=== PATIENT | male | born 1950 | race Caucasian/White ===

== ENCOUNTER 2017-10-20 17:57 | Emergency (ER) | payer MEDICARE ==
[2017-10-20 18:36] LABS: Absolute Lymphocytes (CBC) 1.8 K/uL (0.7-4.9); Absolute Monocytes 0.6 K/uL (0.1-1.3); Absolute Neutrophil 3.1 K/uL (1.8-8.0); Basophils % 0.1 % (0-1.3); Eosinophils % 1.1 % (0-4.4); Hematocrit 38.2 % (39.6-49.0); Lymphocytes % 32.1 % (15.3-44.8); MCV 91.6 fL (80-100); MPV 7.2 fL (7.6-11.3); RBC Red Blood Cell Count 4.17 M/uL (4.33-5.43)
[2017-10-20 18:37] LABS: Barbiturates NEGATIVE (NEGATIVE); Benzodiazepines NEGATIVE (NEGATIVE); Cocaine NEGATIVE (NEGATIVE); METHAMPHETAM NEGATIVE (NEGATIVE); Methadone NEGATIVE (NEGATIVE); Opiates NEGATIVE (NEGATIVE); Phencyclidine NEGATIVE (NEGATIVE); THC Cannibis NEGATIVE (NEGATIVE)
[2017-10-20 18:41] LABS: Protime INR 0.99
[2017-10-20 18:43] LABS: ALT/SGPT 28 U/L (12-78); AST/SGOT 15 U/L (15-37); Albumin 3.8 g/dL (3.4-5.0); Alkaline Phosphatase 56 U/L (45-117); BUN Blood Urea Nitrogen 14 mg/dL (7-18); Bicarbonate 26 mmol/L (21-32); Bilirubin Direct < 0.1 mg/dL (0-0.2); Bilirubin Total 0.4 mg/dL (0.2-1.0); Glucose Level 95 mg/dL (74-106); Potassium 3.6 mmol/L (3.5-5.1); Protein, Total 7.1 g/dL (6.4-8.2); Sodium Level 137 mmol/L (136-145)
[2017-10-20 18:50] LABS: Alcohol Serum/Plasma 238 mg/dL (0-3)
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
[2017-10-20 19:32] LABS: Urine Blood TRACE (NEG); Urine Glucose NEGATIVE (NEG); Urine Protein NEGATIVE (NEG); Urine Specific Gravity <1.005 (1.005-1.030)
[2017-10-20] MEDS ORDERED: HALOPERIDOL LACT 5 MG/ML INJ ONE (19:35)
[2017-10-20] MEDS ORDERED: NA CHLORIDE 0.9% 1,000 ML ONE (19:35)
[2017-10-20] MEDS ORDERED: DIPHENHYDRAMINE 50 MG/ML VIAL ONE (19:38)
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
--- NOTE | 2017-10-20 23:41 | EDPHYS ---
Physician Documentation [facility] Name: Anette Reis Age: 67 yrs Sex: Male : 1950 Arrival Date: 10/20/2017 Time: 17:57 Bed 4 Private MD: ED Physician Russ Beverly HPI: 10/20 18:34 This 67 yrs old Male presents to ER via EMS with complaints of Fall Injury. snw 18:34 Trauma demographics: County: The injury occurred in [place] Location of Injury: The snw injury occurred at home, Date: October 20, 2017. Mechanism of injury: Fall: the patient fell from a standing position approximately into bathtub. Associated injuries: The patient sustained unknown. Onset: The symptoms/episode began/occurred suddenly, just prior to arrival. Historical: - Allergies: 17:59 NKDA; aj1 - Home Meds: 17:59 lorazepam 1 mg Oral tab 1 tab 2 times per day [Active]; tramadol 50 mg Oral tab 1 tab aj1 twice a day as needed [Active]; - PMHx: 17:59 Anxiety; Seizures; tinnitus; aj1 - Immunization history: Last tetanus immunization: unknown. - Social history:: Smoking status: . - Ebola Screening: : Patient negative for fever greater than or equal to 101.5 degrees Fahrenheit, and additional compatible Ebola Virus Disease symptoms Patient denies exposure to infectious person Patient denies travel to an Ebola-affected area in the 21 days before illness onset No symptoms or risks identified at this time. ROS: 18:32 Constitutional: Negative for fever, chills, and weight loss, states he fell backward snw into bathtub. Denies LOC. EMS states pt was being cared for by Sister who was unable to care for herself. Eyes: Negative for injury, pain, redness, and discharge, ENT: Negative for injury, pain, and discharge, Neck: Negative for injury, pain, and swelling, Cardiovascular: Negative for chest pain, palpitations, and edema, Respiratory: Negative for shortness of breath, cough, wheezing, and pleuritic chest pain, Abdomen/GI: Negative for abdominal pain, nausea, vomiting, diarrhea, and constipation, Back: Negative for injury and pain, : Negative for injury, bleeding, discharge, and swelling, MS/Extremity: Negative for injury and deformity, Skin: Negative for injury, rash, and discoloration, Neuro: Negative for headache, weakness, numbness, tingling, and seizure. Exam: 18:04 Head/Face: Normocephalic, atraumatic. snw 18:04 ENT: Nares patent. No nasal discharge, no septal abnormalities noted. Tympanic membranes are normal and external auditory canals are clear. Oropharynx with no redness, swelling, or masses, exudates, or evidence of obstruction, uvula midline. Mucous membranes moist. Neck: Trachea midline, no thyromegaly or masses palpated, and no cervical lymphadenopathy. Supple, full range of motion without nuchal rigidity, or vertebral point tenderness. No Meningismus. Chest/axilla: Normal chest wall appearance and motion. Nontender with no deformity. No lesions are appreciated. Cardiovascular: Regular rate and rhythm with a normal S1 and S2. No gallops, murmurs, or rubs. Normal PMI, no JVD. No pulse deficits. Respiratory: Lungs have equal breath sounds bilaterally, clear to auscultation and percussion. No rales, rhonchi or wheezes noted. No increased work of breathing, no retractions or nasal flaring. Abdomen/GI: Soft, non-tender, with normal bowel sounds. No distension or tympany. No guarding or rebound. No evidence of tenderness throughout. Back: No spinal tenderness. No costovertebral tenderness. Full range of motion. 18:04 MS/ Extremity: Pulses equal, no cyanosis. Neurovascular intact. Full, normal range of motion. 18:04 Constitutional: The patient appears awake, smells of alcohol, restless, unkempt, singing Oscar songs. 18:04 Eyes: Periorbital structures: appear normal, Pupils: right pupil is approximately 4 mm(s), left pupil is approximately 3 mm(s), Extraocular movements: nystagmus on extreme lateral gaze, Conjunctiva: normal, Corneas: are normal, Sclera: no appreciated abnormality. 18:04 : Bladder: incontinent. 18:04 Skin: lesion(s), ecchymosis to left lower quad/flank. 18:04 Neuro: Orientation: is normal, Mentation: responsive to voice lucid, obviously intoxicated with hx of etoh abuse, seizure activity, is not displayed by the patient. Vital Signs: 17:59 BP 124 / 90; Pulse 83; Resp 18; Pulse Ox 95% on R/A; aj1 19:53 BP 121 / 72; Pulse 67; Resp 18; Pulse Ox 97% on 2 lpm NC; tl2 20:00 BP 101 / 63; Pulse 61; Resp 18; Pulse Ox 97% on R/A; aj1 21:08 BP 112 / 75; Pulse 62; Resp 18; Pulse Ox 96% on R/A; aj1 21:28 BP 144 / 80; Pulse 71; Resp 16; Pulse Ox 95% on R/A; aj1 22:55 BP 129 / 77; Pulse 67; Resp 18; Pulse Ox 96% on R/A; Pain 0/10; aa1 10/21 02:00 BP 126 / 80; Pulse 65; Resp 16; Pulse Ox 96% on R/A; Pain 0/10; aa1 04:00 BP 134 / 81; Pulse 71; Resp 16; Temp 98.2; Pulse Ox 97% on R/A; Pain 0/10; aa1 MDM: 10/20 17:57 Patient medically screened. snw 19:36 Data reviewed: vital signs, nurses notes. Data interpreted: Pulse oximetry: on room air snw is 95 %. ED course: Dr. Kenney requests pt be given haldol 5mg and benadryl 25mg IV now. Pt pulled tech on him and was uncovering himself, attempts made to redirect. Pt voices understanding and continues with inappropriate behavior. 21:08 ED course: random yelling outbursts. Reoriented and awaiting clinical sober appearance. snw 22:14 Physician consultation: Yuan Kenney MD. snw 23:41 ED course: Pt sober at baseline. Will arrange transportation to home. Stable. . ps1 10/20 17:58 Order name: Basic Metabolic Panel; Complete Time: 19:02 snw 10/20 17:58 Order name: CBC with Diff; Complete Time: 18:41 snw 10/20 17:58 Order name: Creatinine for Radiology; Complete Time: 18:40 snw 10/20 17:58 Order name: Type And Screen; Complete Time: 19:35 snw 10/20 17:58 Order name: ETOH Level; Complete Time: 19:02 snw 10/20 17:59 Order name: PT-INR; Complete Time: 19:02 snw 10/20 17:58 Order name: CT Traumagram (Head C Spine CAP W Con); Complete Time: 19:19 snw 10/20 17:59 Order name: Ptt, Activated; Complete Time: 19:02 snw 10/20 17:59 Order name: LFT's; Complete Time: 19:02 snw 10/20 18:06 Order name: Urine Drug Screen; Complete Time: 18:40 jb1 10/20 18:56 Order name: Urine Dipstick--Ancillary (enter results); Complete Time: 19:35 rg2 10/20 19:29 Order name: ABO/RH no charge; Complete Time: 19:35 EDMS 10/20 17:58 Order name: C-Collar; Complete Time: 18:00 snw 10/20 17:58 Order name: Labs collected and sent; Complete Time: 19:31 snw 10/20 17:58 Order name: Urine Dipstick-Ancillary (obtain specimen); Complete Time: 18:06 snw 10/20 19:22 Order name: Misc. Order; Complete Time: 19:58 snw 10/21 07:34 Order name: Diet Regular; Complete Time: 07:34 10/21 10:13 Order name: Misc. Order: Please ambulate with pt in hallway; Complete Time: 17:20 snw Administered Medications: 19:35 CANCELLED (other intervention used): HALdol (as decanoate) 10 mg IM once snw 19:40 Drug: NS 0.9% 1000 ml Route: IV; Rate: 1000 ml; Site: right antecubital; fc 22:05 Follow up: IV Status: Completed infusion aa1 19:40 Drug: HALdol 5 mg Route: IVP; Site: right antecubital; fc 19:40 Drug: Benadryl 25 mg Route: IVP; Site: right antecubital; fc Disposition: 23:41 Co-signature as Attending Physician, Yuan Kenney MD I agree with the assessment and ps1 plan of care. Disposition: 10/20/17 23:40 Discharged to Home. Impression: Fall on same level, unspecified, Alcohol abuse with intoxication, unspecified. - Condition is Stable. - Discharge Instructions: Alcohol Intoxication, Alcohol Use Disorder, Fall Prevention and Home Safety. - Medication Reconciliation Form, Thank You Letter, Antibiotic Education, Prescription Opioid Use form. - Follow up: Private Physician; When: 2 - 3 days; Reason: Recheck today's complaints, Continuance of care, Re-evaluation by your physician. Follow up: Emergency Department; When: As needed; Reason: Worsening of condition. - Problem is an ongoing problem. - Symptoms have improved. Signatures: Dispatcher [employer] EDCT Shelbi Moreno RN RN aj1 Yasmin Vann, REGGIE-C FARM MANAGEMENT ADVISER-Csnw Catarina Zheng, RN RN fc Cristal Marin RN RN iw Tommy Falk RN ÁLVARO hj Yuan Kenney MD MD ps1 Sarah Mejias RN aa1 Corrections: (The following items were deleted from the chart) 19:35 19:21 HALdol (as decanoate) 10 mg IM once ordered. snw snw 10/21 10:35 10/20 23:40 10/20/2017 23:40 Discharged to Home. Impression: Fall on same level, hj unspecified; Alcohol abuse with intoxication, unspecified. Condition is Stable. Discharge Instructions: Alcohol Intoxication, Alcohol Use Disorder, Fall Prevention and Home Safety. Forms are Medication Reconciliation Form, Thank You Letter, Antibiotic Education, Prescription Opioid Use. Follow up: Private Physician; When: 2 - 3 days; Reason: Recheck today's complaints, Continuance of care, Re-evaluation by your physician. Follow up: Emergency Department; When: As needed; Reason: Worsening of condition. Problem is an ongoing problem. Symptoms have improved. ps1
[2017-10-21 10:59] VITALS: BP 134/81; TEMP 98.2; O2SAT 97
== END 2017-10-21 10:35 | disposition home or self-care (01) ==
LOC: ER 17:57
DX: F10.129 Alcohol abuse with intoxication, unspecified (principal); W18.2XXA Fall in (into) shower or empty bathtub, initial encounter; Y93.89 Activity, other specified; Y92.002 Bathroom of unspecified non-institutional (private) residence as the place of occurrence of the external cause; F41.9 Anxiety disorder, unspecified; G40.909 Epilepsy, unspecified, not intractable, without status epilepticus
CPT/HCPCS: 36415; 70450; 71260; 72125; 74177; 80048; 80076; 80307 ×8; 80320; 81003; 85025; 85610; 85730; 86850; 86900; 86901; J1630; J7030; Q9967; 96361; 96374; 96375; 99285

== ENCOUNTER 2018-11-06 20:33 | Inpatient (IN) | payer MEDICARE ==
--- OUTSIDE RECORDS SUMMARY | 2018-11-06 20:35 | XMS REPORT | Summary of Care ---
:1950 Author Organization [facility] [place] Address [address] [place] [address]- Encounter HQ Zainr_laureen(FIN) [id number] Date(s): 09/05/18 - 09/06/18 [facility] [address] [place] [address]- [phone] Vital Signs No data available for this section Problem List Condition Effective Dates Status Health Status Informant Complex partial seizure(Confirmed) Active Meningocele(Confirmed) Active Tinnitus(Confirmed) Active Allergies, Adverse Reactions, Alerts Substance Reaction Severity Status TEGretol Active Medications No data available for this section Results No data available for this section Immunizations No data available for this section Procedures Procedure Date Related Diagnosis Body Site Status Craniotomy Completed Social History Social History Type Response Employment/School 1 Alcohol Current2 Smoking Status Former smoker; Type: Cigars; Exposure to Tobacco Smoke None; Cigarette Smoking Last 365 Days No; Reg Smoking Cessation Counseling No entered on: 07/24/18 1Pt. does not have a power of Vascular Neurologist. Can release medical information to Chayito Clements-Sister, Kath Espino-Sister, Rosina Richardson-Niece, Ladonna Dewitt- [id number] every day Assessment and Plan No data available for this section
--- OUTSIDE RECORDS SUMMARY | 2018-11-06 20:35 | XMS REPORT | Continuity of Care Document ---
:1950 Author Organization [facility] Care Team Providers Name Role Phone [facility] Unavailable Unavailable Problems Problem Status Onset Classification Date Comments Source Date Reported Complex partial Active Problem 09/14/2018 [facility] seizure Neuro Meningocele Active Problem 09/14/2018 [facility] Tinnitus Active Problem 09/14/2018 [facility] Neuro Medications No Data Provided for This Section Allergies, Adverse Reactions, Alerts Substance Category Reaction Severity Reaction Status Date Comments Source type Reported TEGretol Assertion Drug Active [facility] allergy Neuro Immunizations No Data Provided for This Section Results No Data Provided for This Section Pathology Reports No Data Provided for This Section Diagnostic Reports No Data Provided for This Section Consultation Notes No Data Provided for This Section Discharge Summaries No Data Provided for This Section History and Physicals No Data Provided for This Section Vital Signs Vital Sign Value Date Comments Source Height 177.8 cm 09/12/2018 [facility] Neuro BMI Calculated 29.91 09/12/2018 [facility] Weight 94.545 09/12/2018 [facility] Neuro Systolic (mm Hg) 126 09/12/2018 [facility] Neuro Diastolic (mm Hg) 71 09/12/2018 [facility] Neuro Respitory Rate 16 09/12/2018 [facility] Neuro Heart Rate 82 09/12/2018 [facility] Neuro Encounters Location Location Encounter Encounter Reason Attending ADM DC Status Source Details Type Number For Provider Date Date Visit Outpatient [id number] Sunday 07/24 [facility] Outpatient [id number] Sunday 08/07 [facility] Outpatient [id number] Sunday 08/28 [facility] [facility] Ambulatory [id number] Sunday 08/28 08/28 [facility] Neurology Pre-Reg [facility] /2018 [facility] [place] [facility] Outside [id number] 09/05 09/07 [facility] Neurology Medical /2018 Neuro [place] Records Outpatient [id number] Sunday 09/12 Active [facility] MNA Outpatient [id number] Sunday 09/12 09/13 [facility] Neurology [facility] /2018 [facility] [place] Outpatient [id number] Sunday 01/16 [facility] Procedures Procedure Code Date Perfomer Comments Source Craniotomy [id number] [facility] Neuro Assessment and Plan No Data Provided for This Section Plan of Care No Data Provided for This Section Social History Social History Date Source Social History TypeResponse 07/24/2018 [facility] Neuro Employment/School 1 Alcohol Current2 Smoking Status Former smoker; Exposure to Tobacco Smoke Unable to obtain; Cigarette Smoking Last 365 Days Unable to obtain; Reg Smoking Cessation Counseling No entered on: 09/12/18 1Pt. does not have a power of Doughnut Glazier. Can release medical information to Chayito Tyree-Sister, Kath Espino-Sister, Rosina Richardson-Niece, Ladonna Dewitt- [id number] every day Family History No Data Provided for This Section Advance Directives No Data Provided for This Section Functional Status No Data Provided for This Section
--- OUTSIDE RECORDS SUMMARY | 2018-11-06 20:35 | XMS REPORT | Summary of Care ---
:1950 Author Organization [facility] Neurology [place] Address [address] [place] [address]- Encounter HQ Yesika(FIN) [id number] Date(s): 09/12/18 - 09/12/18 [facility] [address], [place] [id number]- [phone] Discharge Disposition: Home or Self Care Attending Physician: Sunday Rivera MD Referring Physician: Christoph Neely MD Vital Signs Most recent to oldest [Reference Range]: 1 Height 177.8 cm (09/12/18 11:36 AM) Blood Pressure [90-140/60-90 mmHg] 126/71 mmHg (09/12/18 11:36 AM) Respiratory Rate [14-20 BRMIN] 16 BRMIN (09/12/18 11:36 AM) Peripheral Pulse Rate [60-100 bpm] 82 bpm (09/12/18 11:36 AM) Weight 94.545 kg (09/12/18 11:36 AM) Body Mass Index 29.91 m2 (09/12/18 11:36 AM) Problem List Condition Effective Dates Status Health Status Informant Complex partial seizure(Confirmed) Active Meningocele(Confirmed) Active Tinnitus(Confirmed) Active Allergies, Adverse Reactions, Alerts Substance Reaction Severity Status TEGretol Active Medications No Known Medications Results No data available for this section [...] 1Pt. does not have a power of Field Checker. Can release medical information to Chayito Clements-Sister, Kath Espino-Sister, Rosina King, Ladonna Singh2Almost every day Assessment and Plan No data available for this section
[2018-11-06] MEDS ORDERED: NA CHLORIDE 0.9% 1,000 ML ONE (21:06)
[2018-11-06] MEDS ORDERED: MULTIVITAMINS 10 ML VIAL (INJ) IV ONE (21:06)
[2018-11-06] MEDS ORDERED: THIAMINE 200 MG/2 ML INJ ONE (21:06)
[2018-11-06] MEDS ORDERED: FOLIC ACID 5 MG/ML VIAL ONE (21:07)
[2018-11-06 21:37] LABS: Absolute Lymphocytes (CBC) 0.7 K/uL (0.7-4.9); Basophils % 0.2 % (0-1.3); Eosinophils % 0.3 % (0-4.4); Lymphocytes % 5.2 % (15.3-44.8); MPV 7.7 fL (7.6-11.3); Monocytes % 7.6 % (3.3-12.3); RBC Red Blood Cell Count 4.78 M/uL (4.33-5.43)
[2018-11-06 21:42] LABS: Protime INR 1.03
[2018-11-06 21:57] LABS: Blood Morphology Comment NOT SEEN (NOT SEEN); Platelet Estimate ADEQ; Urine White Blood Cell Casts OK
[2018-11-06 22:03] LABS: ALT/SGPT 30 U/L (12-78); AST/SGOT 18 U/L (15-37); Albumin 3.9 g/dL (3.4-5.0); Alkaline Phosphatase 44 U/L (45-117); BUN Blood Urea Nitrogen 19 mg/dL (7-18); Bicarbonate 26 mmol/L (21-32); Bilirubin Direct 0.2 mg/dL (0-0.2); Bilirubin Total 0.7 mg/dL (0.2-1.0); Glucose Level 109 mg/dL (74-106); Potassium 3.5 mmol/L (3.5-5.1); Protein, Total 7.3 g/dL (6.4-8.2); Sodium Level 135 mmol/L (136-145); Troponin (Emerg Dept Use Only) < 0.02 ng/mL (0.0-0.045)
--- NOTE | 2018-11-06 22:34 | ER ---
Nurse's Notes [facility] Name: Anette Reis Age: 68 yrs Sex: Male : 1950 Arrival Date: 11/06/2018 Time: 20:34 Bed 8 Private MD: Diagnosis: Syncope and collapse Presentation: 11/06 20:44 Presenting complaint: EMS states: they were toned out for a lift assist for a pt who bb had fallen from the toilet and was unable to get up pt was between the toilet and the wall and was down approx 10 minutes prior to their arrival. Care prior to arrival: None. Mechanism of Injury: Fall toilet. Trauma event details: Injury occurred in the [facility], Injury occurred: at home. Injury occurred: November 06, 2018. 20:44 Acuity: RICO 2 bb 20:44 Method Of Arrival: EMS: [facility] bb 20:58 Transition of care: patient was not received from another setting of care. Onset of bb symptoms was November 06, 2018. Risk Assessment: Do you want to hurt yourself or someone else? Patient reports no desire to harm self or others. Initial Sepsis Screen: Does the patient meet any 2 criteria? No. Patient's initial sepsis screen is negative. Does the patient have a suspected source of infection? No. Patient's initial sepsis screen is negative. Historical: - Allergies: 23:36 NKDA; bb - Home Meds: 23:36 lorazepam 1 mg Oral tab 1 tab [Active]; tramadol 50 mg Oral tab 1 tab twice a day as bb needed [Active]; - PMHx: 23:36 Anxiety; Seizures; tinnitus; bb - Immunization history: Last tetanus immunization: unknown. - Social history:: Patient/guardian denies using alcohol, street drugs, The patient lives with family, Smoking status: unknown. - Family history:: not pertinent. - Ebola Screening: : No symptoms or risks identified at this time. Screenin/09 21:00 Nutritional screening: EMS states pt is given Ritz crackers for food.. bb 11/06 20:44 Abuse screen: Denies threats or abuse. Tuberculosis screening: No symptoms or risk bb factors identified. 21:00 Fall Risk Fall in past 12 months (25 points). Secondary diagnosis (15 points) impaired bb mobility, IV access (20 points). Ambulatory Aid- None/Bed Rest/Nurse Assist (0 pts). Mental Status- Overestimates/Forgets Limitations (15 pts.). Total Anand Fall Scale indicates High Risk Score (45 or more points). Fall prevention measures have been instituted. Side Rails Up X 2. Primary Survey: 20:44 NO uncontrolled hemorrhage observed. Breathing/Chest: Respiratory pattern: regular, bb Respiratory effort: spontaneous, unlabored, Breath sounds: clear, bilaterally. Chest inspection: symmetrical rise and fall of the chest. Circulation: Heart tones present. Pulses: palpable right radial artery, right dorsalis pedis artery, left radial artery and left dorsalis pedis artery. Skin color: pink, Skin temperature: warm. Disability Alert. Exposure/Environment: All clothing and personal items were removed. Forensic evidence collection is not deemed to be indicated at this time. Items placed in patient belonging bag. Secondary Survey: 20:44 HEENT: No deficits noted. Gastrointestinal: Bowel sounds hyperactive in right upper bb quadrant, left upper quadrant, right lower quadrant and left lower quadrant. : No deficits noted. Musculoskeletal: Circulation, motion, and sensation intact. Assessment: 20:44 General: Appears in no apparent distress. slender, unkempt, Behavior is calm, bb cooperative, listless. Pain: Complains of pain in abdomen. Neuro: Level of Consciousness is awake, alert, obeys commands, Oriented to person, place. Cardiovascular: Heart tones S1 S2 present Capillary refill < 3 seconds Patient's skin is warm and dry. Pulses are all present. Edema is absent. Rhythm is sinus tachycardia. Respiratory: Airway is patent Respiratory effort is even, unlabored, Respiratory pattern is regular, Breath sounds are clear bilaterally. GI: Abdomen is flat, Bowel sounds hyperactive in right upper quadrant, left upper quadrant, right lower quadrant and left lower quadrant Abd is soft X 4 quads. Derm: Skin is pink, warm \T\ dry. Derm: Decubitus located on left big toe. Musculoskeletal: Circulation, motion, and sensation intact. 21:00 Reassessment: turbine technician and this RN at bedside for bed bath, pt has decubitis on right bb gluteus with blanching erythema to buttocks and right hip. 21:40 Reassessment: Patient and/or family updated on plan of care and expected duration. Pain bb level reassessed. pt to CT scan via stretcher with automation control technician. 23:00 Reassessment: pt resting quietly, IV site intact, patent with fluids infusing awaiting bb room assignment. 23:58 Reassessment: Patient and/or family updated on plan of care and expected duration. Pain bb level reassessed. pt is resting quietly, given juice, IV site intact, patent with fluids infusing. 11/07 00:39 Reassessment: report called to Brian REA for room 402, pt is A\T\O x 2, resp unlabored, IV bb site intact, patent with fluids infusing, pt transported via stretcher accompanied by turbine technician. Vital Signs: 11/06 20:44 BP 117 / 88; Pulse 106; Resp 24 S; Temp 99.5(O); Pulse Ox 92% on R/A; bb 21:45 BP 125 / 89; Pulse 94; Resp 16 S; Pulse Ox 93% on R/A; bb 22:59 BP 127 / 91; Pulse 84; Resp 22; Pulse Ox 95% on R/A; bb 23:58 BP 140 / 86; Pulse 77; Resp 22; Pulse Ox 92% on R/A; bb [place] Coma Score: 20:44 Eye Response: spontaneous(4). Verbal Response: oriented(5). Motor Response: obeys bb commands(6). Total: 15. Trauma Score (Adult): 20:44 Eye Response: spontaneous(1); Verbal Response: oriented(1); Motor Response: obeys bb commands(2); Systolic BP: > 89 mm Hg(4); Respiratory Rate: 10 to 29 per min(4); Ja Score: 15; Trauma Score: 12 ED Course: 20:34 Patient arrived in ED. am2 20:35 Kenneth Maradiaga MD is Attending Physician. ma2 20:43 Kylee Herman, ÁLVARO is Primary Nurse. bb 20:44 Patient has correct armband on for positive identification. Placed in gown. Bed in low bb position. Call light in reach. Side rails up X2. Patient maintains SpO2 saturation greater than 95% on room air. satellite project site monitor on. Pulse ox on. NIBP on. 20:44 Arm band placed on. bb 20:47 Triage completed. bb 20:52 Radiology exam delayed due to getting sponge bath at this time, TALIA WAGON DRILL OPERATOR to call 2 when pt ready. 21:00 Turned to right side. bb 21:26 Initial lab(s) drawn, by me, sent to lab. EKG done, by ED staff, reviewed by Kenneth Maradiaga MD. Inserted saline lock: 20 gauge in right forearm, using aseptic technique. 21:[address] jc 21:51 CT Head Brain wo Cont In Process Unspecified. EDMS 22:32 Henrry Almaraz MD is Hospitalizing Provider. ma2 23:40 Patient admitted, IV remains in place. bb 23:41 No provider procedures requiring assistance completed. bb 23:52 Turned to left side. bb 23:55 Diet: Patient given juice. bb Administered Medications: 21:35 Drug: Banana Bag - (NS 0.9% 1000 ml, foLIC Acid 1 mg, Thiamine 100 mg, Multivitamin 1 bb amp) Route: IV; Rate: calculated rate; Site: right forearm; 11/07 00:42 Follow up: IV Status: Infusion continued upon admission; IV Intake: 750ml bb Intake: 11/06 20:44 PO: 0ml; Total: 0ml. bb 11/07 00:42 IV: 750ml; Total: 750ml. bb Outcome: 11/06 22:33 Decision to Hospitalize by Provider. ma2 23:01 Instructed on the need for admit. bb 11/07 00:41 Admitted to Tele accompanied by tech, via stretcher, room 402, with chart, Report bb called to Brian REA Condition: stable 00:44 Patient left the ED. bb Signatures: Dispatcher [employer] EDKylee Morrissey RN RN Salvador Li Amanda am2 [place], [facility] Kenneth Maradiaga MD MD riEvens Corrections: (The following items were deleted from the chart) 11/06 22:25 20:44 Neuro: Level of Consciousness is awake, alert, obeys commands, Oriented to bb person, place, situation, bb 22:25 21:40 Reassessment: Patient and/or family updated on plan of care and expected bb duration. Pain level reassessed. Patient is alert, oriented x 3, equal unlabored respirations, skin warm/dry/pink. pt to CT scan via stretcher with automation control technician lela
--- NOTE | 2018-11-06 22:34 | EDPHYS ---
Physician Documentation [facility] Name: Anette Reis Age: 68 yrs Sex: Male : 1950 Arrival Date: 11/06/2018 Time: 20:34 Bed 8 Private MD: ED Physician Kenneth Maradiaga HPI: 11/06 22:31 This 68 yrs old Male presents to ER via EMS with complaints of Fall Injury. ma2 22:31 Details of fall: The patient fell from seated position. Onset: The symptoms/episode ma2 began/occurred suddenly, 1 hour(s) ago. Associated injuries: The patient sustained injury to the head. Severity of symptoms: At their worst the symptoms were moderate, in the emergency department the symptoms are unchanged. It is unknown whether or not the patient has had similar symptoms in the past. Historical: - Allergies: 23:36 NKDA; bb - Home Meds: 23:36 lorazepam 1 mg Oral tab 1 tab [Active]; tramadol 50 mg Oral tab 1 tab twice a day as bb needed [Active]; - PMHx: 23:36 Anxiety; Seizures; tinnitus; bb - Immunization history: Last tetanus immunization: unknown. - Social history:: Patient/guardian denies using alcohol, street drugs, The patient lives with family, Smoking status: unknown. - Family history:: not pertinent. - Ebola Screening: : No symptoms or risks identified at this time. ROS: 22:31 Constitutional: Negative for fever, chills, and weight loss. ma2 22:31 All other systems are negative. Exam: 22:31 Constitutional: This is a well developed, well nourished patient who is awake, alert, ma2 and in no acute distress. Chest/axilla: Normal chest wall appearance and motion. Nontender with no deformity. No lesions are appreciated. Cardiovascular: Regular rate and rhythm with a normal S1 and S2. No gallops, murmurs, or rubs. Normal PMI, no JVD. No pulse deficits. Respiratory: Lungs have equal breath sounds bilaterally, clear to auscultation and percussion. No rales, rhonchi or wheezes noted. No increased work of breathing, no retractions or nasal flaring. Abdomen/GI: Soft, non-tender, with normal bowel sounds. No distension or tympany. No guarding or rebound. No evidence of tenderness throughout. MS/ Extremity: Pulses equal, no cyanosis. Neurovascular intact. Full, normal range of motion. Neuro: Awake and alert, GCS 15, oriented to person, place, time, and situation. Cranial nerves II-XII grossly intact. Motor strength 5/5 in all extremities. Sensory grossly intact. Cerebellar exam normal. Normal gait. Vital Signs: 20:44 BP 117 / 88; Pulse 106; Resp 24 S; Temp 99.5(O); Pulse Ox 92% on R/A; bb 21:45 BP 125 / 89; Pulse 94; Resp 16 S; Pulse Ox 93% on R/A; bb 22:59 BP 127 / 91; Pulse 84; Resp 22; Pulse Ox 95% on R/A; bb 23:58 BP 140 / 86; Pulse 77; Resp 22; Pulse Ox 92% on R/A; bb [place] Coma Score: 20:44 Eye Response: spontaneous(4). Verbal Response: oriented(5). Motor Response: obeys bb commands(6). Total: 15. Trauma Score (Adult): 20:44 Eye Response: spontaneous(1); Verbal Response: oriented(1); Motor Response: obeys bb commands(2); Systolic BP: > 89 mm Hg(4); Respiratory Rate: 10 to 29 per min(4); Ja Score: 15; Trauma Score: 12 MDM: 20:35 Patient medically screened. [facility] 22:31 Differential diagnosis: contusion, fracture, laceration, sprain, strain. Data reviewed: [facility] vital signs, nurses notes. Counseling: I had a detailed discussion with the patient and/or guardian regarding: the historical points, exam findings, and any diagnostic results supporting the discharge/admit diagnosis, the presence of at least one elevated blood pressure reading (>120/80) during this emergency department visit, the need for further work-up and treatment in the hospital. Response to treatment: the patient's symptoms have markedly improved after treatment. 11/07 00:23 ED course: D-Dimer reported to Dr Almaraz. kb 11/06 20:41 Order name: Troponin (emerg Dept Use Only); Complete Time: 22:29 ma2 11/06 20:41 Order name: Acetaminophen; Complete Time: 22:29 vt2 11/06 20:41 Order name: Basic Metabolic Panel; Complete Time: 22:29 [facility] 11/06 20:41 Order name: CBC with Diff; Complete Time: 22:29 [facility] 11/06 20:41 Order name: ETOH Level; Complete Time: 22:29 [facility] 11/06 20:41 Order name: Hepatic Function; Complete Time: 22:29 [facility] 11/06 20:41 Order name: CT Head Brain wo Cont [facility] 11/06 20:41 Order name: PT-INR [facility] 11/06 20:41 Order name: Ptt, Activated [facility] 11/06 20:41 Order name: Salicylate; Complete Time: 22:29 [facility] 11/06 20:41 Order name: Urine Drug Screen [facility] 11/06 21:41 Order name: CBC Smear Scan; Complete Time: 22:29 [facility] 11/06 22:32 Order name: Urine Dipstick--Ancillary (enter results) [facility] 11/07 00:21 Order name: D-Dimer [facility] 11/06 20:41 Order name: Urine Dipstick-Ancillary (obtain specimen); Complete Time: 22:06 [facility] 11/06 20:41 Order name: EKG; Complete Time: 20:42 [facility] 11/06 20:41 Order name: EKG - Nurse/Tech; Complete Time: 21:37 [facility] 11/06 20:41 Order name: IV Saline Lock; Complete Time: 21:37 [facility] 11/06 20:41 Order name: Labs collected and sent; Complete Time: 21:37 [facility] Administered Medications: 11/06 21:35 Drug: Banana Bag - (NS 0.9% 1000 ml, foLIC Acid 1 mg, Thiamine 100 mg, Multivitamin 1 bb amp) Route: IV; Rate: calculated rate; Site: right forearm; 11/07 00:42 Follow up: IV Status: Infusion continued upon admission; IV Intake: 750ml bb Disposition: 02:12 Co-signature as Attending Physician, Kenneth Maradiaga MD. [facility] Disposition: 11/06/18 22:33 Hospitalization ordered by Henrry Almaraz for Observation. Preliminary diagnosis is Syncope and collapse. - Bed requested for Telemetry/MedSurg (observation). - Status is Observation. bb - Condition is Stable. - Problem is new. - Symptoms are unchanged. UTI on Admission? No Signatures: Dispatcher [employer] EDMS Cynthia Figueroa, BALL MILL MIXER-C BALL MILL MIXER-Ckb Kylee Herman RN RN bb Roshni Sandoval RN RN Kenneth Maradiaga MD MD ma2 Corrections: (The following items were deleted from the chart) 11/06 23:52 22:33 Hospitalization Ordered by Henrry Almaraz MD for Observation. Preliminary cg diagnosis is Syncope and collapse. Bed requested for Telemetry/MedSurg (observation). Status is Observation. Condition is Stable. Problem is new. Symptoms are unchanged. UTI on Admission? No. ma2 11/07 00:44 11/06 23:52 11/06/2018 22:33 Hospitalization Ordered by Henrry Almaraz MD for bb Observation. Preliminary diagnosis is Syncope and collapse. Bed requested for Telemetry/MedSurg (observation). Status is Observation. Condition is Stable. Problem is new. Symptoms are unchanged. UTI on Admission? No.
--- NOTE | 2018-11-06 23:49 | P.HP ---
Certification for Inpatient Patient admitted to: Observation With expected LOS: <2 Midnights Practitioner: I am a practitioner with admitting privileges, knowledge of patient current condition, hospital course, and medical plan of care. Services: Services provided to patient in accordance with Admission requirements found in Title 42 Section 412.3 of the Code of Federal Regulations Patient History Date of Service: 11/06/18 Reason for admission: syncope History of Present Illness: Mr Reis is a 68 years old male with history of alcohol abuse, HTN, seizure disorder, who had a fall while he was on the toilet. Family member called 911 because the patient was stuck between the wall and the toilete, unable to stand up. At my encounter the patient was very confused, unable to provide history. alcohol level was 5. No reported chest pain, SOB or palpitation, per EMS records , prior the fall. CT head remarkable for significant atrophy, no obvious intracranial bleeding, awaiting radiology report. Lab work shows WBC 12.1K, he was tachycardic 116 bpm, BP 117/88, afebrile, O2 sat 92% on RA. EKG shows normal SR at 100 bpm, incomplete RBBB, no ST abnormalities, T wave inverion on anterior leads (not new). Allergies No Known Allergy (Uncoded 12/28/16 17:59) Unknown No Known Drug Allergy (Uncoded 09/29/15 19:13) Unknown No Known Drug Allergie Allergy (Uncoded 10/21/17 10:39) Unknown Home Medications: Loperamide [Imodium*] 2 mg PO Q4HP PRN #30 cap 01/20/14 - Past Medical/Surgical History Diabetic: No -: Seizure -: Constipation -: Hemorriods -: Tinnitis -: etoh abuse -: Craniotomy in 2004 - Family History Family History: Reviewed- Non-Contributory - Social History Alcohol use: Yes Caffeine use: Yes Place of Residence: Home Review of Systems 10-point ROS is otherwise unremarkable Physical Examination - Physical Exam General: Alert, In no apparent distress, Confused HEENT: Atraumatic, PERRLA, Mucous membr. moist/pink, EOMI, Sclerae nonicteric Neck: Supple, 2+ carotid pulse no bruit, No LAD, Without JVD or thyroid abnormality Respiratory: Clear to auscultation bilaterally, Normal air movement Cardiovascular: Regular rate/rhythm, Normal S1 S2 Gastrointestinal: Normal bowel sounds, No tenderness Musculoskeletal: Tenderness (tender to palpation left calf) Integumentary: No rashes Neurological: Normal speech, Normal strength at 5/5 x4 extr, Normal tone, Normal affect Lymphatics: No axilla or inguinal lymphadenopathy - Studies Laboratory Data (last 24 hrs) 11/06/18 21:26: PT 12.1, INR 1.03, APTT 26.4 11/06/18 21:26: WBC 12.9 H, Hgb 14.2, Hct 43.0, Plt Count 231 11/06/18 21:26: Sodium 135 L, Potassium 3.5, BUN 19 H, Creatinine 1.09, Glucose 109 H, Total Bilirubin 0.7, AST 18, ALT 30, Alkaline Phosphatase 44 L Assessment and Plan - Problems (Diagnosis) (1) Fall Current Visit: Yes Status: Acute Qualifiers: Encounter type: initial encounter Qualified Code(s): W19.XXXA - Unspecified fall, initial encounter (2) Acute encephalopathy Current Visit: Yes Status: Acute (3) ETOH abuse Current Visit: No Status: Acute - Plan The patient will be admitted to the hospital due to fall, acute encephalopathy. Differential diagnosis include, alcohol intoxication, seizure, CVA, thromboembolic episode. Will order brain MRI, d-dimer. Fall precaution. - Advance Directives Does patient have a Living Will: No Does patient have a Durable POA for Healthcare: No - Code Status/Comfort Care Code Status Assessed: Yes Code Status: Full Code
[2018-11-07 00:01] LABS: Barbiturates NEGATIVE (NEGATIVE); Benzodiazepines NEGATIVE (NEGATIVE); Cocaine NEGATIVE (NEGATIVE); METHAMPHETAM NEGATIVE (NEGATIVE); Methadone NEGATIVE (NEGATIVE); Opiates NEGATIVE (NEGATIVE); Phencyclidine NEGATIVE (NEGATIVE); THC Cannibis NEGATIVE (NEGATIVE)
[2018-11-07 00:17] LABS: Urine Blood NEGATIVE (NEG); Urine Glucose NEGATIVE (NEG); Urine Protein 2+ (NEG); Urine Specific Gravity >1.030 (1.005-1.030); Urine pH 5.5 (5.0-7.0)
[2018-11-07] MEDS: NA CHLORIDE 0.9% 1,000 ML IV SCH ×2 (01:13→04:50)
[2018-11-07] MEDS ORDERED: ONDANSETRON 4 MG/2 ML VIAL IV PRN (01:13)
[2018-11-07 01:16] VITALS: BMI 25.0
[2018-11-07 05:20] LABS: Absolute Lymphocytes (CBC) 1.4 K/uL (0.7-4.9); Basophils % 0.3 % (0-1.3); Eosinophils % 0.5 % (0-4.4); Hematocrit 37.2 % (39.6-49.0); Lymphocytes % 15.5 % (15.3-44.8); MPV 7.8 fL (7.6-11.3); RBC Red Blood Cell Count 4.15 M/uL (4.33-5.43)
[2018-11-07 05:34] LABS: Potassium 3.5 mmol/L (3.5-5.1)
--- NOTE | 2018-11-07 07:36 | EKG ---
Test Date: 2018-11-06 Test Time: 21:35:51 Primary Care Nurse Practitioner: AG3 MEASUREMENT RESULTS: Intervals: Rate: 94 FL: 204 QRSD: 98 QT: 392 QTc: 490 [place]field: P: 53 FL: 204 QRS: -68 T: 24 INTERPRETIVE STATEMENTS: Normal sinus rhythm Left axis deviation Incomplete right bundle branch block Anterior infarct, age undetermined ST & T wave abnormality, consider lateral ischemia Abnormal ECG Compared to ECG 12/28/2016 14:27:13 Incomplete right bundle-branch block now present Myocardial infarct finding now present ST (T wave) deviation now present First degree AV block no longer present T-wave abnormality no longer present Possible ischemia still present Electronically Signed On 11-07-18 07:35:24 CDT by Aristeo Mcguire
--- NOTE | 2018-11-07 08:52 | RAD REPORT ---
EXAM DESCRIPTION: US - Extrem Venous W Compress Loyd - 11/07/2018 8:46 am CLINICAL HISTORY: Bilateral calf pain COMPARISON: None. TECHNIQUE: Real-time sonographic evaluation of the bilateral lower extremity common femoral, superfi cial femoral, popliteal and posterior tibial veins was performed. FINDINGS: Normal compressibility, flow augmentation, phasic flow and spontaneous flow are identified in the left and right lower extremity common femoral, superficial femoral, popliteal and posterior t ibial veins. No intraluminal filling defects seen. IMPRESSION: No DVT in either lower extremity.
[2018-11-07] MEDS ORDERED: POTASSIUM 25 MEQ EFFERV TAB PO ONE (09:00)
[2018-11-07] MEDS: FOLIC ACID 1 MG, MULTIVITAMINS INJ 10 ML, THIAMINE HCL 100 MG in NA CHLORIDE 0.9% 1,000 ML IV SCH (09:25)
[2018-11-07] MEDS: ENOXAPARIN 40 MG/0.4 ML SQ SCH (09:28)
--- NOTE | 2018-11-07 11:10 | RAD REPORT ---
EXAM DESCRIPTION: CT - Head Brain Wo Cont - 11/07/2018 4:36 am CLINICAL HISTORY: 68 years Male CONFUSED COMPARISON: MRI brain without contrast dated 09/03/2018 TECHNIQUE: Contiguous axial images of the brain were obtained without the administration of intraven ous contrast.This exam was performed according to our departmental dose-optimization program which in cludes use of Automated Exposure Control, adjustment of the mA and/or kV according to patient size an d/or use of iterative reconstruction technique. FINDINGS: Brain: Prior right temporal and left frontal temporal marty holes. Unchanged large area of encephalomalacia involving the right frontotemporal lobe. No acute intracranial hemorrhage. No extra- axial collection. No mass effect or herniation. Unchanged prominence of the sulci and cisterns Conf luent periventricular and subcortical white matter hypodensity is noted. Continued evidence of sugges tive meningocele in the right middle cranial fossa. Ventricles: Allowing for underlying cerebral volume loss, ventricular size appears within normal limi ts. Globes and orbits: No acute abnormality. Bones: No acute osseous finding. Paranasal sinuses: Paranasal sinuses are clear.. Mastoid air cells: Well pneumatized. Soft tissues: Within normal limits IMPRESSION: No acute intracranial hemorrhage, hydrocephalus or herniation. Redemonstration of postsurgical changes as well as right frontotemporal encephalomalacia and right mi ddle cranial fossa meningocele. Cerebral volume loss and chronic small vessel ischemic changes.. Electronically signed by: Aristeo Elaine DO 11/06/2018 10:03 PM CDT Due to temporary technical issues with the PACS/Fluency reporting system, reports are being signed b y the in house radiologist as a courtesy to ensure prompt reporting. The interpreting radiologist is fully responsible for the content of the report.
--- NOTE | 2018-11-07 13:30 | PN ---
Date of Progress Note: 11/07/2018 Subjective: The patient seen and examined. Chart reviewed and case discussed with RN. The patient definitely has some confabulation, not a good history provider. No acute signs of alcohol withdrawal. Medications: List reviewed. Code Status: Full. Physical Examination: Vital Signs: Temperature 97.4, heart rate 63, blood pressure 119/72, respirations 20, O2 96% on room air. General: Awake, alert, and oriented x1, not in any acute distress. Appears older than stated age. CV: S1 and S2. Regular rate and rhythm. Peripheral pulses present. Respiratory: Diminished breath sounds at the bases. No wheezing or crackles. Gastrointestinal: Abdomen is soft, nontender, nondistended. Positive bowel sounds. Extremities: No clubbing, cyanosis, or edema. Neurologic: Cranial nerves 2 through 12 intact grossly. No focal neurological deficit. Speech is normal. Laboratory Data: Sodium 138, potassium 3.5, chloride 104, CO2 29, BUN 17, creatinine 0.89, glucose 100, calcium 8.3, ammonia 15. WBC 9.1, H and H 12.5 and 37.2, platelets 215, neutrophils 74%. UDS is negative. Serum alcohol level was 5. Venous Doppler study showed no DVT in either lower extremity. Assessment And Plan: A 68-year-old male with: 1. Status post fall, likely mechanical. We will continue with PT, OT. 2. Acute metabolic encephalopathy, likely related to his alcoholism. The patient is oriented x1. We will discuss with family regarding baseline. 3. Alcohol abuse. No signs of alcohol withdrawal at this time. Level was elevated yesterday. 4. Obesity BMI>30 Plan: Poultry Picker for discharge planning. Continue folic acid and thiamine. MRI of the brain pending. SA/MODL Voice ID: [id number] Report ID: [id number] [facility]
[2018-11-08] MEDS: NA CHLORIDE 0.9% 1,000 ML IV SCH ×2 (03:53→16:34)
[2018-11-08] MEDS: HYDRALAZINE HCL 20 MG/ML VIAL IV PRN (05:31)
[2018-11-08 06:28] LABS: Absolute Lymphocytes (CBC) 1.4 K/uL (0.7-4.9); Basophils % 0.5 % (0-1.3); Eosinophils % 1.7 % (0-4.4); Hematocrit 38.3 % (39.6-49.0); Lymphocytes % 20.7 % (15.3-44.8); MPV 8.3 fL (7.6-11.3); Monocytes % 10.4 % (3.3-12.3); RBC Red Blood Cell Count 4.22 M/uL (4.33-5.43)
[2018-11-08 06:50] LABS: ALT/SGPT 24 U/L (12-78); AST/SGOT 12 U/L (15-37); Albumin 3.3 g/dL (3.4-5.0); Alkaline Phosphatase 42 U/L (45-117); BUN Blood Urea Nitrogen 14 mg/dL (7-18); Bicarbonate 28 mmol/L (21-32); Bilirubin Total 0.4 mg/dL (0.2-1.0); Glucose Level 82 mg/dL (74-106); Magnesium 2.5 mg/dL (1.8-2.4); Potassium 4.3 mmol/L (3.5-5.1); Protein, Total 6.2 g/dL (6.4-8.2); Sodium Level 142 mmol/L (136-145)
--- NOTE | 2018-11-08 08:22 | RAD REPORT ---
EXAM DESCRIPTION: MRI - Brain W/Wo Cont - 11/07/2018 9:55 pm CLINICAL HISTORY: syncope Headache, drowsiness COMPARISON: Head Brain Wo Cont dated 11/06/2018; Brain Wo Cont dated 09/03/2018 TECHNIQUE: Multi-sequence, multiplanar MR imaging of the brain was performed with contrast. FINDINGS: No intracranial hemorrhage is seen. No midline shift or hydrocephalus.Generalized brain at rophy seen. Significant cystic encephalomalacia in the right temporoparietal region again noted with a small right-sided meningocele, unchanged.. DWI is negative for acute CVA. The midline structures are normally formed. Mastoid air cells and paranasal sinuses are clear. Previo us craniotomy seen bilaterally. Post-contrast images show no abnormal enhancement to suggest tumor or infection. IMPRESSION: Negative for acute CVA or other acute intracranial process. Stable examination compared to 09/03/2018.
[2018-11-08] MEDS: FOLIC ACID 1 MG, MULTIVITAMINS INJ 10 ML, THIAMINE HCL 100 MG in NA CHLORIDE 0.9% 1,000 ML IV SCH (09:21)
[2018-11-08] MEDS: ENOXAPARIN 40 MG/0.4 ML SQ SCH (09:22)
[2018-11-08] MEDS ORDERED: THIAMINE HCL 100 MG TABLET PO SCH (11:29)
--- NOTE | 2018-11-08 12:58 | PN ---
Date of Progress Note: 11/08/2018 Subjective: The patient seen and examined. Chart reviewed and case discussed with RN. The patient seems to be more alert today. However, still not completely oriented. No family at the bedside. Medications: List reviewed. Physical Examination: Vital Signs: Temperature 97.1, heart rate 70, blood pressure 105/63, respirations 15, O2 94% on room air. General: Awake, alert, oriented x2, not in any acute distress. CV: S1 and S2. Regular rate and rhythm. Peripheral pulses present. Respiratory: Moving air well bilaterally. No wheezing. Gastrointestinal: Abdomen is soft, nontender, nondistended. Positive bowel sounds. Extremities: No clubbing, cyanosis, or edema. Neurologic: Nonfocal. Laboratory Data: Sodium 142, potassium 4.3, chloride 108, CO2 28, BUN 14, creatinine 0.84, glucose 8 2, calcium 8.5, magnesium 2.5, AST 12, ALT 24. WBC 7, H and H of 13 and 38.3, platelets 206. MRI of the brain shows negative for acute cerebrovascular accident. Stable examination compared to August. Assessment And Plan: A 68-year-old male with: 1.Status post fall, may be due to alcohol abuse. Continue with fall precautions. Continue with PT, OT. 2.Acute metabolic encephalopathy. The patient has symptoms of confabulation, more alert and oriente d today. No family at bedside, improving. 3.Alcohol abuse. We will continue to monitor for signs of withdrawal. Continue with banana bag. 4.Overweight, BMI 25. 5.Deep venous thrombosis prophylaxis addressed. Plan: The patient's sister states that she is unable to take care of him moving forward. The [facility] will need placement to [facility]. Social Work have sonali gunn consulted. /MARYL Voice ID: [id number] Report ID: [id number]
[2018-11-09] MEDS: NA CHLORIDE 0.9% 1,000 ML IV SCH ×4 (02:52→19:53)
[2018-11-09 05:38] LABS: Absolute Lymphocytes (CBC) 0.8 K/uL (0.7-4.9); Basophils % 0.1 % (0-1.3); Eosinophils % 0.9 % (0-4.4); Hematocrit 37.5 % (39.6-49.0); Lymphocytes % 10.1 % (15.3-44.8); MPV 8.2 fL (7.6-11.3); Monocytes % 9.1 % (3.3-12.3); RBC Red Blood Cell Count 4.13 M/uL (4.33-5.43)
[2018-11-09 05:51] LABS: BUN Blood Urea Nitrogen 14 mg/dL (7-18); Bicarbonate 29 mmol/L (21-32); Glucose Level 94 mg/dL (74-106); Potassium 3.4 mmol/L (3.5-5.1); Sodium Level 143 mmol/L (136-145)
[2018-11-09] MEDS ORDERED: POTASSIUM 25 MEQ EFFERV TAB PO ONE (06:09)
[2018-11-09] MEDS: FOLIC ACID 1 MG, MULTIVITAMINS INJ 10 ML, THIAMINE HCL 100 MG in NA CHLORIDE 0.9% 1,000 ML IV SCH (09:18)
[2018-11-09] MEDS: ENOXAPARIN 40 MG/0.4 ML SQ SCH (09:18)
[2018-11-09] MEDS: LORazepam 2 MG/ML VIAL IV PRN (13:30)
[2018-11-09] MEDS ORDERED: POTASSIUM CL SA 10 MEQ TAB PO ONE (13:36)
--- NOTE | 2018-11-09 14:33 | PN ---
Date of Progress Note: 11/09/2018 Subjective: The patient is seen and examined. Chart reviewed and case discussed with RN. The patient oriented to self only. Does not appear to be any acute distress. No complaints. Medications: List reviewed. Objective: Vital Signs: Temperature 97, heart rate 74, blood pressure 128/75, respirations 16, O2 97% on room air. General: Awake, alert, oriented x1. No acute distress. CV: S1, S2. No murmurs. Peripheral pulses present. Respiratory: No wheezing or stridor. Gastrointestinal: Abdomen is soft, nontender, nondistended. Positive bowel sounds. Extremities: No clubbing, cyanosis, or edema. Neurologic: Nonfocal. Laboratory Data: Sodium 143, potassium 3.4, chloride 108, CO2 29, BUN 14, creatinine 0.74, glucose 94, calcium 8.7. WBC 8, H and H 12.8 and 37.5, platelets 215, neutrophils 79%. Assessment And Plan: A 68-year-old male with: 1. Status post fall likely related to his alcohol. Continue with fall precautions. Continue PT and OT. 2. Acute metabolic encephalopathy, improved. Appears to be back to baseline. No family at the bedside. 3. Alcohol abuse. The patient did have some signs of withdrawal. We will continue to monitor using CIWA protocol. Continue multivitamins with thiamine and folate. Ativan p.r.n. 4. Overweight. Body mass index 25. 5. Deep venous thrombosis prophylaxis with Lovenox. 6. Hypokalemia. We will replace and monitor. 7. Hypermagnesemia. Plan: Pending [facility] facility placement. ADDENDUM: Called regarding agitation. Patient ripped out IV lines. Ordered Haldol 5mg IM with benadryl. Monitor for signs of etoh withdrawal SA/MODL Voice ID: [id number] Report ID: [id number] [facility]Ryan
[2018-11-09] MEDS ORDERED: DIPHENHYDRAMINE 50 MG/ML VIAL IM ONE (18:41)
[2018-11-09] MEDS ORDERED: HALOPERIDOL LACT 5 MG/ML INJ IM PRN (18:41)
[2018-11-10] MEDS: ENOXAPARIN 40 MG/0.4 ML SQ SCH (08:28)
[2018-11-10] MEDS: FOLIC ACID 1 MG, MULTIVITAMINS INJ 10 ML, THIAMINE HCL 100 MG in NA CHLORIDE 0.9% 1,000 ML IV SCH (08:29)
[2018-11-10] MEDS: NA CHLORIDE 0.9% 1,000 ML IV SCH ×3 (09:13→22:33)
[2018-11-10 13:34] LABS: BUN Blood Urea Nitrogen 11 mg/dL (7-18); Bicarbonate 27 mmol/L (21-32); Glucose Level 131 mg/dL (74-106); Potassium 3.8 mmol/L (3.5-5.1); Sodium Level 143 mmol/L (136-145)
--- NOTE | 2018-11-10 17:31 | PN ---
Date of Progress Note: 11/10/2018 Subjective: Patient is seen and examined. Chart reviewed and case discussed with RN. The patient h ad significant agitation yesterday requiring Haldol IM, had pulled out IVs. Medications list reviewe d. Objective: Vital Signs: Temperature 97.2, heart rate 59, blood pressure 134/68, respirations 16, O2 93% on room air. General: Awake, alert, oriented to self, not in any acute distress, elderly male. CV: S1, S2. No murmurs. Respiratory: Moving air well bilaterally. No wheezing. Gastrointestinal: Abdomen is soft, nontender, nondistended. Positive bowel sounds. Extremities: No clubbing, cyanosis, or edema. Neurologic: Nonfocal. Laboratory Data: Pending. Assessment: A 68-year-old male with: 1.Acute delirium with agitation, likely related to alcohol withdrawal. The patient received Haldol IM. We will try to minimize Haldol, use can use p.r.n. IV or IM with Benadryl. 2.Status post fall. Continue with PT and OT. 3.Acute metabolic encephalopathy, improved. Back to baseline of orientation x1. 4.Hypokalemia, replaced. 5.Hypomagnesemia. We will continue to monitor. Improved. 6.Deep vein thrombosis prophylaxis with Lovenox. Plan: Continue IV fluids, banana bag, pending placement to a intermediate facility. /MARLENA Voice ID: [id number] Report ID: [id number]
[2018-11-11 06:36] LABS: Absolute Lymphocytes (CBC) 1.3 K/uL (0.7-4.9); Basophils % 0.5 % (0-1.3); Eosinophils % 3.1 % (0-4.4); Hematocrit 37.2 % (39.6-49.0); Lymphocytes % 19.6 % (15.3-44.8); MPV 7.9 fL (7.6-11.3); Monocytes % 10.3 % (3.3-12.3); RBC Red Blood Cell Count 4.09 M/uL (4.33-5.43)
[2018-11-11 06:43] LABS: BUN Blood Urea Nitrogen 13 mg/dL (7-18); Bicarbonate 28 mmol/L (21-32); Glucose Level 117 mg/dL (74-106); Potassium 3.8 mmol/L (3.5-5.1); Sodium Level 143 mmol/L (136-145)
[2018-11-11] MEDS: ENOXAPARIN 40 MG/0.4 ML SQ SCH (08:04)
[2018-11-11] MEDS ORDERED: POTASSIUM CL SA 10 MEQ TAB PO ONE (09:00)
[2018-11-11] MEDS: FOLIC ACID 1 MG, MULTIVITAMINS INJ 10 ML, THIAMINE HCL 100 MG in NA CHLORIDE 0.9% 1,000 ML IV SCH (09:48)
[2018-11-11] MEDS: NA CHLORIDE 0.9% 1,000 ML IV SCH (11:53)
[2018-11-11] MEDS: LORazepam 2 MG/ML VIAL IV PRN ×2 (15:30→21:55)
--- NOTE | 2018-11-11 19:29 | PN ---
Date of Progress Note: 11/11/2018 Subjective: Patient seen and examined. Chart reviewed and case discussed with RN. Patient has not had any further episodes of agitation. Medications: List reviewed. Physical Examination: Vital Signs: Temperature 97.4, heart rate 71, blood pressure 114/65, respirations 18, O2 of 94% on r oom air. General: Awake, alert, oriented x1, not in any acute distress, elderly male. CV: S1, S2. Regular rate and rhythm. Peripheral pulses present respiratory moving air well bilater ally. No wheezing. Gastrointestinal: Abdomen is soft, nontender, nondistended. Positive bowel sounds. Extremities: No clubbing, cyanosis, or edema. Neurologic: Nonfocal. Laboratory Data: Sodium 143, potassium 3.8 chloride 109 CO2 of 28, BUN 13, creatinine 0.72, glucose 117, calcium 8.8. WBC 6.7, H and H 12.4 and 37.2, platelets 206. Assessment: A 68-year-old male with: 1.Acute delirium with agitation, improved, likely related to alcohol withdrawal. No further episode s. 2.Status post fall. Patient ambulating with PT. Continue working with OT as well. 3.Acute metabolic encephalopathy, improving. Patient now back to baseline. 4.Hypokalemia, replace. 5.Hypomagnesemia. We will replace and replace and continue to monitor levels. 6.Deep venous thrombosis prophylaxis with Lovenox. 7.Acute alcohol intoxication. We will continue to watch for signs of withdrawal with using CIWA pro tocol. Continue with multivitamins. Plan: is to [facility] to [facility] once accepted as the patient is unable to be disch arged home safely. Sister at this time states that she is no longer able to care for him. SA/MODL Voice ID: [id number] Report ID: [id number]
[2018-11-12] MEDS: NA CHLORIDE 0.9% 1,000 ML IV SCH (00:03)
[2018-11-12] MEDS: HYDRALAZINE HCL 20 MG/ML VIAL IV PRN (00:11)
[2018-11-12 06:07] LABS: BUN Blood Urea Nitrogen 15 mg/dL (7-18); Bicarbonate 31 mmol/L (21-32); Glucose Level 84 mg/dL (74-106); Potassium 4.1 mmol/L (3.5-5.1); Sodium Level 144 mmol/L (136-145)
[2018-11-12] MEDS: ENOXAPARIN 40 MG/0.4 ML SQ SCH (08:44)
[2018-11-12 09:19] VITALS: O2SAT 98
[2018-11-12] MEDS: FOLIC ACID 1 MG, MULTIVITAMINS INJ 10 ML, THIAMINE HCL 100 MG in NA CHLORIDE 0.9% 1,000 ML IV SCH (09:56)
--- NOTE | 2018-11-12 15:51 | P.PN ---
Subjective Date of Service: 11/12/18 Chief Complaint: syncope Patient seen and examined at bedside. No family at bedside. Chart reviewed and case discussed with nursing staff. Patient with no further episodes of agitation. No acute events noted overnight. No concerns or complaints this morning. Review of Systems 10-point ROS is otherwise unremarkable Physical Examination - Vital Signs Temperature: 97.4 F Blood Pressure: 92/55 Pulse: 78 Respirations: 17 Pulse Ox (%): 97 - Physical Exam General: Alert, In no apparent distress, Oriented x1 HEENT: Atraumatic, PERRLA, EOMI Neck: Supple, JVD not distended Respiratory: Clear to auscultation bilaterally, Normal air movement Cardiovascular: Regular rate/rhythm, Normal S1 S2 Gastrointestinal: Normal bowel sounds, No tenderness Musculoskeletal: No tenderness Integumentary: No rashes Neurological: Normal speech, Normal tone, Normal affect Lymphatics: No axilla or inguinal lymphadenopathy Assessment And Plan - Plan A 68-year-old male with: Acute delirium with agitation, improved, likely related to alcohol withdrawal. No further episodes. Status post fall. Patient ambulating with PT. Continue working with OT as well. Acute metabolic encephalopathy, improving. Patient now back to baseline. Hypokalemia, replace and monitor. Hypomagnesemia. We will replace and replace and continue to monitor levels. Deep venous thrombosis prophylaxis with Lovenox. Acute alcohol intoxication. We will continue to watch for signs of withdrawal with using CIWA protocol. Continue with multivitamins. Will be discharged on Librium Plan: is to discharge to custodial facility [facility] once accepted, likely tomorrow, as the patient is unable to be discharged home safely. Sister at this time states that she is no longer able to care for him. Discharge Plan: [facility] Plan to discharge in: 24 Hours
[2018-11-13] MEDS: NA CHLORIDE 0.9% 1,000 ML IV SCH ×2 (03:04)
[2018-11-13] MEDS: ENOXAPARIN 40 MG/0.4 ML SQ SCH (09:40)
[2018-11-13] MEDS: FOLIC ACID 1 MG, MULTIVITAMINS INJ 10 ML, THIAMINE HCL 100 MG in NA CHLORIDE 0.9% 1,000 ML IV SCH (09:40)
[2018-11-13 11:59] VITALS: BP 138/76
[2018-11-13 12:03] VITALS: TEMP 97.8
--- NOTE | 2018-11-13 16:21 | P.DS ---
Admission Date: 11/08/18 Discharge Date: 11/13/18 Disposition: TRANSFER TO [facility]IOR [facility]IVING Discharge Condition: FAIR Reason for Admission: syncope Brief History of Present Illness: Mr Reis is a 68 years old male with history of alcohol abuse, HTN, seizure disorder, who had a fall while he was on the toilet. Family member called 911 because the patient was stuck between the wall and the toilete, unable to stand up. At my encounter the patient was very confused, unable to provide history. alcohol level was 5. No reported chest pain, SOB or palpitation, per EMS records , prior the fall. CT head remarkable for significant atrophy, no obvious intracranial bleeding, awaiting radiology report. Lab work shows WBC 12.1K, he was tachycardic 116 bpm, BP 117/88, afebrile, O2 sat 92% on RA. EKG shows normal SR at 100 bpm, incomplete RBBB, no ST abnormalities, T wave inverion on anterior leads (not new). Hospital Course: Patient was admitted for a fall, likely secondary to alcohol. He was noted to be confused, tachycardic on admission. He was provided with IV fluids, banana bag and supportive care. Physical therapy and occupational therapy were consulted. His metabolic encephalopathy did improve, r returned to baseline. His stay was complicated by episodes of agitation, possibly related to alcohol withdrawal, treated with Haldol and Benadryl. His mentation returned to baseline, after such interventions. Prior to discharge, he was back to baseline mentation lopez, not agitated. He was alert and able to hold a conversation. He was then discharged to [facility] once he was accepted in a safe and stable manner. Vital Signs/Physical Exam: Temp Pulse Resp BP Pulse Ox 97.8 F 69 20 138/76 98 11/13/18 12:00 11/13/18 12:00 11/13/18 12:00 11/13/18 12:00 11/13/18 12:00 General: Alert, In no apparent distress HEENT: Atraumatic, PERRLA, EOMI Neck: Supple, JVD not distended Respiratory: Clear to auscultation bilaterally, Normal air movement Cardiovascular: Regular rate/rhythm, Normal S1 S2 Gastrointestinal: Normal bowel sounds, No tenderness Musculoskeletal: No tenderness Integumentary: No rashes Neurological: Normal speech, Normal tone, Normal affect Lymphatics: No axilla or inguinal lymphadenopathy Laboratory Data at Discharge: WBC 6.7 K/uL (4.3-10.9) D 11/11/18 06:17 Hgb 12.4 g/dL (13.6-17.9) L 11/11/18 06:17 Hct 37.2 % (39.6-49.0) L 11/11/18 06:17 Plt Count 206 K/uL (152-406) 11/11/18 06:17 PT 12.1 SECONDS (9.5-12.5) 11/06/18 21:26 INR 1.03 11/06/18 21:26 APTT 26.4 SECONDS (24.3-36.9) 11/06/18 21:26 Sodium 144 mmol/L (136-145) 11/12/18 05:24 Potassium 4.1 mmol/L (3.5-5.1) 11/12/18 05:24 BUN 15 mg/dL (7-18) 11/12/18 05:24 Creatinine 0.74 mg/dL (0.55-1.3) 11/12/18 05:24 Glucose 84 mg/dL (74-106) 11/12/18 05:24 Magnesium 2.5 mg/dL (1.8-2.4) H 11/08/18 05:14 Total Bilirubin 0.4 mg/dL (0.2-1.0) 11/08/18 05:14 AST 12 U/L (15-37) L 11/08/18 05:14 ALT 24 U/L (12-78) 11/08/18 05:14 Alkaline Phosphatase 42 U/L (45-117) L 11/08/18 05:14 Home Medications: LORazepam [Ativan*] 1 mg PO BID 11/07/18 traMADol HCL [Ultram*] 50 mg PO BID 11/07/18 chlordiazePOXIDE HCl [Librium] 25 mg PO Q6HP PRN #40 cap 11/13/18 New Medications: chlordiazePOXIDE HCl [Librium] 25 mg PO Q6HP PRN #40 cap PRN Reason: Agitation Diet: AHA Activity: Fall precautions Time spent managing pt's care (in minutes): 55
== END 2018-11-13 13:10 | DRG 896 ==
LOC: ER 20:33 → ERHOLD 23:26 → 4TH 11-07 00:14 → OBSVTOIN 11-08 14:50
PROVIDERS: ADMIT Internal Medicine; ATTEND Family Medicine
DX: F10.231 Alcohol dependence with withdrawal delirium (principal); G93.41 Metabolic encephalopathy; G40.919 Epilepsy, unspecified, intractable, without status epilepticus; Y90.2 Blood alcohol level of 40-59 mg/100 ml; I10 Essential (primary) hypertension; Z91.81 History of falling; E66.3 Overweight; Z68.25 Body mass index [BMI] 25.0-25.9, adult; E87.6 Hypokalemia; E83.41 Hypermagnesemia
CPT/HCPCS: 36415; 70450; 70553; 80048; 80053; 80076; 80307; 80320; 80329; 81003; 82140; 83735; 84132; 84484; 85025; 85379; 85610; 85730; 93005; 93970; 96365; 96366; 97116; 97163; 97166; 97530; 99285; A9577; G0378; J0360; J1630; J1650; J3411; J7030

== ENCOUNTER 2019-05-03 20:40 | Inpatient (IN) | payer OTHER ==
[2019-05-03] MEDS ORDERED: NA CHLORIDE 0.9% 2,000 ML ONE (21:10)
[2019-05-03] MEDS ORDERED: NA CHLORIDE 0.9% 500 ML ONE (21:10)
[2019-05-03 21:34] LABS: Urine Bacteria NONE SEEN /HPF (NONE SEEN); Urine Culture Reflex Order NOT NEEDED; Urine RBC <5 /HPF (NONE SEEN)
[2019-05-03] MEDS ORDERED: HALOPERIDOL LACT 5 MG/ML INJ ONE (21:34)
[2019-05-03 21:38] LABS: Absolute Lymphocytes (CBC) 0.6 K/uL (0.7-4.9); Basophils % 0.1 % (0-1.3); Hematocrit 37.2 % (39.6-49.0); Lymphocytes % 5.5 % (15.3-44.8); MPV 7.6 fL (7.6-11.3); RBC Red Blood Cell Count 4.31 M/uL (4.33-5.43)
[2019-05-03] MEDS ORDERED: ACETAMINOPHEN 650MG/RECT SUPP PR ONE (21:43)
[2019-05-03 21:45] LABS: Protime INR 1.04
[2019-05-03 21:53] LABS: ALT/SGPT 30 U/L (12-78); AST/SGOT 19 U/L (15-37); Alkaline Phosphatase 48 U/L (45-117); BUN Blood Urea Nitrogen 24 mg/dL (7-18); Bicarbonate 29 mmol/L (21-32); Bilirubin Direct 0.2 mg/dL (0-0.2); Bilirubin Total 0.5 mg/dL (0.2-1.0); CKMB Creatine Kinase MB < 1.0 ng/mL (0.3-3.6); Creatine Phosphokinase 137 U/L (39-308); Glucose Level 105 mg/dL (74-106); Lipase 48 U/L (73-393); Potassium 3.8 mmol/L (3.5-5.1); Sodium Level 139 mmol/L (136-145); Troponin (Emerg Dept Use Only) < 0.02 ng/mL (0.0-0.045)
[2019-05-03 21:57] LABS: Urine Blood 1+ (NEG); Urine Glucose NEGATIVE (NEG); Urine Protein NEGATIVE (NEG)
[2019-05-03] MEDS ORDERED: DIPHENHYDRAMINE 50 MG/ML VIAL ONE (22:12)
[2019-05-03] MEDS ORDERED: CEFTRIAXONE/SWI 1gm 1 GM/10 ML SYR ONE (22:12)
[2019-05-03] MEDS ORDERED: AZITHROMYCIN 500 MG INJ IVPB ONE (22:12)
[2019-05-03] MEDS ORDERED: NA CHLORIDE 0.9% 250 ML ONE (22:12)
[2019-05-03 22:17] LABS: Blood Morphology Comment NOT SEEN (NOT SEEN); Platelet Estimate ADEQ
[2019-05-04] MEDS ORDERED: ACETAMINOPHEN 500 MG TAB PO PRN (00:56)
[2019-05-04] MEDS ORDERED: MORPHINE 4 MG/ML SYR IV PRN (00:56)
[2019-05-04] MEDS ORDERED: ONDANSETRON 4 MG/2 ML VIAL IV PRN (00:56)
--- NOTE | 2019-05-04 01:27 | ER ---
Nurse's Notes [facility] Name: Anette Reis Age: 69 yrs Sex: Male : 1950 Arrival Date: 05/03/2019 Time: 20:41 Bed 27 Private MD: Diagnosis: Altered mental status, unspecified Presentation: 05/03 20:45 Presenting complaint: EMS states: Pt from [facility]. "They said his ca1 baseline is 'confused and pleasantly agitated', but today he is been unpleasantly agitated and more confused". Pt has history of dementia. Transition of care: patient was received from another setting of care (long-term care facility), [facility]. Onset of symptoms was May 03, 2019. Risk Assessment: Do you want to hurt yourself or someone else? Patient reports no desire to harm self or others. Initial Sepsis Screen: Does the patient meet any 2 criteria? No. Patient's initial sepsis screen is negative. Does the patient have a suspected source of infection? No. Patient's initial sepsis screen is negative. Care prior to arrival: None. 20:45 Method Of Arrival: EMS: [facility] ca1 20:45 Acuity: RICO 2 ca1 Historical: - Allergies: 20:55 NKDA; ca1 - Home Meds: 23:37 lorazepam 1 mg Oral tab 1 tab [Active]; tramadol 50 mg Oral tab 1 tab twice a day as mg2 needed [Active]; - PMHx: 20:55 Anxiety; Seizures; tinnitus; ca1 - Immunization history:: Adult Immunizations up to date. - Social history:: Smoking status: unknown. - Ebola Screening: : No symptoms or risks identified at this time. Screenin:00 Abuse screen: Denies threats or abuse. Denies injuries from another. Nutritional ca1 screening: No deficits noted. Tuberculosis screening: No symptoms or risk factors identified. Fall Risk Secondary diagnosis (15 points) dementia, IV access (20 points). Gait- Impaired (20 pts.). Mental Status- Overestimates/Forgets Limitations (15 pts.). Total Anand Fall Scale indicates High Risk Score (45 or more points). Fall prevention measures have been instituted. Side Rails Up X 2 Placed Close to Nursing Station Frequent Obs/Assessments Occuring. Assessment: 21:00 General: Appears in no apparent distress. uncomfortable, ill, Behavior is agitated, ca1 combative, eyes closed. Pain: Unable to use pain scale. Patient appears agitated, confused, to be moaning. Neuro: Level of Consciousness is confused. Cardiovascular: Heart tones S1 S2 present Capillary refill < 3 seconds Patient's skin is warm and dry. Rhythm is sinus rhythm. Respiratory: Airway is patent Respiratory effort is even, unlabored, Breath sounds are clear bilaterally. GI: Abdomen is round non-distended, Bowel sounds present X 4 quads. Abd is soft and non tender X 4 quads. Derm: Skin is intact, is healthy with good turgor, Skin is pink, warm \\T\\ dry. Musculoskeletal: Circulation, motion, and sensation intact. Capillary refill < 3 seconds. 21:26 Reassessment: pt combative, attempts to get out of bed and pulls IV and Arguello. Notified ca1 provider. 21:28 Reassessment: Dr. Kenney at bedside. VO soft restraints, Haldol 2.5mg IV x 2. ca1 22:00 Reassessment: Patient appears in no apparent distress at this time. No changes from ca1 previously documented assessment. Pt still on restraints on both wrists. 22:00 Musculoskeletal: Circulation, motion, and sensation intact. Capillary refill < 3 ca1 seconds. 22:00 Derm: Skin is intact, is healthy with good turgor, Skin is pink, warm \\T\\ dry. ca1 22:15 Reassessment: Sister at bedside. Report given to ÁLVARO Bear. ca1 22:38 Reassessment: PT to CT. ca1 23:20 Reassessment: Patient appears in no apparent distress at this time. at the [facility] bedside. patient still restless. restraintx2 in both wrists. Vital Signs: 20:55 BP 132 / 106; Pulse 92; Resp 19 S; Temp 99.4(A); Pulse Ox 94% on R/A; Weight 81.65 kg ca1 (R); Height 5 ft. 10 in. (177.80 cm) (R); 21:00 Temp 102.5(A); ca1 22:00 BP 104 / 91; Pulse 95; Resp 20; Temp 102.9(A); Pulse Ox 100% on R/A; ca1 23:35 Pulse 83; Resp 18; Temp 99.8(A); Pulse Ox 100% on 3 lpm NC; mg2 05/04 00:01 BP 119 / 58; mg2 01:35 BP 124 / 74; Pulse 109; Resp 29; Pulse Ox 98% on R/A; dm5 01:38 Temp 100.3(A); dm5 05/03 20:55 Body Mass Index 25.83 (81.65 kg, 177.80 cm) ca1 01:35 pt agitated and moving in bed dm5 ED Course: 05/03 20:41 Patient arrived in ED. ds1 20:53 Chinyere Ryan, RN is Primary Nurse. ca1 20:55 Triage completed. ca1 20:55 Arm band placed on right wrist. ca1 21:00 Patient has correct armband on for positive identification. Placed in gown. Bed in low ca1 position. Call light in reach. Side rails up X2. Seizure precautions initiated. assistant front office manager on. Pulse ox on. NIBP on. 21:05 Missed attempt(s): 22 gauge in right forearm. Bleeding controlled, band aid applied, ca1 catheter tip intact. 21:05 Arguello cath inserted, using sterile technique, 16 Fr., by collection manager, balloon inflated, to ca1 gravity drainage, urine specimen collected. returned clear yellow urine. Patient tolerated well. 21:19 Yuan Kenney MD is Attending Physician. ps1 21:44 Chest Single View XRAY In Process Unspecified. EDMS 21:45 No provider procedures requiring assistance completed. Inserted saline lock: 20 gauge ca1 in right hand, using aseptic technique. ,using aseptic technique. by ÁLVARO Bear. 22:55 CT completed. Patient tolerated procedure well. Patient moved back from CT. mw3 22:55 CT Head Brain wo Cont In Process Unspecified. EDMS 05/04 01:11 Kenneth Irvin MD is Hospitalizing Provider. ps1 02:36 Primary Nurse role handed off by Chinyere Ryan, ÁLVARO dm5 02:36 Marga Sultana, ÁLVARO is Primary Nurse. dm5 22:54 Patient admitted, IV remains in place. dm5 Administered Medications: 05/03 21:27 Drug: NS 0.9% (30 ml/kg) 30 ml/kg Route: IV; Rate: bolus; Site: right hand; ca1 21:38 Drug: HALdol 2.5 mg Route: IVP; Site: right hand; ca1 05/04 00:02 Follow up: Response: No adverse reaction mg2 05/03 21:42 Drug: Tylenol Suppository 650 mg Route: [place]; ca1 05/04 00:02 Follow up: Response: No adverse reaction mg2 05/03 21:50 Drug: HALdol 2.5 mg Route: IVP; Site: right hand; ca1 05/04 00:02 Follow up: Response: No adverse reaction mg2 05/03 22:23 Drug: Benadryl 50 mg Route: IVP; Site: right hand; ca1 05/04 00:01 Follow up: Response: No adverse reaction mg2 05/03 22:24 Drug: Rocephin 1 grams Route: IV; Rate: bolus; Site: right hand; ca1 23:32 Follow up: Response: No adverse reaction; IV Status: Completed infusion mg2 22:37 Drug: AZITHromycin 500 mg Route: IVPB; Infused Over: 1 hrs; Site: right hand; ca1 Outcome: 05/04 01:11 Decision to Hospitalize by Provider. ps1 02:36 Patient left the ED. dm5 02:36 Admitted to Tele accompanied by nurse, via stretcher, room 402, with chart. dm5 02:36 Condition: stable 02:36 Discharge instructions given to family, Instructed on the need for admit. Signatures: Dispatcher [employer] EDMarga Bates, RN RN dm5 Archana Maritn ds1 Yuan Kenney MD MD ps1 Karan Hopkins RN RN mg2 Marianela Harvey mw3 Chinyere Ryan RN RN ca1 Corrections: (The following items were deleted from the chart) 05/03 21:00 20:55 BP 132 / 106; Pulse 92bpm; Resp 19bpm; Spontaneous; Pulse Ox 94% RA; Temp 99.4F ca1 Oral; ca1 21: 20:55 BP 132 / 106; Pulse 92bpm; Resp 19bpm; Spontaneous; Pulse Ox 94% RA; Temp 99.4F ca1 Axillary; ca1 21:30 21:28 Reassessment: Dr. Kenney at bedside. VO soft restraints, Haldol 2.5mg x 2 ca1 ca1 05/04 11:28 05/03 22:00 Reassessment: Patient appears in no apparent distress at this time. No ca1 changes from previously documented assessment. ca1 01/05 11:32 01/04 22:15 Reassessment: Sister at bedside ca1 ca1
--- NOTE | 2019-05-04 01:33 | EDPHYS ---
Physician Documentation [facility] Name: Anette Reis Age: 69 yrs Sex: Male : 1950 Arrival Date: 05/03/2019 Time: 20:41 Bed 27 Private MD: ED Physician Yuan Kenney HPI: 05/03 22:01 This 69 yrs old Male presents to ER via EMS with complaints of Altered Mental ps1 Status. 22:01 Patient BIBEMS altered and combative from DC. Not providing history. Has a fever. No ps1 respiratory distress. Responds to pain. Airway intact. Hx of seizure. . Historical: - Allergies: 20:55 NKDA; ca1 - Home Meds: 23:37 lorazepam 1 mg Oral tab 1 tab [Active]; tramadol 50 mg Oral tab 1 tab twice a day as mg2 needed [Active]; - PMHx: 20:55 Anxiety; Seizures; tinnitus; ca1 - Immunization history:: Adult Immunizations up to date. - Social history:: Smoking status: unknown. - Ebola Screening: : No symptoms or risks identified at this time. ROS: 22:01 Unable to obtain ROS due to altered mental status. ps1 Exam: 22:01 Head/Face: Normocephalic, atraumatic. Eyes: Pupils equal round and reactive to light, ps1 extra-ocular motions intact. Lids and lashes normal. Conjunctiva and sclera are non-icteric and not injected. Chest/axilla: Normal chest wall appearance and motion. Nontender with no deformity. No lesions are appreciated. Cardiovascular: Regular rate and rhythm. No gallops, murmurs, or rubs. Normal PMI, no JVD. No pulse deficits. Respiratory: Lungs have equal breath sounds bilaterally, clear to auscultation and percussion. No rales, rhonchi or wheezes noted. No increased work of breathing, no retractions or nasal flaring. Abdomen/GI: Soft, non-tender, with normal bowel sounds. No distension or tympany. No guarding or rebound. No evidence of tenderness throughout. MS/ Extremity: Pulses equal, no cyanosis. Neurovascular intact. Full, normal range of motion. 22:01 Constitutional: The patient appears alert, agitated, restless. 22:01 Neuro: Orientation: Not oriented to person, place, time, situation, Mentation: confused, responsive to pain. Vital Signs: 20:55 BP 132 / 106; Pulse 92; Resp 19 S; Temp 99.4(A); Pulse Ox 94% on R/A; Weight 81.65 kg ca1 (R); Height 5 ft. 10 in. (177.80 cm) (R); 21:00 Temp 102.5(A); ca1 22:00 BP 104 / 91; Pulse 95; Resp 20; Temp 102.9(A); Pulse Ox 100% on R/A; ca1 23:35 Pulse 83; Resp 18; Temp 99.8(A); Pulse Ox 100% on 3 lpm NC; mg2 05/04 00:01 BP 119 / 58; mg2 01:35 BP 124 / 74; Pulse 109; Resp 29; Pulse Ox 98% on R/A; dm5 01:38 Temp 100.3(A); dm5 05/03 20:55 Body Mass Index 25.83 (81.65 kg, 177.80 cm) ca1 01:35 pt agitated and moving in bed dm5 MDM: 05/03 23:56 Patient medically screened. ps1 05/03 21:01 Order name: Basic Metabolic Panel; Complete Time: 21:59 ca1 05/03 21:01 Order name: Blood Culture Adult (2) ca1 05/03 21:01 Order name: CBC with Diff; Complete Time: 23:54 ca1 05/03 21:01 Order name: Ckmb; Complete Time: 21:59 ca1 05/03 21:01 Order name: CPK; Complete Time: 21:59 ca1 05/03 21:01 Order name: Lactate; Complete Time: 21:59 ca1 05/03 21:01 Order name: LFT's; Complete Time: 21:59 ca1 05/03 21:01 Order name: Lipase; Complete Time: 21:59 ca1 05/03 21:01 Order name: Procalcitonin; Complete Time: 22:09 ca1 05/03 21:01 Order name: Protime (+inr); Complete Time: 21:59 ca1 05/03 21:01 Order name: Ptt, Activated; Complete Time: 21:59 ca1 05/03 21:01 Order name: Troponin (emerg Dept Use Only); Complete Time: 21:59 ca1 05/03 21:01 Order name: Urine Microscopic Only; Complete Time: 21:59 ca1 05/03 21:04 Order name: Glucose, Ancillary Testing; Complete Time: 21:59 EDMS 05/03 21:01 Order name: Chest Single View XRAY ca1 05/03 21:01 Order name: Accucheck; Complete Time: 21:02 ca1 05/03 21:32 Order name: Urine Dipstick--Ancillary (enter results); Complete Time: 21:59 cm6 05/03 21:40 Order name: Manual Differential; Complete Time: 23:54 EDMS 05/03 22:11 Order name: CT Head Brain wo Cont ps1 05/03 22:15 Order name: Flu; Complete Time: 23:54 lt1 05/03 22:17 Order name: Strep; Complete Time: 23:54 lt1 05/03 22:58 Order name: Throat Culture EDMS 05/04 00:58 Order name: Lactate Sepsis 2 HR Follow-up; Complete Time: 01:38 EDMS 05/03 21:01 Order name: Cardiac monitoring; Complete Time: 21:28 ca1 05/03 21:01 Order name: EKG - Nurse/Tech; Complete Time: 22:01 ca1 05/03 21:01 Order name: IV Saline Lock - Large Bore; Complete Time: 21:02 ca1 05/03 21:01 Order name: Labs collected and sent; Complete Time: 21:02 ca1 05/03 21:01 Order name: O2 Per Protocol; Complete Time: 21:02 ca1 05/03 21:01 Order name: O2 Sat Monitoring; Complete Time: 21:02 ca1 05/03 21:01 Order name: Urine Dipstick-Ancillary (obtain specimen); Complete Time: 21:28 ca1 Administered Medications: 21:27 Drug: NS 0.9% (30 ml/kg) 30 ml/kg Route: IV; Rate: bolus; Site: right hand; ca1 21:38 Drug: HALdol 2.5 mg Route: IVP; Site: right hand; ca1 05/04 00:02 Follow up: Response: No adverse reaction mg2 05/03 21:42 Drug: Tylenol Suppository 650 mg Route: NC; ca1 05/04 00:02 Follow up: Response: No adverse reaction mg2 05/03 21:50 Drug: HALdol 2.5 mg Route: IVP; Site: right hand; ca1 05/04 00:02 Follow up: Response: No adverse reaction mg2 05/03 22:23 Drug: Benadryl 50 mg Route: IVP; Site: right hand; ca1 05/04 00:01 Follow up: Response: No adverse reaction mg2 05/03 22:24 Drug: Rocephin 1 grams Route: IV; Rate: bolus; Site: right hand; ca1 23:32 Follow up: Response: No adverse reaction; IV Status: Completed infusion mg2 22:37 Drug: AZITHromycin 500 mg Route: IVPB; Infused Over: 1 hrs; Site: right hand; ca1 Disposition: 05/04/19 01:11 Hospitalization ordered by Kenneth Irvin for Inpatient Admission. Preliminary diagnosis is Altered mental status, unspecified. - Bed requested for Telemetry/MedSurg (Inpatient). - Status is Inpatient Admission. dm5 - Condition is Fair. - Problem is new. - Symptoms have improved. UTI on Admission? No Signatures: Dispatcher [employer] EDNE Marga Sultana RN RN dm5 Yuan Kenney MD MD ps1 Karan Hopkins RN RN mg2 Chinyere Ryan RN RN ca1 Corrections: (The following items were deleted from the chart) 05/04 01: 01:11 Hospitalization Ordered by Kenneth Irvin MD for Inpatient Admission. Preliminary dm5 diagnosis is Altered mental status, unspecified. Bed requested for Telemetry/MedSurg (Inpatient). Status is Inpatient Admission. Condition is Fair. Problem is new. Symptoms have improved. UTI on Admission? No. ps1 01:55 01:34 05/04/2019 01:11 Hospitalization Ordered by Kenneth Irvin MD for Inpatient dm5 Admission. Preliminary diagnosis is Altered mental status, unspecified. Bed requested for Telemetry/MedSurg (Inpatient). Status is Inpatient Admission. Condition is Fair. Problem is new. Symptoms have improved. UTI on Admission? No. dm5 02:36 01:55 05/04/2019 01:11 Hospitalization Ordered by Kenneth Irvin MD for Inpatient dm5 Admission. Preliminary diagnosis is Altered mental status, unspecified. Bed requested for Telemetry/MedSurg (Inpatient). Status is Inpatient Admission. Condition is Fair. Problem is new. Symptoms have improved. UTI on Admission? No. dm5
[2019-05-04] MEDS: NA CHLORIDE 0.9% 1,000 ML IV SCH ×3 (02:56→21:08)
[2019-05-04 09:21] LABS: Barbiturates NEGATIVE (NEGATIVE); Benzodiazepines NEGATIVE (NEGATIVE); Cocaine NEGATIVE (NEGATIVE); METHAMPHETAM NEGATIVE (NEGATIVE); Methadone NEGATIVE (NEGATIVE); Opiates NEGATIVE (NEGATIVE); Phencyclidine NEGATIVE (NEGATIVE); THC Cannibis NEGATIVE (NEGATIVE)
[2019-05-04] MEDS ORDERED: DOCUSATE NA 100 MG CAP PO PRN (10:35)
[2019-05-04] MEDS ORDERED: TRAMADOL HCL 50 MG TAB PO PRN (10:35)
--- NOTE | 2019-05-04 11:29 | RAD REPORT ---
EXAM DESCRIPTION: RAD - Chest Single View - 05/03/2019 9:44 pm CLINICAL HISTORY: AMS Chest pain. COMPARISON: CHEST SINGLE VIEW dated 01/19/2014 FINDINGS: Portable technique limits examination quality. The lungs are underinflated resulting vascular crowding. No focal infiltrate evident. The heart is no rmal in size. No displaced fractures.
[2019-05-04] MEDS: DIVALPROEX DR 500MG TAB PO SCH ×2 (12:10→21:09)
--- NOTE | 2019-05-04 12:48 | EKG ---
Test Date: 2019-05-03 Test Time: 22:02:45 [place] Operator: CASEY MEASUREMENT RESULTS: Intervals: Rate: 94 CA: 174 QRSD: 88 QT: 358 QTc: 447 [place]: P: 31 CA: 174 QRS: -46 T: 5 INTERPRETIVE STATEMENTS: Normal sinus rhythm Left axis deviation Cannot rule out Anterior infarct, age undetermined Abnormal ECG Compared to ECG 11/06/2018 21:35:51 Incomplete right bundle-branch block no longer present ST (T wave) deviation no longer present Possible ischemia no longer present Myocardial infarct finding still present Electronically Signed On 05-04-19 12:47:28 CONTENT STRATEGY LEAD by Caleb Silver
[2019-05-04] MEDS ORDERED: HALOPERIDOL LACT 5 MG/ML INJ IV ONE (13:00)
[2019-05-04] MEDS: LORAZEPAM 1 MG TABLET PO SCH ×2 (16:35→21:00)
[2019-05-04] MEDS: HOME MED 1 EA UNK (Fluticasone Propionate [Flonase Allergy Relief] 1 SPRAY) SCH (21:00)
[2019-05-04] MEDS: TRAZODONE 50 MG TABLET PO SCH (21:08)
[2019-05-04] MEDS: MELATONIN 3 MG TABLET PO SCH (21:08)
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
[2019-05-05] MEDS ORDERED: ACETAMINOPHEN 650MG/RECT SUPP PR PRN (01:21)
[2019-05-05] MEDS ORDERED: ACETAMINOPHEN 325 MG TABLET PO ONE (01:21)
[2019-05-05] MEDS ORDERED: VANCOMYCIN 1 GM/VIAL ONE (01:58)
[2019-05-05] MEDS ORDERED: NA CHLORIDE 0.9% 500 ML ONE (01:59)
[2019-05-05] MEDS ORDERED: VANCOMYCIN 2 GM in NA CHLORIDE 0.9% 500 ML IVPB ONE (02:00)
[2019-05-05] MEDS: Levofloxacin500mg IV 500 MG/100 ML BAG IV SCH (02:02)
[2019-05-05 04:14] LABS: Absolute Lymphocytes (CBC) 0.9 K/uL (0.7-4.9); Basophils % 0.2 % (0-1.3); Hematocrit 31.2 % (39.6-49.0); Lymphocytes % 17.7 % (15.3-44.8); Protime INR 1.09; RBC Red Blood Cell Count 3.58 M/uL (4.33-5.43)
[2019-05-05 04:28] LABS: ALT/SGPT 30 U/L (12-78); AST/SGOT 20 U/L (15-37); Albumin 2.3 g/dL (3.4-5.0); Alkaline Phosphatase 41 U/L (45-117); BUN Blood Urea Nitrogen 10 mg/dL (7-18); Bicarbonate 31 mmol/L (21-32); Bilirubin Total 0.3 mg/dL (0.2-1.0); Glucose Level 97 mg/dL (74-106); Potassium 3.7 mmol/L (3.5-5.1); Protein, Total 5.8 g/dL (6.4-8.2); Sodium Level 144 mmol/L (136-145)
[2019-05-05] MEDS: NA CHLORIDE 0.9% 1,000 ML IV SCH ×2 (05:28→20:39)
[2019-05-05] MEDS: DIVALPROEX DR 500MG TAB PO SCH ×3 (07:36→20:37)
[2019-05-05] MEDS: CETIRIZINE HCL 5 MG TABLET PO SCH (07:36)
[2019-05-05] MEDS: LORAZEPAM 1 MG TABLET PO SCH ×2 (07:36→20:37)
[2019-05-05] MEDS: ASCORBIC ACID 500 MG TABLET PO SCH (07:36)
[2019-05-05] MEDS: FOLIC ACID 1 MG TABLET PO SCH (07:36)
[2019-05-05] MEDS: HOME MED 1 EA UNK (Fluticasone Propionate [Flonase Allergy Relief] 1 SPRAY) SCH ×2 (07:37→20:39)
[2019-05-05] MEDS: SERTRALINE HCL 50 MG TAB PO SCH (07:37)
[2019-05-05] MEDS: TAMSULOSIN 0.4 MG SR CAP PO SCH (07:37)
[2019-05-05] MEDS ORDERED: HOME MED 1 EA UNK (Ascorbic Acid [Vitamin C] 1 TAB) PO SCH (09:00)
[2019-05-05] MEDS ORDERED: CEFTRIAXONE 2,000 MG in NA CHLORIDE 0.9% 100 ML IV SCH (09:00)
[2019-05-05] MEDS ORDERED: HOME MED 1 EA UNK (Cetirizine Hcl [Zyrtec] 1 TAB) PO SCH (09:00)
[2019-05-05] MEDS: CEFTRIAXONE/SWI 2gm 2 GM/20 ML SYR IV SCH ×2 (09:08→20:38)
--- NOTE | 2019-05-05 11:48 | RAD REPORT ---
EXAM DESCRIPTION: Head Brain Wo Cont CLINICAL HISTORY: 69-year-old male with confusion. COMPARISON: 11/06/2017. TECHNIQUE: CT brain without contrast. This exam was performed according to our departmental dose opt imization program which includes use of automated exposure control, adjustment of the mA and/or kV ac cording to patient size and/or use of iterative reconstruction technique. FINDINGS: Multifocal regions of patchy hypoattenuation are present in a subcortical and periventricu lar deep white matter distribution, nonspecific; however, most likely represent small vessel ischemic disease, age indeterminate. RIGHT frontotemporal gliosis and encephalomalacia compatible with sequel a of prior infarction, postoperative change or trauma. The ventricles, sulci, and cisterns are symmetric and unremarkable. The elias-white matter different iation is preserved. There is no mass effect, midline shift, intra- or extra-axial fluid collection /acute hemorrhage. The osseous structures again reveal multifocal calvarial defects compatible with craniectomy at the level of the bilateral temporal region. 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 The paranasal sinuses reveal mucosal thickening and mastoid air cells are clear. IMPRESSION: 1. No acute intracranial abnormalities. Nonspecific white matter change most likely sm all vessel ischemic disease, age indeterminate. 2. CT is insensitive for early evaluation of acute stroke. If there is clinical concern for acute ischemia, an MRI may be considered. 3. Stable ventriculomegaly. Electronically signed by: Brianna Luke MD 05/03/2019 11:21 PM FORENSIC PATHOLOGIST Due to temporary technical issues with the PACS/Fluency reporting system, reports are being signed by the in house radiologist as a courtesy to ensure prompt reporting. The interpreting radiologist is f ully responsible for the content of the report.
--- NOTE | 2019-05-05 12:29 | RAD REPORT ---
EXAM DESCRIPTION: RAD - Lumbar Puncture For Dx - 05/05/2019 12:16 pm CLINICAL HISTORY: AMS; fever Headache, fever COMPARISON: No comparisons TECHNIQUE: The procedure, risks and alternatives to the procedure were discussed with the patient in detail. After answering all questions, both oral and written consent were obtained. Time-out procedu re was performed. The patient was placed in an oblique prone position on the fluoroscopic table. The skin of the lower back was prepped and draped in the usual sterile fashion. After anesthetizing the skin and deeper sof t tissues with 1% lidocaine, a 22 gauge needle was advanced into the thecal sac at the L3-4 level. Due to significant patient motion during the procedure, only 3-4 mL of clear fluid could be obtained safely. At the conclusion of the procedure the needle was withdrawn and a sterile bandage placed over the pun cture site. Total fluoro time: 1 minutes Images obtained: 3 IMPRESSION: Successful fluoroscopic guided lumbar puncture. All obtained fluid was sent to the lab f or studies requested by the referring physician. The volume of CSF obtained was relatively limited du e to continuous patient motion during the procedure.
[2019-05-05 13:16] LABS: CSF Glucose 46 mg/dL (40-70)
[2019-05-05 13:36] LABS: Appearance CLEAR (CLEAR); Body Fluid Source CSF; Body Fluid WBC 0 /mm^3; Color of fluid Colorless (COLORLESS); Fluid Total Volume 3 ml
[2019-05-05 13:37] LABS: Appearance SLT. TURBID (CLEAR); Body Fluid Source CSF; Color of fluid Pink (COLORLESS)
[2019-05-05 13:38] LABS: Body Fluid WBC 0 /mm^3
[2019-05-05] MEDS: VANCOMYCIN 1.75 GM in NA CHLORIDE 0.9% 500 ML IVPB SCH (15:00)
--- NOTE | 2019-05-05 17:53 | P.PN ---
Subjective Date of Service: 05/05/19 Chief Complaint: Altered mental status Subjective: Improving Patient is feeling better today. No fevers at this time. Vitals have remained stable throughout the day. Patient currently alert and oriented to person place and time. Denies any complaints at this time. Has been able to tolerate food and fluids throughout the day. Patient had a lumbar puncture today with negative WBC. Cultures, stain, and VRDL was sent. Flu, strep, blood cultures, urine, chest all without acute bacterial findings. Abdomen is bowel remained soft and benign without acute pain. No skin infections noted. At this time it is not appear the patient has a systemic bacterial infection and or sepsis. If patient continues to do well throughout the night I believe patient would be able to go home tomorrow. Review of Systems General: Fever Eyes: Unremarkable ENT: Unremarkable Respiratory: Unremarkable Cardiovascular: Unremarkable Gastrointestinal: Unremarkable Genitourinary: Unremarkable Musculoskeletal: Unremarkable Integumentary: Unremarkable Neurological: Other (altered mentation) Lymphatics: Unremarkable Physical Examination - Vital Signs Temperature: 97.9 F Blood Pressure: 117/70 Pulse: 72 Respirations: 16 Pulse Ox (%): 93 - Physical Exam General: Alert, In no apparent distress, Oriented x3 HEENT: PERRLA, Mucous membr. moist/pink, EOMI Neck: Supple, 2+ carotid pulse no bruit, JVD not distended Respiratory: Clear to auscultation bilaterally, Normal air movement Cardiovascular: No edema, Normal pulses, Regular rate/rhythm, Normal S1 S2, No gallops, No rubs, No murmurs Capillary refill: <2 Seconds Gastrointestinal: Normal bowel sounds, Soft and benign, Non-distended, No ascites, No tenderness, No masses, No rebound, No guarding Musculoskeletal: No clubbing, No swelling, No contractures, No erythema, No tenderness, No warmth Integumentary: No rashes, No breakdown, No significant lesion, No tenderness/ swelling, No erythema, No warmth, No cyanosis Neurological: Normal speech, Normal strength at 5/5 x4 extr, Normal tone, Sensation intact, Cranial nerves 3-12 intact, Normal reflexes 2+, Normal affect Lymphatics: No axilla or inguinal lymphadenopathy - Studies Microbiology Data (last 24 hrs): 05/03/19 22:24 Throat Culture & Sensitivity - Final NORMAL UPPER RESPIRATORY ADALGISA GROWN. 05/03/19 20:55 Blood - Blood Aerobic Blood Culture - Final 05/03/19 20:55 Blood - Blood Gram Stain - Final 05/03/19 20:55 Blood - Blood Anaerobic Blood Culture - Final 05/03/19 21:15 Blood - Blood Anaerobic Blood Culture - Final Medications List Reviewed: Yes Assessment & Plan - Problems (Diagnosis) (1) YANELY (acute kidney injury) Current Visit: Yes Status: Acute (2) Altered mental status Current Visit: Yes Status: Acute Qualifiers: Altered mental status type: unspecified Qualified Code(s): R41.82 - Altered mental status, unspecified (3) Alzheimer's dementia Current Visit: Yes Status: Acute Qualifiers: Alzheimer's disease onset: late-onset Dementia behavioral disturbance: without behavioral disturbance Qualified Code(s): G30.1 - Alzheimer's disease with late onset; F02.80 - Dementia in other diseases classified elsewhere without behavioral disturbance (4) Fever Current Visit: Yes Status: Acute Qualifiers: Fever type: unspecified Qualified Code(s): R50.9 - Fever, unspecified Discharge Plan: Home Plan to discharge in: 24 Hours - Code Status/Comfort Care Code Status Assessed: Yes Critical Care: No Time Spent Managing Pts Care (In Minutes): 35
[2019-05-05] MEDS ORDERED: VANCOMYCIN 1.75 GM in NA CHLORIDE 0.9% 500 ML IVPB SCH (20:00)
[2019-05-05] MEDS: TRAZODONE 50 MG TABLET PO SCH (20:38)
[2019-05-05] MEDS: MELATONIN 3 MG TABLET PO SCH (20:38)
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
[2019-05-06] MEDS: Levofloxacin500mg IV 500 MG/100 ML BAG IV SCH (01:11)
[2019-05-06] MEDS: VANCOMYCIN 1.75 GM in NA CHLORIDE 0.9% 500 ML IVPB SCH (02:35)
[2019-05-06] MEDS: NA CHLORIDE 0.9% 1,000 ML IV SCH ×3 (03:00→20:31)
[2019-05-06] MEDS: DIVALPROEX DR 500MG TAB PO SCH ×2 (07:34→20:30)
[2019-05-06] MEDS: FOLIC ACID 1 MG TABLET PO SCH (07:34)
[2019-05-06] MEDS: SERTRALINE HCL 50 MG TAB PO SCH (07:34)
[2019-05-06] MEDS: CETIRIZINE HCL 5 MG TABLET PO SCH (07:34)
[2019-05-06] MEDS: ASCORBIC ACID 500 MG TABLET PO SCH (07:35)
[2019-05-06] MEDS: HOME MED 1 EA UNK (Fluticasone Propionate [Flonase Allergy Relief] 1 SPRAY) SCH ×2 (07:36→20:31)
[2019-05-06] MEDS: LORAZEPAM 1 MG TABLET PO SCH ×2 (07:39→20:30)
[2019-05-06] MEDS: TAMSULOSIN 0.4 MG SR CAP PO SCH (07:40)
[2019-05-06] MEDS: CEFTRIAXONE/SWI 2gm 2 GM/20 ML SYR IV SCH ×2 (09:18→20:29)
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
[2019-05-06] MEDS: TRAZODONE 50 MG TABLET PO SCH (20:30)
[2019-05-06] MEDS: MELATONIN 3 MG TABLET PO SCH (20:30)
[2019-05-07] MEDS: Levofloxacin500mg IV 500 MG/100 ML BAG IV SCH (01:32)
[2019-05-07 04:22] LABS: Basophils % 0.3 % (0-1.3); Hematocrit 33.6 % (39.6-49.0); Lymphocytes % 20.8 % (15.3-44.8); MPV 7.2 fL (7.6-11.3); RBC Red Blood Cell Count 3.86 M/uL (4.33-5.43)
[2019-05-07 04:35] LABS: ALT/SGPT 32 U/L (12-78); AST/SGOT 17 U/L (15-37); Albumin 2.4 g/dL (3.4-5.0); Alkaline Phosphatase 42 U/L (45-117); BUN Blood Urea Nitrogen 14 mg/dL (7-18); Bicarbonate 34 mmol/L (21-32); Bilirubin Total 0.3 mg/dL (0.2-1.0); Glucose Level 94 mg/dL (74-106); Potassium 3.8 mmol/L (3.5-5.1); Protein, Total 6.2 g/dL (6.4-8.2); Sodium Level 142 mmol/L (136-145)
[2019-05-07 05:12] VITALS: BMI 27.6
[2019-05-07] MEDS: NA CHLORIDE 0.9% 1,000 ML IV SCH (05:28)
[2019-05-07 08:26] VITALS: O2SAT 98
[2019-05-07] MEDS: LORAZEPAM 1 MG TABLET PO SCH (08:31)
[2019-05-07] MEDS: SERTRALINE HCL 50 MG TAB PO SCH (08:31)
[2019-05-07] MEDS: ASCORBIC ACID 500 MG TABLET PO SCH (08:31)
[2019-05-07] MEDS: CETIRIZINE HCL 5 MG TABLET PO SCH (08:31)
[2019-05-07] MEDS: HOME MED 1 EA UNK (Fluticasone Propionate [Flonase Allergy Relief] 1 SPRAY) SCH (08:32)
[2019-05-07] MEDS: TAMSULOSIN 0.4 MG SR CAP PO SCH (08:32)
[2019-05-07] MEDS: DIVALPROEX DR 500MG TAB PO SCH (08:32)
[2019-05-07] MEDS: FOLIC ACID 1 MG TABLET PO SCH (08:32)
[2019-05-07] MEDS: CEFTRIAXONE/SWI 2gm 2 GM/20 ML SYR IV SCH (08:32)
--- NOTE | 2019-05-07 14:41 | EEG ---
CHART: [id number] TEST ID#: [id number] DATE OF STUDY: 05/06/2019 THE EEG WAS RECORDED PORTABLE IN THE PATIENTS ROOM ON A 17 CHANNEL MACHINE. ELECTRODES WERE APPLIED IN THE USUAL MANNER USING THE INTERNATIONAL 10-20 SYSTEM. THE WAKING BACKGROUND RHYTHM IN THIS RECORD CONSISTS OF POORLY DEVELOPED AND POORLY ORGANIZED WAVES OF 6-7 HZ., IN A WIDE DISTRIBUTION WHICH DO NOT ATTENUATE NORMALLY WITH EYE OPENING. MODERATE VOLTAGE 1.5-3 HZ MIXED WITH 5-7 HZ ACTIVITY IS EXPRESSED DIFFUSELY. THERE ARE NO FOCAL OR LATERALIZING FEATURES. NO EPILEPTIFORM ACTIVITY APPEARS. SLEEP OCCURRED NATURALLY. IN ADDITION NORMAL SLEEP PATTERNS ARE PRESENT. HYPERVENTILATION WAS NOT PERFORMED. PHOTIC STIMULATION PRODUCED NO DRIVING BILATERALLY. IMPRESSION: THIS IS A MODERATELY ABNORMAL ROUTINE EEG DUE TO THE PRESENCE OF A DIFFUSELY SLOW BACKGROUND. THIS IS A NON-SPECIFIC FINDING INDICATING THE PRESENCE OF A MODERATE DIFFUSE DISTURBANCE IN CEREBRAL ACTIVITY.
[2019-05-07 16:32] VITALS: BP 156/84; TEMP 97.5
--- NOTE | 2019-05-08 01:21 | DS ---
Date of Discharge: 05/07/2019 Consultants: Dr. Turner with Neurology. Procedures: EEG shows metabolic encephalopathy, no seizure focus. Admitting Diagnoses: 1.Acute metabolic encephalopathy. 2.Fever. 3.Alzheimer's dementia. 4.Acute kidney injury. 5.Seizure disorder. Discharge Diagnoses: 1.Acute metabolic encephalopathy, resolving. 2.Acute kidney injury, improved. 3.Fever, unclear etiology, venous infection ruled out. Cultures negative. 4.Alzheimer dementia without behavioral disturbance, stable. 5.Seizure disorder, stable. 6.Generalized anxiety disorder, stable. 7.Major depressive disorder, stable. 8.Meningocele. Hospital Course: Patient is a 69-year-old male from [facility] with past medical hist ory of seizures, Alzheimer's dementia, comes in with altered mental status. Patient was admitted to the hospital for further evaluation. He had fever, possibility of SUPERVISOR SHIPPING ROOM infection was entertained. He had a lumbar puncture done. CSF fluid showed minimally elevated protein. CSF fluid culture did not grow any bacteria. There was no WBCs or organisms seen. UA was negative and urine culture also rem ained negative. He did have an elevated white blood cell count of 11.3 with bands; however, normaliz ed. Lactate also improved with hydration. UDS was negative. His valproic acid level however was lo w. Blood cultures also came back negative. Influenza screen was negative. Throat culture showed no rmal mitch. Rapid screen for strep was also negative. Patient's antibiotics were deescalated. Head CT scan was done, which did not show any acute hemorrhage or changes and he does have ventriculomega ly. He has a meningocele. Patient was seen by Dr. Turner with Neurology. EEG was also done, did not show any seizure focus, did show some metabolic encephalopathy changes. The patient's baseline s tarted to get back to baseline. He was awake, alert, and oriented. His dementia remained stable, di d not have any behavioral disturbances. Patient was then cleared for discharge back to the nursing [facility]. He will need to follow up with Dr. Turner in 4 weeks as well as possible neurosurgical ev aluation for meningocele. Followup: Follow up with primary care physician in 2-3 days. Condition: Stable. Activity: Fall precautions, seizure precautions. Diet: Heart healthy. Medications: As per medication reconciliation list. Physical Examination: General: Awake, alert, and oriented x2, not in any acute distress, elderly male. CV: S1, S2. Respiratory: Moving air well bilaterally. Abdomen: Abdomen is soft, nontender, nondistended. Positive bowel sounds. Extremities: No clubbing, cyanosis, or edema. Neurologic: Nonfocal. Total time spent discharging the patient was 38 minutes. /MARLENA Voice ID: [id number] Report ID: [id number]
== END 2019-05-07 18:25 | DRG 71 ==
LOC: ER 20:40 → ERHOLD 05-04 01:12 → 4TH 05-04 01:56 → OBSVTOIN 05-06 08:58
PROVIDERS: ADMIT Hospitalist; ATTEND Hospitalist
PROC: 009U3ZX Drainage of Spinal Canal, Percutaneous Approach, Diagnostic (ICD-10-PCS; principal; 2019-05-05)
DX: G93.41 Metabolic encephalopathy (principal); N17.9 Acute kidney failure, unspecified; Q01.9 Encephalocele, unspecified; R50.9 Fever, unspecified; G30.9 Alzheimer's disease, unspecified; F02.80 Dementia in other diseases classified elsewhere, unspecified severity, without behavioral disturbance, psychotic disturbance, mood disturbance, and anxiety; G40.909 Epilepsy, unspecified, not intractable, without status epilepticus; F41.1 Generalized anxiety disorder; F32.9 Major depressive disorder, single episode, unspecified
CPT/HCPCS: 36415; 51702; 70450; 71045; 77003; 80048; 80053; 80076; 80164; 80202; 80307; 81003; 81015; 82550; 82553; 82945; 82947; 83605; 83690; 84145; 84157; 84484; 85025; 85610; 85730; 86592; 87040; 87070; 87081; 87205; 87804; 89050; 93005; 95819; 96365; 96375; 99285; G0378; J0456; J0696; J1200; J1630; J7030; J7040

== ENCOUNTER 2019-10-17 17:46 | Emergency (ER) | payer OTHER ==
--- OUTSIDE RECORDS SUMMARY | 2019-10-17 17:49 | XMS REPORT | Continuity of Care Document ---
:1950 Author Organization [employer] Care Team Providers Name Role Phone [employer] Unavailable Un available Problems Problem Status Onset Classification Date Comments Sourc e Date Reported Complex partial Active Problem 01/18/2019 [facility] epileptic Neuro seizure (disorder) Meningocele Active Problem 01/18/2019 [facility] [place]order[place] Neuro Tinnitus Active Problem 01/18/2019 [facility] (finding) Neuro Medications No Data Provided for This Section Allergies, Adverse Reactions, Alerts Substance Category Reaction Severity Reaction Status Date Comments S ource type Reported TEGretol Assertion Drug Active [facility] er allergy Neuro Immunizations No Data Provided for [...] Date Comments Source Height 177.8 cm 09/12/2018 [facility] BMI Calculated 29.91 09/12/2018 [facility] Weight 94.545 09/12/2018 [facility] Systolic (mm Hg) 126 09/12/2018 [facility] Dino ro Diastolic (mm Hg) 71 09/12/2018 [facility] [place] uro Respitory Rate 16 09/12/2018 [facility] Heart Rate 82 09/12/2018 [facility] Encounters Location Location Encounter Encounter Reason Attending ADM DC Stat Source Details Type Number For Provider Date Date Visit Outpatient [id number] Sunday 07/24 Active [facility] [id number] Sunday 08/07 Active [facility] [id number] Sunday 08/28 [facility] [id number] Sunday 08/28 08/28 [facility] Pre-Reg [place] /2018 [facility] [place] [facility] Outside [id number] 09/05 09/07 [facility] Medical /2018 [facility] [place] Records Outpatient [id number] Sunday 09/12 [facility] [id number] Sunday 09/12 09/13 [facility] [place] Outpatient [id number] Sunday 01/16 [facility] [id number] Sunday 01/16 01/16 [facility] [place] Procedures Procedure Code Date Perfomer Comments Source Craniotomy [id number] [facility] Assessment and Plan No Data Provided for This Section Plan of Care No Data Provided for This Section Social History Social History Date Source Social History TypeResponse 07/24/2018 [facility] Neur o Alcohol Current1 Employment/School 2 Smoking Status Former smoker; Exposure to Tobacco Smoke Unable to obtain; Cigarette Smoking Last 365 Days Unable to obtain; Reg Smoking Cessation Counseling No entered on: 09/16/18 1Almost every day2Pt. does not have a po wer of Tree Deadener. Can release medical information to Chayito Clements-Sister, Kath Espino-Sister, Rosina Richardson-Niece, Ladonna Dewitt- Niece Family History No Data Provided for This Section Advance Directives No Data Provided for This Section Functional Status No Data Provided for This Section
--- NOTE | 2019-10-17 19:17 | RAD REPORT ---
EXAM DESCRIPTION: RAD - Chest Single View - 10/17/2019 7:12 pm CLINICAL HISTORY: choking Chest pain. COMPARISON: Chest Single View dated 05/03/2019; CHEST SINGLE VIEW dated 01/19/2014 FINDINGS: Portable technique limits examination quality. Mild bilateral pulmonary opacities are noted, similar to comparative study. Small bilateral pleural e ffusions suspected. The heart is moderately enlarged. No displaced fractures. IMPRESSION: Mild CHF.
[2019-10-17 19:20] LABS: Basophils % 0.2 % (0-1.3); Hematocrit 37.5 % (39.6-49.0); Lymphocytes % 16.3 % (15.3-44.8); MPV 7.7 fL (7.6-11.3)
[2019-10-17 19:39] LABS: ALT/SGPT 23 U/L (12-78); AST/SGOT 21 U/L (15-37); Albumin 3.1 g/dL (3.4-5.0); Alkaline Phosphatase 47 U/L (45-117); BUN Blood Urea Nitrogen 27 mg/dL (7-18); Bicarbonate 33 mmol/L (21-32); Bilirubin Direct < 0.1 mg/dL (0-0.2); Bilirubin Total 0.2 mg/dL (0.2-1.0); Glucose Level 112 mg/dL (74-106); Lipase 85 U/L (73-393); Potassium 4.2 mmol/L (3.5-5.1); Protein, Total 7.1 g/dL (6.4-8.2); Sodium Level 143 mmol/L (136-145)
--- NOTE | 2019-10-17 21:25 | ER ---
Nurse's Notes [facility] Name: Anette Reis Age: 69 yrs Sex: Male : 1950 Arrival Date: 10/17/2019 Time: 17:53 Bed 7 Private MD: Diagnosis: Vomiting Presentation: 10/16 17:55 Chief complaint: EMS states: Pt from [place], staff called EMS for possible ph choking/aspiration, reports that pt was "eating in hallway", found by staff slumped over w/ vomitus noted nearby, when EMS arrived pt was lying in bed on L side, responsive, A\\T\\O x 1 which staff reports is pt's baseline, breath sounds CTA, Spo2 90% RA, improved to 100%b on NRB. Coronavirus screen: Patient denies a cough. Patient denies shortness of breath or difficulty breathing. Patient denies measured and/or subjective temperature greater than 100.4F prior to today's visit. Patient denies travel on a cruise ship or to a country the [facility] currently lists as an affected area. Patient denies contact with known and/or suspected case of COVID-19. Ebola Screen: No symptoms or risks identified at this time. Initial Sepsis Screen: Does the patient meet any 2 criteria? No. Patient's initial sepsis screen is negative. Does the patient have a suspected source of infection? No. Patient's initial sepsis screen is negative. Risk Assessment: Do you want to hurt yourself or someone else? Patient reports no desire to harm self or others. Onset of symptoms was October 17, 2019. 17:55 Method Of Arrival: EMS: [facility] 17:55 Acuity: R[place] 3 ph Historical: - Allergies: 18:06 NKDA; ph - Home Meds: 18:06 tramadol 50 mg Oral tab 1 tab twice a day as needed [Active]; ascorbic acid (vitamin C) ph 500 mg tab [Active]; cetirizine 10 mg oral tab 1 tab once daily [Active]; docusate sodium 100 mg Oral cap 1 cap once daily [Active]; Flomax 0.4 mg Oral cp24 1 cap once daily [Active]; Flonase 50 mcg/actuation Nasal spsn 1 spray 2 times per day [Active]; melatonin 3 mg Oral tab [Active]; sertraline 50 mg oral tab 1 tab once daily [Active]; Xanax 0.5 mg Oral tab 1 tab daily [Active]; - PMHx: 18:06 Anxiety; Seizures; tinnitus; cognitive communication deficit; ETOH abuse; ph encephalopathy; - Immunization history:: Adult Immunizations unknown. - Social history:: Smoking status: unknown. Screenin:06 Abuse screen: Denies threats or abuse. Denies injuries from another. Nutritional ph screening: No deficits noted. Tuberculosis screening: No symptoms or risk factors identified. Fall Risk No fall in past 12 months (0 pts). Secondary diagnosis (15 points) seizures, dementia, IV access (20 points). Ambulatory Aid- None/Bed Rest/Nurse Assist (0 pts). Gait- Weak (10 pts.). Mental Status- Overestimates/Forgets Limitations (15 pts.). Total Anand Fall Scale indicates High Risk Score (45 or more points). Fall prevention measures have been instituted. Side Rails Up X 2 Placed Close to Nursing Station Frequent Obs/Assessments Occuring As available patient and family educated on Fall Prevention Program and Strategies. Assessment: 18:24 General: Appears in no apparent distress. comfortable, Behavior is cooperative. Pain: ph Denies pain. Neuro: Level of Consciousness is awake, alert, Oriented to person. Cardiovascular: Capillary refill < 3 seconds in bilateral fingers Patient's skin is warm and dry. Respiratory: Airway is patent Respiratory effort is even, unlabored, Respiratory pattern is regular, symmetrical. GI: Abdomen is round non-distended. Derm: Skin is intact, Skin is pink, warm \\T\\ dry. 19:56 Reassessment: PO CHALLENGE DONE. PATIENT TOLERATED WITHOUT NAUSEA AND VOMITING. rv 21:13 Reassessment: Patient and/or family updated on plan of care and expected duration. Pain rv level reassessed. Patient denies pain at this time. Vital Signs: 17:55 Pulse 84; Resp 18; Temp 97.8; Pulse Ox 97% on R/A; ph 18:54 BP 140 / 89; ph 19:50 BP 147 / 110; Pulse 72; Resp 17; Pulse Ox 99% on R/A; rv 21:12 BP 121 / 88; Pulse 78; Resp 17; Pulse Ox 100% on R/A; rv 22:03 BP 142 / 99; Pulse 79; Resp 16; Temp 98; Pulse Ox 98% on R/A; rv ED Course: 17:53 Patient arrived in ED. ph 17:59 Triage completed. ph 18:06 Arm band placed on Patient placed in an exam room, on a stretcher, on groundwater monitoring technician, ph on pulse oximetry. 18:07 Patient has correct armband on for positive identification. Bed in low position. Call ph light in reach. Side rails up X2. Pulse ox on. NIBP on. Door closed. Noise minimized. Warm blanket given. 18:11 Darrell Cerda PA is PHCP. [facility] 18:11 Der Browning MD is Attending Physician. [facility] 18:24 Rufina Krishnan, ÁLVARO is Primary Nurse. ph 19:04 Initial lab(s) drawn, by pa, sent to lab. [facility] 19:12 XRAY Chest (1 view) In Process Unspecified. EDMS 22:03 No provider procedures requiring assistance completed. IV discontinued, intact, rv bleeding controlled, No redness/swelling at site. Pressure dressing applied. Administered Medications: No medications were administered Outcome: 21:24 Discharge ordered by . [facility] 22:03 Discharged to [facility]. Report called to [facility] Transfer form completed. rv Valuables list done. 22:03 Condition: good 22:03 Discharge instructions given to EMS, Instructed on the need for admit, Demonstrated understanding of instructions, follow-up care. 22:04 Patient left the ED. rv Signatures: Dispatcher [employer] EDPA Darrell Cerda PA PA [facility] Rufina Krishnan, RN RN Manju Flores [facility] Eugene Nye RN RN rv
--- NOTE | 2019-10-17 21:25 | EDPHYS ---
Physician Documentation [facility] Name: Anette Reis Age: 69 yrs Sex: Male : 1950 Arrival Date: 10/17/2019 Time: 17:53 Bed 7 Private MD: ED Physician Dre Browning HPI: 10/16 21:39 This 69 yrs old Male presents to ER via EMS with complaints of Choked/Choking jr8 - on food, suspected. 21:39 EMS brought patient to hospital after being called out by OR for unresponsive patient jr8 with possible choking. Stated that OR staff found him slumped over in chair with vomitus present. Was eating in [address] at that time. Patient upon arrival back to baseline and in no acute distress. History of encephalopathy with confusion . Severity of symptoms: At their worst the symptoms were moderate in the emergency department the symptoms have resolved. It is unknown whether or not the patient has had similar symptoms in the past. It is unknown whether or not the patient has recently seen a physician. Historical: - Allergies: 18:06 NKDA; ph - Home Meds: 18:06 tramadol 50 mg Oral tab 1 tab twice a day as needed [Active]; ascorbic acid (vitamin C) ph 500 mg tab [Active]; cetirizine 10 mg oral tab 1 tab once daily [Active]; docusate sodium 100 mg Oral cap 1 cap once daily [Active]; Flomax 0.4 mg Oral cp24 1 cap once daily [Active]; Flonase 50 mcg/actuation Nasal spsn 1 spray 2 times per day [Active]; melatonin 3 mg Oral tab [Active]; sertraline 50 mg oral tab 1 tab once daily [Active]; Xanax 0.5 mg Oral tab 1 tab daily [Active]; - PMHx: 18:06 Anxiety; Seizures; tinnitus; cognitive communication deficit; ETOH abuse; ph encephalopathy; - Immunization history:: Adult Immunizations unknown. - Social history:: Smoking status: unknown. ROS: 21:39 Unable to obtain ROS due to patient's inability to understand questions. jr8 Exam: 21:39 Eyes: Pupils equal round and reactive to light, extra-ocular motions intact. Lids and jr8 lashes normal. Conjunctiva and sclera are non-icteric and not injected. Cornea within normal limits. Periorbital areas with no swelling, redness, or edema. ENT: Nares patent. No nasal discharge, no septal abnormalities noted. Tympanic membranes are normal and external auditory canals are clear. Oropharynx with no redness, swelling, or masses, exudates, or evidence of obstruction, uvula midline. Mucous membranes moist. Neck: Trachea midline, no thyromegaly or masses palpated, and no cervical lymphadenopathy. Supple, full range of motion without nuchal rigidity, or vertebral point tenderness. No Meningismus. Cardiovascular: Regular rate and rhythm with a normal S1 and S2. No gallops, murmurs, or rubs. Normal PMI, no JVD. No pulse deficits. Respiratory: Lungs have equal breath sounds bilaterally, clear to auscultation and percussion. No rales, rhonchi or wheezes noted. No increased work of breathing, no retractions or nasal flaring. Abdomen/GI: Soft, non-tender, with normal bowel sounds. No distension or tympany. No guarding or rebound. No evidence of tenderness throughout. Back: No spinal tenderness. No costovertebral tenderness. Full range of motion. Skin: Warm, dry with normal turgor. Normal color with no rashes, no lesions, and no evidence of cellulitis. MS/ Extremity: Pulses equal, no cyanosis. Neurovascular intact. Full, normal range of motion. 21:39 Neuro: Orientation: to person, Mentation: slow to respond, confused, Memory: immediate memory is intact, remote memory is impaired, recent memory is impaired, Cranial nerves: CN I not tested, CN II- XII are normal as tested, extraocular movements are intact, Facial palsy and sensory deficits are absent. Speech is slowed, Tongue strength is normal, Motor: moves all fours, Sensation: is normal, Gait: not tested. seizure activity, is not displayed by the patient, Abnormal movements: there are no abnormal movements. Vital Signs: 17:55 Pulse 84; Resp 18; Temp 97.8; Pulse Ox 97% on R/A; ph 18:54 BP 140 / 89; ph 19:50 BP 147 / 110; Pulse 72; Resp 17; Pulse Ox 99% on R/A; rv 21:12 BP 121 / 88; Pulse 78; Resp 17; Pulse Ox 100% on R/A; rv 22:03 BP 142 / 99; Pulse 79; Resp 16; Temp 98; Pulse Ox 98% on R/A; rv MDM: 18:12 Patient medically screened. [facility] 21:23 Data reviewed: vital signs, nurses notes, lab test result(s), EKG, radiologic studies, jr8 plain films, and as a result, I will discharge patient. Data interpreted: Pulse oximetry: on room air is 100 %. Interpretation: normal. Counseling: I had a detailed discussion with the patient and/or guardian regarding: the historical points, exam findings, and any diagnostic results supporting the discharge/admit diagnosis, lab results, radiology results, the need for outpatient follow up, a family practitioner, to return to the emergency department if symptoms worsen or persist or if there are any questions or concerns that arise at home. Response to treatment: the patient's symptoms have resolved after treatment. 10/16 18:41 Order name: Basic Metabolic Panel [facility] 10/16 18:41 Order name: CBC with Diff; Complete Time: 20:01 [facility] 10/16 18:41 Order name: Hepatic Function; Complete Time: 20:01 [facility] 10/16 18:41 Order name: Lipase; Complete Time: 20:01 [facility] 10/16 18:42 Order name: Basic Metabolic Panel; Complete Time: 20:01 EDMS 10/16 20:35 Order name: Depakote; Complete Time: 21:23 10/16 18:41 Order name: IV Saline Lock; Complete Time: 19:06 [facility] 10/16 18:41 Order name: Labs collected and sent; Complete Time: 19:05 [facility] 10/16 18:41 Order name: EKG - Nurse/Tech; Complete Time: 19:59 [facility] 10/16 18:41 Order name: XRAY Chest (1 view); Complete Time: 20:01 [facility] 10/16 18:41 Order name: PO challenge; Complete Time: 19:57 [facility] Administered Medications: No medications were administered Disposition: 10/17 08:39 Co-signature as Attending Physician, Dre Browning MD I agree with the assessment and kdr plan of care. Disposition: 10/17/19 21:24 Discharged to Home. Impression: Vomiting. - Condition is Stable. - Discharge Instructions: Choking, Adult, Nausea and Vomiting, Adult. - Medication Reconciliation Form, Thank You Letter, Antibiotic Education, Prescription Opioid Use form. - Follow up: Private Physician; When: 2 - 3 days; Reason: Recheck today's complaints, Continuance of care, Re-evaluation by your physician. - Problem is new. - Symptoms have improved. Signatures: Dispatcher [employer] EDMS Dre Browning MD MD kdr Roszak, Josh, PA PA jr8 Rufina Krishnan RN RN Eugene Tejeda RN RN rv Corrections: (The following items were deleted from the chart) 10/16 22:04 21:24 10/17/2019 21:24 Discharged to Home. Impression: Vomiting. Condition is Stable. rv Forms are Medication Reconciliation Form, Thank You Letter, Antibiotic Education, Prescription Opioid Use. Follow up: Private Physician; When: 2 - 3 days; Reason: Recheck today's complaints, Continuance of care, Re-evaluation by your physician. Problem is new. Symptoms have improved. jr8
[2019-10-17 22:18] VITALS: BP 121/88; O2SAT 100
[2019-10-17 22:20] VITALS: TEMP 98
== END 2019-10-17 22:04 | disposition home or self-care (01) ==
LOC: ER 17:46
DX: R11.10 Vomiting, unspecified (principal)
CPT/HCPCS: 36415; 71045; 80048; 80076; 80164; 83690; 85025; 93005; 99284

== ENCOUNTER 2020-01-22 18:37 | Inpatient (IN) | payer OTHER ==
--- OUTSIDE RECORDS SUMMARY | 2020-01-22 18:38 | XMS REPORT | Continuity of Care Document ---
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 [facility] (disorder) Neuro Tinnitus Active Problem 01/18/2019 [facility] (finding) Neuro Medications No Data Provided for This Section Allergies, Adverse Reactions, Alerts Substance Category Reaction Severity Reaction Status Date Comments S ource type Reported TEGretol Assertion Drug Active [facility] er allergy Neuro Immunizations No Data Provided [...] Date Comments Source Height 177.8 cm 09/12/2018 [facility] Neuro BMI Calculated 29.91 09/12/2018 [facility] Neuro Weight 94.545 09/12/2018 [facility] Neuro Systolic (mm Hg) 126 09/12/2018 [facility] Dino ro Diastolic (mm Hg) 71 09/12/2018 [facility] Ne uro Respitory Rate 16 09/12/2018 [facility] Neuro Heart Rate 82 09/12/2018 [facility] Neuro Encounters Location Location Encounter Encounter Reason Attending ADM DC Stat Source Details Type Number For Provider Date Date Visit Outpatient [id number] Sunday 07/24 Active [facility] [place] Outpatient [id number] Sunday 08/07 Active [facility] [place] Outpatient [id number] Sunday 08/28 [facility] [place] [facility] Ambulatory [id number] Sunday 08/28 08/28 [facility] Neurology Pre-Reg [place] /2018 [facility] [place] [facility] Outside [id number] 09/05 09/07 [facility] Neurology Medical /2018 [facility] [place] [facility] Outpatient [id number] Sunday 09/12 [facility] [place] [facility] Outpatient [id number] Sunday 09/12 09/13 [facility] [place] [facility] [id number] Sunday 01/16 [facility] [place] [facility] [id number] Sunday 01/16 01/16 [facility] Neurology Pre-Reg [facility] [place] Procedures Procedure Code Date Perfomer Comments Source Craniotomy [id number] [facility] Neuro Assessment and Plan No Data Provided for This Section Plan of Care No Data Provided for This Section Social History Social History Date Source Social History TypeResponse 07/24/2018 [facility] Neur o Alcohol Current1 Employment/School 2 Smoking Status Former smoker; Exposure to Tobacco Smoke Unable to obtain; Cigarette Smoking Last 365 Days Unable to obtain; Reg Smoking Cessation Counseling No entered on: 09/16/18 1Almost every day2Pt. does not have a po wer of [employer]. Can release medical information to Chayito Clements-Sister, Kath Espino-Sister, Rosina Richardson-Niece, Ladonna Dewitt- Niece Family History No Data Provided for This Section Advance Directives No Data Provided for This Section Functional Status No Data Provided for This Section
[2020-01-22] MEDS ORDERED: THIAMINE 200 MG/2 ML INJ ONE (19:53)
[2020-01-22] MEDS ORDERED: NA CHLORIDE 0.9% 500 ML ONE (19:53)
[2020-01-22] MEDS ORDERED: NA CHLORIDE 0.9% 1,000 ML ONE ×2 (19:53→20:24)
--- NOTE | 2020-01-22 20:13 | RAD REPORT ---
EXAM DESCRIPTION: CT - Head Brain Wo Cont - 01/22/2020 8:05 pm CLINICAL HISTORY: Alteration of awareness/confusion COMPARISON: April 2019 TECHNIQUE: Computed axial tomography of the head was obtained. IV contrast was not requested. All CT scans are performed using dose optimization technique as appropriate and may include automated exposure control or mA/KV adjustment according to patient size. FINDINGS: A right craniotomy. Cystic encephalomalacia and gliosis right cerebrum unchanged. 17 jessica meter area cystic encephalomalacia protrudes through the right posterior frontal craniotomy defect un changed from the prior exam. He was cerebral atrophy. No acute intracranial bleed. Prominence of the ventricles is unchanged. Fluid within the sinuses/ mastoids is not seen. IMPRESSION: No acute intracranial abnormality is seen. If patient's symptoms persist MRI of the bra in would be recommended.
[2020-01-22] MEDS ORDERED: PIPER/TAZO/NS 3.375gm 3.375 GM/100 ML BAG ONE (20:24)
[2020-01-22 20:36] LABS: Protime INR 1.15
[2020-01-22 20:37] LABS: Basophils % 0.1 % (0-1.3); Hematocrit 38.9 % (39.6-49.0); Lymphocytes % 10.1 % (15.3-44.8); MPV 8.1 fL (7.6-11.3); RBC Red Blood Cell Count 4.26 M/uL (4.33-5.43)
[2020-01-22 20:48] LABS: ALT/SGPT 24 U/L (12-78); AST/SGOT 58 U/L (15-37); Albumin 2.1 g/dL (3.4-5.0); Alkaline Phosphatase 50 U/L (45-117); BUN Blood Urea Nitrogen 26 mg/dL (7-18); Bicarbonate 31 mmol/L (21-32); Bilirubin Direct 0.1 mg/dL (0-0.2); Bilirubin Total 0.4 mg/dL (0.2-1.0); Glucose Level 113 mg/dL (74-106); Lipase 33 U/L (73-393); Magnesium 2.3 mg/dL (1.8-2.4); NT PRO-BNP 436 pg/mL (<125); Protein, Total 7.3 g/dL (6.4-8.2); Sodium Level 142 mmol/L (136-145); Troponin (Emerg Dept Use Only) < 0.02 ng/mL (0.0-0.045)
--- NOTE | 2020-01-22 20:49 | RAD REPORT ---
EXAM DESCRIPTION: Dede Single View01/22/2020 8:17 pm CLINICAL HISTORY: Cough COMPARISON: September 2019 FINDINGS: The lungs appear clear of acute infiltrate. The heart is normal size IMPRESSION: No acute abnormalities displayed
--- NOTE | 2020-01-22 21:04 | EDPHYS ---
Physician Documentation [facility] Name: Anette Reis Age: 69 yrs Sex: Male : 1950 Arrival Date: 01/22/2020 Time: 18:38 Bed 5 Private MD: ED Physician Russ Beverly HPI: 01/21 20:55 This 69 yrs old Male presents to ER via EMS with complaints of Altered Mental cherelle Status. 20:55 The patient presents with confusion, decreased mental status, decreased responsiveness. cherelle Onset: The symptoms/episode began/occurred 1 day(s) ago. Possible causes: CVA or TIA, head injury, low blood sugar, seizure, sepsis. Associated signs and symptoms: Pertinent positives: confusion. Patient's baseline: Neuro: not alert, Motor: WEAK, DECREASED ROM ALL EXTREMITIES. Historical: - Allergies: 18:44 NKDA; tw2 - PMHx: 18:44 ENCEPHALOPATHY; cognitive communication deficit; etoh abuse; Anxiety; Seizures; tw2 tinnitus; - Immunization history:: Adult Immunizations. - Social history:: Smoking status: . - Family history:: not pertinent. ROS: 20:55 Constitutional: Negative for fever, chills, and weight loss, Eyes: Negative for injury, cherelle pain, redness, and discharge, ENT: Negative for injury, pain, and discharge, Neck: Negative for injury, pain, and swelling, Cardiovascular: Negative for chest pain, palpitations, and edema, Respiratory: Negative for shortness of breath, cough, wheezing, and pleuritic chest pain, Abdomen/GI: Negative for abdominal pain, nausea, vomiting, diarrhea, and constipation, Back: Negative for injury and pain, : Negative for injury, bleeding, discharge, and swelling, MS/Extremity: Negative for injury and deformity, Skin: Negative for injury, rash, and discoloration, Psych: Negative for depression, anxiety, suicide ideation, homicidal ideation, and hallucinations, Allergy/Immunology: Negative for hives, rash, and allergies, Endocrine: Negative for neck swelling, polydipsia, polyuria, polyphagia, and marked weight changes, Hematologic/Lymphatic: Negative for swollen nodes, abnormal bleeding, and unusual bruising. 20:55 Neuro: Positive for altered mental status, weakness, LOW BLOOD PRESSURE. Exam: 20:55 Cardiovascular: Rate: normal, Rhythm: regular, Pulses: Pulses are 4+ in bilateral cherelle radial, brachial, femoral, popliteal, posterior tibial and and dorsalis pedis arteries.. Heart sounds: normal, normal S1and S2, no S3 or S4, no murmur, no rub, no gallop, Edema: is not appreciated, JVD: is not appreciated. 20:55 Musculoskeletal/extremity: Circulation is intact in all extremities. DVT Exam: No signs of deep vein thrombosis. no pain, no swelling, no tenderness, negative Homans' sign noted on exam, no appreciated bluish discoloration, no erythema, no increased warmth. 21:05 ECG was reviewed by the Attending Physician. [facility] Vital Signs: 18:44 BP 90 / 64; Pulse 92; Resp 18; Temp 98; Pulse Ox 94% on R/A; mg2 20:00 BP 95 / 62; Pulse 93; Resp 19; Pulse Ox 100% ; rr5 20:10 Weight 90 kg; rr5 21:13 BP 102 / 62; Pulse 90; Resp 16; Pulse Ox 99% on R/A; rr5 22:00 BP 105 / 62; Pulse 85; Resp 19; Pulse Ox 99% ; rr5 23:00 BP 101 / 80; Pulse 75; Resp 19; Pulse Ox 97% ; rr5 01/22 00:00 BP 104 / 65; Pulse 70; Resp 19; Temp 98.2; Pulse Ox 96% ; rr5 MDM: 01/21 19:24 Patient medically screened. [facility] 21:00 Differential Diagnosis: electrolyte abnormality, hypoglycemia, pneumonia, sepsis, TIA, cherelle UTI, volume depletion. Data reviewed: vital signs, nurses notes, lab test result(s), EKG, radiologic studies, CT scan, plain films. Data interpreted: equipment monitor phototypesetting: rate is 92 beats/min, rhythm is regular, Pulse oximetry: on 2L(s) per nasal canula, is 94 %. Test interpretation: by ED physician or midlevel provider: ECG, plain radiologic studies. Counseling: I had a detailed discussion with the patient and/or guardian regarding: the historical points, exam findings, and any diagnostic results supporting the discharge/admit diagnosis, the presence of at least one elevated blood pressure reading (>120/80) during this emergency department visit, lab results, radiology results, the need for further work-up and treatment in the hospital. 01/21 19:37 Order name: Basic Metabolic Panel; Complete Time: 20:51 [facility] 01/21 19:37 Order name: CBC with Diff [facility] 01/21 19:37 Order name: LFT's; Complete Time: 20:51 [facility] 01/21 19:37 Order name: Magnesium; Complete Time: 20:51 [facility] 01/21 19:37 Order name: NT PRO-BNP; Complete Time: 20:51 [facility] 01/21 19:37 Order name: PT-INR; Complete Time: 20:51 [facility] 01/21 19:37 Order name: Troponin (emerg Dept Use Only); Complete Time: 20:51 [facility] 01/21 19:37 Order name: Lipase; Complete Time: 20:51 [facility] 01/21 19:37 Order name: AMMONIA; Complete Time: 20:51 [facility] 01/21 20:09 Order name: Blood Culture Adult (2) rust 01/21 20:09 Order name: Lactate rust 01/21 20:10 Order name: Blood Culture [facility] 01/21 20:10 Order name: Lactate [facility] 01/21 20:40 Order name: Manual Differential [facility] 01/21 19:37 Order name: XRAY Chest (1 view); Complete Time: 20:51 [facility] 01/21 19:37 Order name: CT Head Brain wo Cont; Complete Time: 20:51 [facility] 01/21 20:44 Order name: Urine Microscopic Only rust 01/21 20:44 Order name: Urine Microscopic Only [facility] 01/21 20:55 Order name: Depakote [facility] 01/21 21:10 Order name: Urine Dipstick--Ancillary (enter results) [facility] 01/21 21:10 Order name: Urine Dipstick-Ancillary [facility] 01/22 06:55 Order name: CBC with Automated Diff [facility] 01/22 07:04 Order name: Lactate [facility] 01/22 07:06 Order name: Basic Metabolic Panel [facility] 01/22 07:06 Order name: Magnesium [facility] 01/22 07:06 Order name: Ferritin [facility] 01/22 07:25 Order name: D-Dimer [facility] 01/21 19:37 Order name: EKG; Complete Time: 19:37 [facility] 01/21 19:37 Order name: Cardiac monitoring; Complete Time: 20:23 [facility] 01/21 19:37 Order name: EKG - Nurse/Tech; Complete Time: 20:23 [facility] 01/21 19:37 Order name: IV Saline Lock; Complete Time: 20:23 [facility] 01/21 19:37 Order name: Labs collected and sent; Complete Time: 20: [facility] 01/21 19:37 Order name: O2 Per Protocol; Complete Time: 20: [facility] 01/21 19:37 Order name: O2 Sat Monitoring; Complete Time: 20: [facility] 01/21 19:37 Order name: Urine Dipstick-Ancillary (obtain specimen); Complete Time: 20:43 [facility] 01/21 20:43 Order name: Arguello; Complete Time: 20:44 rr5 EC:05 Rate is 88 beats/min. QRS [place] is Normal. MT interval is normal. QRS interval is cherelle normal. QT interval is normal. No Q waves. T waves are Normal. No ST changes noted. Clinical impression: NSR w/ Non-specific ST/T Changes and No evidence of ischemia. Interpreted by me. Reviewed by me. Administered Medications: 20:21 Drug: NS 0.9% (30 ml/kg) 30 ml/kg Route: IV; Rate: bolus; Site: left forearm; rr5 22:30 Follow up: Response: No adverse reaction; IV Status: Completed infusion; IV Intake: rr5 2700ml 20:21 Drug: Zosyn 3.375 grams Route: IVPB; Infused Over: 60 mins; Site: left forearm; rr5 21:20 Follow up: Response: No adverse reaction; IV Status: Completed infusion; IV Intake: rr5 100ml 20:23 Not Given (Other Intervention Used): NS 0.9% 500 ml IV at bolus once rr5 20:23 Drug: Thiamine 100 mg Route: IV; Rate: bolus; Site: left forearm; rr5 21:20 Follow up: IV Status: Completed infusion rr5 21:10 Drug: Decadron - Dexamethasone 6 mg Route: IVP; Site: left forearm; rr5 22:00 Follow up: Response: No adverse reaction rr5 22:32 Drug: NS 0.9% 1000 ml Route: IV; Rate: 125 ml/hr; Site: left forearm; rr5 01/22 00:00 Follow up: Response: No adverse reaction; IV Status: Infusion continued upon admission; rr5 IV Intake: 250ml Disposition: 01/22/20 21:03 Hospitalization ordered by Kenneth Irvin for Inpatient Admission. Preliminary diagnosis are Altered mental status, unspecified, Dementia in other diseases classified elsewhere, Oncovirus as the cause of diseases classified elsewhere - Covid 19 positive, Hypotension. - Bed requested for Intensive Care Unit. - Status is Inpatient Admission. sv - Condition is Fair. - Problem is new. - Symptoms have improved. Signatures: Dispatcher [employer] EDNeli Tapia RN RN sv Anderson, Corey, MD MD cha Lasagna, Tonya, RN RN tl1 Gracie Farmer RN RN tw2 Cesar Baryr RN RN rr5 Corrections: (The following items were deleted from the chart) 01/21 22:17 21:03 Hospitalization Ordered by Kenneth Irvin MD for Inpatient Admission. Preliminary tl1 diagnosis is Altered mental status, unspecified; Dementia in other diseases classified elsewhere; Oncovirus as the cause of diseases classified elsewhere - Covid 19 positive; Hypotension. Bed requested for Telemetry/MedSurg (Inpatient). Status is Inpatient Admission. Condition is Fair. Problem is new. Symptoms have improved. [facility] 01/22 06:12 01/21 22:17 01/22/2020 21:03 Hospitalization Ordered by Kenneth Irvin MD for Inpatient tl1 Admission. Preliminary diagnosis is Altered mental status, unspecified; Dementia in other diseases classified elsewhere; Oncovirus as the cause of diseases classified elsewhere - Covid 19 positive; Hypotension. Bed requested for [facility] ER HOLD. Status is Inpatient Admission. Condition is Fair. Problem is new. Symptoms have improved. [facility] 01/22 08:38 06:12 01/22/2020 21:03 Hospitalization Ordered by Kenneth Irvin MD for Inpatient sv Admission. Preliminary diagnosis is Altered mental status, unspecified; Dementia in other diseases classified elsewhere; Oncovirus as the cause of diseases classified elsewhere - Covid 19 positive; Hypotension. Bed requested for Intensive Care Unit. Status is Inpatient Admission. Condition is Fair. Problem is new. Symptoms have improved. 1
--- NOTE | 2020-01-22 21:04 | ER ---
Nurse's Notes [facility] Name: Anette Reis Age: 69 yrs Sex: Male : 1950 Arrival Date: 01/22/2020 Time: 18:38 Bed 5 Private MD: Diagnosis: Altered mental status, unspecified;Dementia in other diseases classified elsewhere;Oncovirus as the cause of diseases classified elsewhere-Covid 19 positive;Hypotension Presentation: 01/21 18:44 Chief complaint: EMS states: patient from [facility], COVID positive result just got mg2 back today, AMS since yesterday, became a little combative, he is normally AOx1 and able to feed himself. but for 2 days he is just on bed, not conversant, and so unwell. BGL-128 mg/dl. Coronavirus screen: Client denies travel out of the [place] in the last 14 days. Client reports previous positive COVID test result. from [facility]. Ebola Screen: No symptoms or risks identified at this time. Risk Assessment: Do you want to hurt yourself or someone else? Patient reports no desire to harm self or others. Onset of symptoms was January 21, 2020. 18:44 Method Of Arrival: EMS: [facility] mg2 18:44 Acuity: RICO 2 mg2 19:10 Initial Sepsis Screen: Does the patient meet any 2 criteria? No. Patient's initial rr5 sepsis screen is negative. Does the patient have a suspected source of infection? Yes: Productive cough/pneumonia. Historical: - Allergies: 18:44 NKDA; tw2 - PMHx: 18:44 ENCEPHALOPATHY; cognitive communication deficit; etoh abuse; Anxiety; Seizures; tw2 tinnitus; - Immunization history:: Adult Immunizations. - Social history:: Smoking status: . - Family history:: not pertinent. Screenin:44 Abuse screen: Denies threats or abuse. Nutritional screening: No deficits noted. tw2 Tuberculosis screening: No symptoms or risk factors identified. Fall Risk Secondary diagnosis (15 points) impaired mobility. Assessment: 19:32 General: Appears in no apparent distress. comfortable, Behavior is quiet. Pain: Unable rr5 to use pain scale. Patient appears quiet. Neuro: Level of Consciousness is confused, Oriented to none. Cardiovascular: Capillary refill < 3 seconds Patient's skin is warm and dry. Respiratory: Airway is patent Respiratory effort is even, unlabored, Respiratory pattern is regular, symmetrical, Parent/caregiver reports the patient having COVID positive. GI: No signs and/or symptoms were reported involving the gastrointestinal system. : No signs and/or symptoms were reported regarding the genitourinary system. EENT: No signs and/or symptoms were reported regarding the EENT system. Derm: Skin is intact, is healthy with good turgor, Skin temperature is warm. Musculoskeletal: Circulation, motion, and sensation intact. Capillary refill < 3 seconds. 20:30 Reassessment: Patient appears in no apparent distress at this time. awaiting for rr5 results. 21:30 Reassessment: Patient appears in no apparent distress at this time. vital signs on rr5 hemodynamically stable. Patient denies pain at this time. 21:44 Reassessment: JOVAN carrera [phone] updated for the plan of care. rr5 22:40 Reassessment: Patient appears in no apparent distress at this time. seen by hospitalist rr5 for admission. 01/22 00:00 Reassessment: Patient appears in no apparent distress at this time. patient admitted a rr5 s ER hold. Vital Signs: 01/21 18:44 BP 90 / 64; Pulse 92; Resp 18; Temp 98; Pulse Ox 94% on R/A; mg2 20:00 BP 95 / 62; Pulse 93; Resp 19; Pulse Ox 100% ; rr5 20:10 Weight 90 kg; rr5 21:13 BP 102 / 62; Pulse 90; Resp 16; Pulse Ox 99% on R/A; rr5 22:00 BP 105 / 62; Pulse 85; Resp 19; Pulse Ox 99% ; rr5 23:00 BP 101 / 80; Pulse 75; Resp 19; Pulse Ox 97% ; rr5 01/22 00:00 BP 104 / 65; Pulse 70; Resp 19; Temp 98.2; Pulse Ox 96% ; rr5 ED Course: 01/21 18:38 Patient arrived in ED. tw2 18:39 Miguel Ortiz, ÁLVARO is Primary Nurse. jl7 18:40 Placed in gown. Bed in low position. monitoring engineer on. Pulse ox on. NIBP on. tw2 18:45 Arm band placed on. tw2 18:49 Triage completed. mg2 19:00 Cesar Barry RN is Primary Nurse. rr5 19:24 Russ Beverly MD is Attending Physician. cherelle 20:00 Inserted saline lock: 20 gauge in left forearm, using aseptic technique. Blood rr5 collected. 20:05 CT Head Brain wo Cont In Process Unspecified. EDMS 20:17 XRAY Chest (1 view) In Process Unspecified. EDMS 20:44 Urine collected: clean catch specimen, clear. rr5 20:45 Arguello cath inserted, using sterile technique, 16 Fr., by ut, balloon inflated, to rr5 gravity drainage. 21:02 Kenneth Irvin MD is Hospitalizing Provider. [facility] 01/22 00:00 No provider procedures requiring assistance completed. Patient admitted, IV remains in rr5 place. intact, No redness/swelling at site. Administered Medications: 01/21 20:21 Drug: NS 0.9% (30 ml/kg) 30 ml/kg Route: IV; Rate: bolus; Site: left forearm; rr5 22:30 Follow up: Response: No adverse reaction; IV Status: Completed infusion; IV Intake: rr5 2700ml 20:21 Drug: Zosyn 3.375 grams Route: IVPB; Infused Over: 60 mins; Site: left forearm; rr5 21:20 Follow up: Response: No adverse reaction; IV Status: Completed infusion; IV Intake: rr5 100ml 20:23 Not Given (Other Intervention Used): NS 0.9% 500 ml IV at bolus once rr5 20:23 Drug: Thiamine 100 mg Route: IV; Rate: bolus; Site: left forearm; rr5 21:20 Follow up: IV Status: Completed infusion rr5 21:10 Drug: Decadron - Dexamethasone 6 mg Route: IVP; Site: left forearm; rr5 22:00 Follow up: Response: No adverse reaction rr5 22:32 Drug: NS 0.9% 1000 ml Route: IV; Rate: 125 ml/hr; Site: left forearm; rr5 01/22 00:00 Follow up: Response: No adverse reaction; IV Status: Infusion continued upon admission; rr5 IV Intake: 250ml Intake: 01/21 21:20 IV: 100ml; Total: 100ml. rr5 22:30 IV: 2700ml; Total: 2800ml. rr5 01/22 00:00 IV: 250ml; Total: 3050ml. rr5 Outcome: 01/21 21:03 Decision to Hospitalize by Provider. cherelle 01/22 00:00 Admitted to ER Hold. Please see [facility] for further documentation. rr5 Condition: stable Instructed on the need for admit, family member aware patient is for admission 08:38 Patient left the ED. sv Signatures: Dispatcher [employer] EDNeli Tapia, RN RN sv Russ Beverly MD MD cha Wise, Tara, RN RN tw2 Miguel Ortiz RN RN jl7 Karan Hopkins RN RN mg2 Cesar Barry RN RN rr5 Corrections: (The following items were deleted from the chart) 01/21 18:50 18:44 Chief complaint: EMS states: patient from [facility], COVID positive result just mg2 got back today, AMS since yesterday, became a little combative, he is normally AOx1 and able to feed himself. but for 2 days he is just on bed, not conversant, and so unwell. mg2 18:53 18:44 Pulse 92bpm; Resp 18bpm; Pulse Ox 94% RA; Temp 98F; mg2 mg2
[2020-01-22] MEDS ORDERED: dexAMETHasone 10 MG/ML VIAL ONE (21:11)
[2020-01-22 21:22] LABS: Urine Blood NEGATIVE (NEG); Urine Glucose NEGATIVE (NEG); Urine Protein 1+ (NEG); Urine Specific Gravity >1.030 (1.005-1.030)
[2020-01-22 21:22] LABS: Urine Bacteria <20 /HPF (NONE SEEN); Urine Culture Reflex Order NOT NEEDED; Urine Mucus 1+ /HPF (NONE SEEN); Urine RBC <5 /HPF (NONE SEEN)
[2020-01-22 21:45] LABS: Blood Morphology Comment NOT SEEN (NOT SEEN); Platelet Estimate ADEQ
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
[2020-01-22] MEDS: NA CHLORIDE 0.9% 1,000 ML IV SCH ×2 (23:00)
[2020-01-23] MEDS ORDERED: NA CHLORIDE 0.9% 1,000 ML ONE (00:06)
[2020-01-23] MEDS ORDERED: PIPER/TAZO/NS 3.375gm 3.375 GM/100 ML BAG IVPB SCH (01:00)
[2020-01-23] MEDS: HEPARIN 5000 UNIT/ML 1 ML VIAL SQ SCH ×3 (01:00→16:31)
[2020-01-23] MEDS ORDERED: HEPARIN 5000 UNIT/ML 1 ML VIAL ONE (01:57)
[2020-01-23 03:31] VITALS: BMI 27.6
[2020-01-23 06:47] LABS: Absolute Lymphocytes (CBC) 0.9 K/uL (0.7-4.9); Basophils % 0.3 % (0-1.3); Hematocrit 35.7 % (39.6-49.0); Lymphocytes % 9.3 % (15.3-44.8); RBC Red Blood Cell Count 3.97 M/uL (4.33-5.43)
[2020-01-23 07:06] LABS: BUN Blood Urea Nitrogen 24 mg/dL (7-18); Bicarbonate 27 mmol/L (21-32); Ferritin 378.2 ng/mL (26-388); Glucose Level 124 mg/dL (74-106); Magnesium 2.3 mg/dL (1.8-2.4); Potassium 4.5 mmol/L (3.5-5.1); Sodium Level 143 mmol/L (136-145)
--- NOTE | 2020-01-23 07:21 | EKG ---
Test Date: 2020-01-22 Test Time: 19:44:05 Account Services Analyst: AMMON MEASUREMENT RESULTS: Intervals: Rate: 93 MS: 180 QRSD: 76 QT: 356 QTc: 442 [place]: P: 10 MS: 180 QRS: -53 T: 2 INTERPRETIVE STATEMENTS: NORMAL rhythm Left axis deviation Anterior infarct, age undetermined Abnormal ECG Compared to ECG 10/17/2019 19:21:36 [facility] Electronically Signed On 01-23-20 07:20:35 CDT by Caleb Silver
[2020-01-23] MEDS: NA CHLORIDE 0.9% 1,000 ML IV SCH ×2 (09:00→13:15)
[2020-01-23] MEDS: dexAMETHasone 10 MG/ML VIAL IV SCH (09:02)
[2020-01-23] MEDS: PIPER/TAZO/NS 3.375gm 3.375 GM/100 ML BAG IVPB SCH ×2 (09:25→16:31)
[2020-01-23 14:49] VITALS: O2SAT 100
[2020-01-23 15:13] LABS: Urine Appearance CLEAR; Urine Bilirubin NEGATIVE (NEG); Urine Blood NEGATIVE (NEG); Urine Color YELLOW; Urine Glucose NEGATIVE (NEG); Urine Protein NEGATIVE (NEG); Urine Specific Gravity >=1.030 (1.005-1.030); Urine pH 5.5 (5.0-7.0)
[2020-01-23 15:21] LABS: Urine Microscopic Reflex ORDER UMIC
[2020-01-23 15:36] LABS: Urine Bacteria <20 /HPF (NONE SEEN); Urine Culture Reflex Order REFLEXED; Urine Mucus 1+ /HPF (NONE SEEN); Urine RBC <5 /HPF (NONE SEEN)
--- NOTE | 2020-01-23 17:41 | RAD REPORT ---
EXAM DESCRIPTION: CT - Chest Abd Pelvis Wo Con - 01/23/2020 6:42 am CLINICAL HISTORY: The patient is 69 years old and is Male; Altered mental status/fever TECHNIQUE: Axial computed tomography images of the chest, abdomen and pelvis without intravenous con trast. Sagittal and coronal reformatted images were created and reviewed. This CT exam was perfor med using one or more of the following dose reduction techniques: automated exposure control, adjus tment of the mA and/or kV according to patient size, and/or use of iterative reconstruction technique . COMPARISON: No relevant prior studies available. FINDINGS: ARTIFACTS: The exam is suboptimal secondary to motion artifact. CHEST: LUNGS: Scarring/atelectasis in the lung bases is noted. There is no lobar consolidation. PLEURAL SPACE: Unremarkable. No significant effusion. No pneumothorax. HEART: The heart is enlarged. MEDIASTINUM: Tracheobronchial tree is widely patent. ABDOMEN: LIVER: Few hepatic granuloma are present. GALLBLADDER AND BILE DUCTS: No calcified stones. No ductal dilation. PANCREAS: The pancreas is mildly atrophic. No ductal dilation. SPLEEN: Unremarkable. ADRENALS: Unremarkable. No mass. KIDNEYS AND URETERS: No obstructing stones. No hydronephrosis. No perinephric fluid. STOMACH AND BOWEL: The stomach is decompressed. A duodenal diverticulum is noted without surroun ding inflammation. Small bowel is otherwise normal in caliber. A moderate amount stool is present thr oughout colon. Scattered colonic diverticula are noted without surrounding inflammation. There is no bowel obstruction. PELVIS: APPENDIX: The appendix is normal in caliber without surrounding inflammation. BLADDER: The bladder is decompressed with a Arguello catheter in place. No stones. REPRODUCTIVE: Unremarkable as visualized. CHEST, ABDOMEN and PELVIS: INTRAPERITONEAL SPACE: Unremarkable. No significant fluid collection. No free air. BONES/JOINTS: The bones are slightly osteopenic. Multilevel degenerative change of the spine is noted. SOFT TISSUES: The soft tissues are normal. VASCULATURE: Atherosclerosis of the vasculature is present. No aortic aneurysm. LYMPH NODES: Unremarkable. No enlarged lymph nodes. IMPRESSION: No acute findings on this noncontrasted CT of the chest, abdomen and pelvis to explain t he patient's symptoms. Electronically signed by: Vivian Taylor MD 01/23/2020 2:11 AM CDT Due to temporary technical issues with the PACS/Fluency reporting system, reports are being signed by the in house radiologist without review as a courtesy to ensure prompt reporting. The interpreting r adiologist is fully responsible for the content of the report.
[2020-01-24] MEDS: PIPER/TAZO/NS 3.375gm 3.375 GM/100 ML BAG IVPB SCH ×2 (00:20→09:07)
[2020-01-24] MEDS: HEPARIN 5000 UNIT/ML 1 ML VIAL SQ SCH ×2 (00:21→08:25)
[2020-01-24] MEDS: NA CHLORIDE 0.9% 1,000 ML IV SCH (01:47)
[2020-01-24] MEDS: dexAMETHasone 10 MG/ML VIAL IV SCH (08:25)
--- NOTE | 2020-01-24 12:28 | EKG ---
Test Date: 2020-01-22 Test Time: 19:44:33 Dog Breeder: AMMON MEASUREMENT RESULTS: Intervals: Rate: 88 WV: 176 QRSD: 86 QT: 346 QTc: 418 [place]: P: 41 WV: 176 QRS: -52 T: 11 INTERPRETIVE STATEMENTS: Sinus rhythm with frequent premature ventricular complexes Left axis deviation Nonspecific T wave abnormality Abnormal ECG Compared to ECG 01/22/2020 19:44:05 Ventricular premature complex(es) now present T-wave abnormality now present Myocardial infarct finding no longer present Electronically Signed On 01-24-20 12:24:49 CDT by Caleb iSlver
--- NOTE | 2020-01-24 14:58 | P.PN ---
Subjective Date of Service: 01/23/20 Subjective: Improving ACCORDING TO NURSING STAFF PATIENT APPEARS TO BE BASELINE PER USP Review of Systems is unable to be obtained Physical Examination - Vital Signs Temperature: 98.0 F Blood Pressure: 102/78 Pulse: 76 Respirations: 16 Pulse Ox (%): 95 - Physical Exam General: Alert, Disheveled Respiratory: Clear to auscultation bilaterally, Normal air movement Cardiovascular: Regular rate/rhythm, Normal S1 S2 Gastrointestinal: Normal bowel sounds, Soft and benign, Non-distended Musculoskeletal: No clubbing Assessment & Plan - Problems (Diagnosis) (1) Altered mental status Current Visit: Yes Status: Acute (2) Alzheimer's dementia Current Visit: No Status: Acute Qualifiers: Alzheimer's disease onset: late-onset Dementia behavioral disturbance: without behavioral disturbance Qualified Code(s): G30.1 - Alzheimer's disease with late onset; F02.80 - Dementia in other diseases classified elsewhere without behavioral disturbance (3) Seizure disorder Current Visit: No Status: Acute - Plan 1. GENTLE IV HYDRATION 2. IV ANTIBIOTICS 3. ANTI-PLATELET THERAPY AND STATIN THERAPY 4. SEIZURE PRECAUTION 5. NEUROCHECKS 6. PATIENT IMPROVING AND ALMOST AT BASELINE; POSSIBLE DISCHARGE IN THE MORNING 7. FEED WITH ASSISTANCE 8. GI and DVT prophylaxis Discharge Plan: Jail Plan to discharge in: Greater than 2 days - Advance Directives Does patient have a Living Will: No Does patient have a Durable POA for Healthcare: No - Code Status/Comfort Care Code Status Assessed: Yes Code Status: Full Code Critical Care: No Time Spent Managing PTS Care (In Minutes): 35
[2020-01-24 16:22] VITALS: BP 138/107; TEMP 98.2
--- NOTE | 2020-01-26 09:28 | P.DS ---
Discharge Date: 01/24/20 Disposition: TRANSFER TO ALF Discharge Condition: GOOD Reason for Admission: Altered mental status/Covid pneumonia - Problems (1) Altered mental status Status: Acute (2) Alzheimer's dementia Status: Acute Qualifiers: Alzheimer's disease onset: late-onset Dementia behavioral disturbance: without behavioral disturbance Qualified Code(s): G30.1 - Alzheimer's disease with late onset; F02.80 - Dementia in other diseases classified elsewhere without behavioral disturbance (3) Seizure disorder Status: Acute Brief History of Present Illness: Patient is a 69-year-old gentlemen who came into the hospital with altered mental status. Patient was dehydrated and will be given IV fluids. Patient also had a history of seizures. he was recently diagnosed with COVID-19 . However, he was not having any respiratory issues. After hydration patient is improving. Will monitor him in the hospital. Hospital Course: Patient has done well during hospital stay. He is awakened & back to the baseline. At this time, he is stable for discharge home. Vital Signs/Physical Exam: Temp Pulse Resp BP Pulse Ox 98.2 F 84 14 138/107 H 100 01/24/20 16:00 01/24/20 16:00 01/24/20 16:00 01/24/20 16:00 01/24/20 16:00 General: Alert, In no apparent distress, Oriented x3 Laboratory Data at Discharge: WBC 9.7 K/uL (4.3-10.9) 01/23/20 06:30 Hgb 11.8 g/dL (13.6-17.9) L 01/23/20 06:30 Hct 35.7 % (39.6-49.0) L 01/23/20 06:30 Plt Count 204 K/uL (152-406) 01/23/20 06:30 PT 13.5 SECONDS (9.5-12.5) H 01/22/20 20:00 INR 1.15 01/22/20 20:00 Sodium 143 mmol/L (136-145) 01/23/20 06:30 Potassium 4.5 mmol/L (3.5-5.1) 01/23/20 06:30 BUN 24 mg/dL (7-18) H 01/23/20 06:30 Creatinine 0.59 mg/dL (0.55-1.3) 01/23/20 06:30 Glucose 124 mg/dL (74-106) H 01/23/20 06:30 Magnesium 2.3 mg/dL (1.8-2.4) 01/23/20 06:30 Total Bilirubin 0.4 mg/dL (0.2-1.0) 01/22/20 20:00 AST 58 U/L (15-37) H 01/22/20 20:00 ALT 24 U/L (12-78) 01/22/20 20:00 Alkaline Phosphatase 50 U/L (45-117) 01/22/20 20:00 Lipase 33 U/L (73-393) L 01/22/20 20:00 Home Medications: Ascorbic Acid [Vitamin C] 1 tab PO DAILY 05/04/19 Cetirizine HCl [Zyrtec] 1 tab PO DAILY PRN 05/04/19 Divalproex Sodium [Depakote] 1 tab PO TID PRN 05/04/19 Docusate Sodium 1 tab PO BID PRN 05/04/19 Melatonin [Melatonin*] 2 tab PO BEDTIME 05/04/19 Sertraline [Zoloft*] 1 tab PO DAILY 05/04/19 Tamsulosin [Flomax*] 1 tab PO DAILY 05/04/19 Trazodone [Desyrel*] 1 tab PO BEDTIME 05/04/19 Acetaminophen [8Hr Arthritis Pain] 650 mg PO Q6HP PRN #60 tablet.er 01/24/20 Cefdinir [Omnicef] 300 mg PO BID #10 capsule 01/24/20 Levetiracetam [Keppra] 500 mg PO BID #60 tablet 01/24/20 New Medications: Acetaminophen [8Hr Arthritis Pain] 650 mg PO Q6HP PRN #60 tablet.er PRN Reason: Pain Scale 2-4 (Mild) Levetiracetam [Keppra] 500 mg PO BID #60 tablet Cefdinir [Omnicef] 300 mg PO BID #10 capsule Patient Discharge Instructions: OK TO DC IV AND DC HOME. Would advise against continuing Ultram especially in older male patients with a history of seizures as it can decrease seizure threshold. FOLLOW-UP WITH ALF PHYSICIANS PER THEIR GUIDELINES. RETURN TO THE ER IF SYMPTOMS WORSEN. CALL or TEXT DR. HINTON AT [phone] IF ANY QUESTIONS REGARDING HOSPITAL STAY. PLEASE CALL THE FLOOR AT [phone] IF ANY MEDICATION OR NURSING QUESTIONS. Diet: AHA Activity: Fall precautions Time spent managing pt's care (in minutes): 35
== END 2020-01-24 16:40 | DRG 177 ==
LOC: ER 18:37 → ERHOLD 22:12 → 3RD-ICU 01-23 07:36
PROVIDERS: ADMIT Hospitalist; ATTEND Hospitalist
DX: U07.1 COVID-19 (principal); J12.89 Other viral pneumonia; R41.841 Cognitive communication deficit; G30.1 Alzheimer's disease with late onset; F02.80 Dementia in other diseases classified elsewhere, unspecified severity, without behavioral disturbance, psychotic disturbance, mood disturbance, and anxiety; E86.0 Dehydration; Z79.899 Other long term (current) drug therapy
CPT/HCPCS: 36415; 51702; 70450; 71045; 71250; 74176; 80048; 80076; 80164; 81003; 81015; 82140; 82728; 83605; 83690; 83735; 83880; 84484; 85025; 85379; 85610; 87040; 87086; 87088; 93005; 96361; 96365; 96367; 96368; 96375; 99285; J1100; J1644; J2543; J3411; J7030; J7040

== ENCOUNTER 2021-06-08 08:22 | Inpatient (IN) | payer OTHER ==
[2021-06-08] MEDS ORDERED: CEFTRIAXONE 1000 MG/VIAL ONE (09:04)
[2021-06-08] MEDS ORDERED: NA CHLORIDE 0.9% 250 ML ONE (09:04)
[2021-06-08] MEDS ORDERED: NA CHLORIDE 0.9% 1,000 ML ONE (09:04)
[2021-06-08] MEDS ORDERED: AZITHROMYCIN 500 MG INJ IVPB ONE (09:04)
[2021-06-08] MEDS ORDERED: FAMOTIDINE 20 MG/2 ML VIAL IV ONE (09:04)
[2021-06-08] MEDS ORDERED: NA CHLORIDE 0.9% 50 ML ONE (09:05)
[2021-06-08 09:17] LABS: Absolute Lymphocytes (CBC) 1.2 K/uL (0.7-4.9); Hematocrit 38.2 % (39.6-49.0); Lymphocytes % 13.7 % (15.3-44.8); MPV 7.2 fL (7.6-11.3); RBC Red Blood Cell Count 4.63 M/uL (4.33-5.43)
[2021-06-08 09:22] LABS: Protime INR 1.11
--- NOTE | 2021-06-08 09:22 | EDPHYS ---
Physician Documentation [facility] Name: Anette Reis Age: 71 yrs Sex: Male : 1950 Arrival Date: 06/08/2021 Time: 08:34 Bed 13 Private MD: MARISA Physician Russ Beverly HPI: 06/08 08:55 This 71 yrs old Male presents to ER via EMS with complaints of dyspnea, covid cherelle positive and hypoxia. 08:55 The patient has shortness of breath at rest. Onset: The symptoms/episode began/occurred cherelle 2 day(s) ago. Duration: The symptoms are continuous, and are steadily getting worse. The patient's shortness of breath has no apparent modifying factors. Associated signs and symptoms: Pertinent positives: non-productive cough. Severity of symptoms: At their worst the symptoms were mild in the emergency department the symptoms are unchanged. The patient or guardian reports cough, described as moderate, difficulty breathing, flu symptoms. Severity of symptoms: At their worst the symptoms were mild, in the emergency department the symptoms are unchanged. Associated signs and symptoms: The patient has no apparent associated signs or symptoms. Historical: - Allergies: 08:52 NKDA; ap3 - Home Meds: 08:52 levetiracetam 100 mg/mL oral soln 5 mL 2 times per day [Active]; gabapentin 400 mg oral ap3 cap 1 cap 3 times per day [Active]; acetaminophen-codeine 300-30 mg oral tab 1 tab three times a day [Active]; sertraline 25 mg oral tab 1 tab once daily [Active]; Depakote Sprinkles 125 mg Oral CDRS 1 caps daily [Active]; ascorbic acid (vitamin C) 500 mg tab 1 cap daily [Active]; trazodone 50 mg Oral tab 1 tab at bedtime [Active]; Flomax 0.4 mg Oral cap 1 cap once daily [Active]; acetaminophen 325 mg Oral cap 2 cap 4 hours as needed [Active]; docusate sodium 100 mg Oral cap 1 cap once daily [Active]; - PMHx: 08:52 Anxiety; cognitive communication deficit; ENCEPHALOPATHY; etoh abuse; Seizures; ap3 tinnitus; Depressive disorder; Dementia; Alcoholism; Congestive heart failure; - Immunization history:: Client reports receiving the 2nd dose of the Covid vaccine. - Social history:: Smoking status: unknown. - Family history:: not pertinent. ROS: 08:55 Constitutional: Negative for fever, chills, and weight loss, Eyes: Negative for injury, cherelle pain, redness, and discharge, ENT: Negative for injury, pain, and discharge, Neck: Negative for injury, pain, and swelling, Cardiovascular: Negative for chest pain, palpitations, and edema, Abdomen/GI: Negative for abdominal pain, nausea, vomiting, diarrhea, and constipation, Back: Negative for injury and pain, : Negative for injury, bleeding, discharge, and swelling, MS/Extremity: Negative for injury and deformity, Skin: Negative for injury, rash, and discoloration, Neuro: Negative for headache, weakness, numbness, tingling, and seizure, Psych: Negative for depression, anxiety, suicide ideation, homicidal ideation, and hallucinations, Allergy/Immunology: Negative for hives, rash, and allergies, Endocrine: Negative for neck swelling, polydipsia, polyuria, polyphagia, and marked weight changes, Hematologic/Lymphatic: Negative for swollen nodes, abnormal bleeding, and unusual bruising. 08:55 Respiratory: Positive for cough, shortness of breath, at rest. Exam: 08:55 Constitutional: This is a well developed, well nourished patient who is awake, alert, cherelle and in no acute distress. Head/Face: Normocephalic, atraumatic. Eyes: Pupils equal round and reactive to light, extra-ocular motions intact. Lids and lashes normal. Conjunctiva and sclera are non-icteric and not injected. Cornea within normal limits. Periorbital areas with no swelling, redness, or edema. ENT: Nares patent. No nasal discharge, no septal abnormalities noted. Tympanic membranes are normal and external auditory canals are clear. Oropharynx with no redness, swelling, or masses, exudates, or evidence of obstruction, uvula midline. Mucous membranes moist. Neck: Trachea midline, no thyromegaly or masses palpated, and no cervical lymphadenopathy. Supple, full range of motion without nuchal rigidity, or vertebral point tenderness. No Meningismus. Chest/axilla: Normal chest wall appearance and motion. Nontender with no deformity. No lesions are appreciated. Cardiovascular: Regular rate and rhythm with a normal S1 and S2. No gallops, murmurs, or rubs. Normal PMI, no JVD. No pulse deficits. Abdomen/GI: Soft, non-tender, with normal bowel sounds. No distension or tympany. No guarding or rebound. No evidence of tenderness throughout. Back: No spinal tenderness. No costovertebral tenderness. Full range of motion. Male : Normal genitalia with no discharge or lesions. Skin: Warm, dry with normal turgor. Normal color with no rashes, no lesions, and no evidence of cellulitis. MS/ Extremity: Pulses equal, no cyanosis. Neurovascular intact. Full, normal range of motion. Neuro: Awake and alert, GCS 15, oriented to person, place, time, and situation. Cranial nerves II-XII grossly intact. Motor strength 5/5 in all extremities. Sensory grossly intact. Cerebellar exam normal. Normal gait. Psych: Awake, alert, with orientation to person, place and time. Behavior, mood, and affect are within normal limits. 08:55 ECG was reviewed by the Attending Physician. 08:55 Respiratory: the patient does not display signs of respiratory distress, Respirations: normal, Breath sounds: decreased breath sounds, rhonchi, that are mild, Respiratory rate: 84 Vital Signs: 08:41 BP 129 / 75; Pulse 84; Resp 18; Temp 98.3; Pulse Ox 100% on 2 lpm NC; ap3 11:46 BP 112 / 77; Pulse 97; Resp 18; Pulse Ox 96% on 2 lpm NC; ap3 MDM: 08:35 Patient medically screened. cherelle 08:58 Differential diagnosis: Anemia asthma, Bronchitis CHF exacerbation, Chronic Obstructive cherelle Pulmonary Disease Myocardial Infarction pneumonia, pulmonary edema, reactive airway disease, Sepsis. Antibiotic administration: Rocephin and Zithromax given. The patient's Wells Deep Vein Thrombosis Score was calculated as follows: Total Score: 0-2 Pts- Low Risk. Differential Diagnosis: Obstructed Airway Bronchitis Influenza Upper Respiratory Infection Sinusitis Pharyngitis Asthma Exacerbation Viral Syndrome Pneumonia. The patient's pulmonary embolism risk score was calculated as follows: Total Score: 0-2 points. This patient was found to be at low risk for a pulmonary embolism by using the Well's assessment criteria. Immunization status: Pneumococcal vaccine: Influenza vaccine: Data reviewed: vital signs, nurses notes, EMS record, lab test result(s), EKG, radiologic studies, CT scan, plain films. Data interpreted: hand winder: rate is 84 beats/min, rhythm is regular, Pulse oximetry: on room air is 84 %. Test interpretation: by ED physician or midlevel provider: ECG, plain radiologic studies. Counseling: I had a detailed discussion with the patient and/or guardian regarding: the historical points, exam findings, and any diagnostic results supporting the discharge/admit diagnosis, the presence of at least one elevated blood pressure reading (>120/80) during this emergency department visit, lab results, radiology results, the need for further work-up and treatment in the hospital. 06/08 08:54 Order name: Basic Metabolic Panel [facility] 06/08 08:54 Order name: CBC with Diff [facility] 06/08 08:54 Order name: LFT's [facility] 06/08 08:54 Order name: Magnesium [facility] 06/08 08:54 Order name: NT PRO-BNP [facility] 06/08 08:54 Order name: PT-INR; Complete Time: 10:[address] [facility] 06/08 08:54 Order name: Troponin HS [facility] 06/08 08:54 Order name: Blood Culture Adult (2) [facility] 06/08 08:54 Order name: CRP [facility] 06/08 08:54 Order name: Lactate; Complete Time: 10:[address] [facility] 06/08 08:54 Order name: Ferritin [facility] 06/08 08:54 Order name: Valproic Acid (depakote) [facility] 06/08 08:54 Order name: Urine Culture [facility] 06/08 08:54 Order name: Basic Metabolic Panel [facility] 06/08 08:54 Order name: XRAY Chest (1 view); Complete Time: 10:[address] [facility] 06/08 08:54 Order name: CBC with Automated Diff; Complete Time: 10:25 [facility] 06/08 10:29 Order name: Urine Dipstick-Ancillary [facility] 06/08 13:04 Order name: Lactate Sepsis 2 HR Follow-up [facility] 06/08 15:15 Order name: C-Reactive Protein [facility] 06/08 15:15 Order name: C-Reactive Protein [facility] 06/08 15:15 Order name: CBC with Automated Diff [facility] 06/08 15:15 Order name: CBC with Automated Diff [facility] 06/08 15:15 Order name: Comprehensive Metabolic Panel [facility] 06/08 15:15 Order name: Comprehensive Metabolic Panel [facility] 06/08 15:15 Order name: Ferritin [facility] 06/08 15:15 Order name: Ferritin [facility] 06/08 15:15 Order name: Protime (+INR) [facility] 06/08 15:15 Order name: Protime (+INR) [facility] 06/08 15:15 Order name: PTT, Activated Partial Thromb [facility] 06/08 15:15 Order name: PTT, Activated Partial Thromb [facility] 06/08 08:54 Order name: EKG; Complete Time: 08:[address] [facility] 06/08 08:54 Order name: Cardiac monitoring; Complete Time: 09:[address] [facility] 06/08 08:54 Order name: EKG - Nurse/Tech; Complete Time: 09:[address] [facility] 06/08 08:54 Order name: IV Saline Lock; Complete Time: 09:[address] [facility] 06/08 08:54 Order name: Labs collected and sent; Complete Time: 09:[address] [facility] 06/08 08:54 Order name: O2 Per Protocol; Complete Time: 09:[address] [facility] 06/08 08:54 Order name: O2 Sat Monitoring; Complete Time: 09:[address] [facility] 06/08 08:54 Order name: CT Chest Abdomen Pelvis W/O Contrast; Complete Time: 10:[address] [facility] 06/08 08:54 Order name: Urine Dipstick-Ancillary (obtain specimen); Complete Time: 10:[address] [facility] 06/08 15:15 Order name: Heart Healthy [facility] 06/08 15:15 Order name: Chest Single View [facility] 06/08 15:15 Order name: Chest Single View [facility] EC:55 Rate is 84 beats/min. Rhythm is regular. QRS [place] is Normal. MN interval is normal. QRS cherelle interval is normal. QT interval is normal. No Q waves. T waves are Normal. No ST changes noted. Clinical impression: NSR w/ Non-specific ST/T Changes and No evidence of ischemia. Interpreted by me. Reviewed by me. Administered Medications: 09:31 Drug: NS 0.9% 1000 ml Route: IV; Rate: 125 ml/hr; Site: right antecubital; ap3 09:31 Drug: Pepcid (famotidine) 20 mg Route: IVP; Site: right antecubital; ap3 10:53 Follow up: Response: No adverse reaction ap3 09:32 Drug: Rocephin (cefTRIAXone) 1 grams Route: IV; Rate: per protocol; Site: right ap3 antecubital; 10:53 Follow up: IV Status: Completed infusion; IV Intake: 100ml ap3 10:51 Drug: AtroVENT (ipratropium) Aerosol 0.5 mg Route: Inhalation; ap3 10:52 Drug: Zosyn (piperacillin-tazobactam) 3.375 grams Route: IVPB; Infused Over: 60 mins; ap3 Site: right antecubital; 10:52 Drug: Xopenex (levalbuterol) 1.25 mg Route: Inhalation; ap3 11:45 Drug: Zithromax (azithromycin) 500 mg Route: IVPB; Infused Over: 1 hrs; Site: right ap3 antecubital; 11:45 Follow up: IV Status: Completed infusion ap3 Disposition Summary: 06/08/21 09:21 Hospitalization Ordered Hospitalization Status: Inpatient Admission cherelle Provider: Kenneth Irvin cha Location: Telemetry/MedSurg (Inpatient) cherelle Condition: Fair cherelle Problem: new cherelle Symptoms: have improved cherelle Bed/Room Type: Standard [facility] Room Assignment: 401(06/08/21 15:27) dw Diagnosis - Coronavirus infection, unspecified cherelle - Pneumonia due to SARS-associated coronavirus cherelle - Hypoxemia cherelle - Pneumonia, unspecified organism - left, aspiration cherelle - Atelectasis - left cherelle Forms: - Medication Reconciliation Form cherelle - SBAR form cherelle Signatures: Dispatcher [employer] Ksenia Brooke RN RN dw Anderson, Corey, MD MD cha Prokisch, Amanda, RN RN ap3 Corrections: (The following items were deleted from the chart) 15: 09:21 cherelle patel
--- NOTE | 2021-06-08 09:22 | ER ---
Nurse's Notes [facility] Name: Anette Reis Age: 71 yrs Sex: Male : 1950 Arrival Date: 06/08/2021 Time: 08:34 Bed 13 Private MD: Diagnosis: Coronavirus infection, unspecified;Pneumonia due to SARS-associated coronavirus;Hypoxemia;Pneumonia, unspecified organism-left, aspiration;Atelectasis-left Presentation: 06/08 08:41 Chief complaint: EMS states: they were called to [facility] for a Covid positive ap3 patient, who was having low oxygen readings over night. Upon EMS's arrival it is reported the patient was on 2 liters nasal canula on 2 liters. Coronavirus screen: Client reports previous positive COVID test result. Ebola Screen: No symptoms or risks identified at this time. Initial Sepsis Screen: Does the patient meet any 2 criteria? Altered Mental Status. Does the patient have a suspected source of infection? No. Patient's initial sepsis screen is negative. Risk Assessment: Do you want to hurt yourself or someone else? Patient reports no desire to harm self or others. Onset of symptoms was May 07, 2021. Care prior to arrival: None. 08:41 Method Of Arrival: EMS: [facility] ap3 08:41 Acuity: RICO 3 ap3 Triage Assessment: 08:47 General: Appears in no apparent distress. Behavior is restless. Pain: Unable to use ap3 pain scale. Patient is disoriented. patient says "ow" each time he is touched, even if it is lightly. EENT: Eyes are tearing on right inner canthus and left inner canthus. Neuro: Level of Consciousness is obeys commands, confused, Oriented to person, Speech is normal. Cardiovascular: Capillary refill < 3 seconds Patient's skin is warm and dry. Respiratory: Airway is patent Respiratory effort is even, unlabored, Respiratory pattern is regular, symmetrical, Breath sounds are clear in right upper lobe and left upper lobe Breath sounds are diminished in right middle lobe and left lower lobe. Historical: - Allergies: 08:52 NKDA; ap3 - Home Meds: 08:52 levetiracetam 100 mg/mL oral soln 5 mL 2 times per day [Active]; gabapentin 400 mg oral ap3 cap 1 cap 3 times per day [Active]; acetaminophen-codeine 300-30 mg oral tab 1 tab three times a day [Active]; sertraline 25 mg oral tab 1 tab once daily [Active]; Depakote Sprinkles 125 mg Oral CDRS 1 caps daily [Active]; ascorbic acid (vitamin C) 500 mg tab 1 cap daily [Active]; trazodone 50 mg Oral tab 1 tab at bedtime [Active]; Flomax 0.4 mg Oral cap 1 cap once daily [Active]; acetaminophen 325 mg Oral cap 2 cap 4 hours as needed [Active]; docusate sodium 100 mg Oral cap 1 cap once daily [Active]; - PMHx: 08:52 Anxiety; cognitive communication deficit; ENCEPHALOPATHY; etoh abuse; Seizures; ap3 tinnitus; Depressive disorder; Dementia; Alcoholism; Congestive heart failure; - Immunization history:: Client reports receiving the 2nd dose of the Covid vaccine. - Social history:: Smoking status: unknown. - Family history:: not pertinent. Screenin:47 Abuse screen: Denies threats or abuse. Nutritional screening: No deficits noted. ap3 Tuberculosis screening: No symptoms or risk factors identified. Fall Risk No fall in past 12 months (0 pts). Secondary diagnosis (15 points) Alzheimer's, dementia, IV access (20 points). Ambulatory Aid- None/Bed Rest/Nurse Assist (0 pts). Mental Status- Overestimates/Forgets Limitations (15 pts.). Total Anand Fall Scale indicates High Risk Score (45 or more points). Fall prevention measures have been instituted. Side Rails Up X 2 Placed Close to Nursing Station Frequent Obs/Assessments Occuring As available patient and family educated on Fall Prevention Program and Strategies. Assessment: 11:49 Reassessment:. Reassessment: patient in bed, with head of bed lifted at apporx 45 ap3 degrees. patient is currently on 2 liters via nasal canula. Bed is locked and in lowest position, Side rails are up X's 2, call light is within reach. Patient is oriented to self. . Vital Signs: 08:41 BP 129 / 75; Pulse 84; Resp 18; Temp 98.3; Pulse Ox 100% on 2 lpm NC; ap3 11:46 BP 112 / 77; Pulse 97; Resp 18; Pulse Ox 96% on 2 lpm NC; ap3 ED Course: 08:34 Patient arrived in ED. cherelle 08:34 Russ Beverly MD is Attending Physician. cherelle 08:38 EKG done, by ED staff, reviewed by Russ Beverly MD. em1 08:41 Ana Elliott, RN is Primary Nurse. ap3 08:44 Triage completed. ap3 08:47 Inserted saline lock: 22 gauge in right antecubital area, using aseptic technique. ap3 Blood collected. 08:49 Arm band placed on right wrist. ap3 08:49 Patient has correct armband on for positive identification. Placed in gown. Bed in low ap3 position. Call light in reach. Side rails up X2. laboratory monitor on. Pulse ox on. NIBP on. Door closed. Noise minimized. Warm blanket given. Pillow given. 09:17 XRAY Chest (1 view) In Process Unspecified. EDMS 09:18 CT Chest Abdomen Pelvis W/O Contrast In Process Unspecified. EDMS 09:20 Kenneth Irvin MD is Hospitalizing Provider. cherelle 10:31 Coud inserted, using sterile technique, 14 Fr. Returned cloudy urine. To gravity ap3 drainage. Urine specimen collected. Patient tolerated well. 17:00 No provider procedures requiring assistance completed. Patient admitted, IV remains in ap3 place. Administered Medications: 09:31 Drug: NS 0.9% 1000 ml Route: IV; Rate: 125 ml/hr; Site: right antecubital; ap3 09:31 Drug: Pepcid (famotidine) 20 mg Route: IVP; Site: right antecubital; ap3 10:53 Follow up: Response: No adverse reaction ap3 09:32 Drug: Rocephin (cefTRIAXone) 1 grams Route: IV; Rate: per protocol; Site: right ap3 antecubital; 10:53 Follow up: IV Status: Completed infusion; IV Intake: 100ml ap3 10:51 Drug: AtroVENT (ipratropium) Aerosol 0.5 mg Route: Inhalation; ap3 10:52 Drug: Zosyn (piperacillin-tazobactam) 3.375 grams Route: IVPB; Infused Over: 60 mins; ap3 Site: right antecubital; 10:52 Drug: Xopenex (levalbuterol) 1.25 mg Route: Inhalation; ap3 11:45 Drug: Zithromax (azithromycin) 500 mg Route: IVPB; Infused Over: 1 hrs; Site: right ap3 antecubital; 11:45 Follow up: IV Status: Completed infusion ap3 Intake: 10:53 IV: 100ml; Total: 100ml. ap3 Outcome: 09:21 Decision to Hospitalize by Provider. cherelle 17:00 Admitted to Tele accompanied by tech. ap3 17:00 Condition: good 17:00 Discharge instructions given to patient, family, Instructed on the need for admit, Demonstrated understanding of instructions. 17:00 Patient left the ED. ap3 Signatures: Dispatcher [employer] Russ Singh MD MD cha Martinez, Eric em1 Ana Elliott RN RN ap3
--- NOTE | 2021-06-08 09:34 | RAD REPORT ---
EXAM DESCRIPTION: CT - Chest Abd Pelvis Wo Con - 06/08/2021 9:18 am CLINICAL HISTORY: Cough;Abdominal distention, COVID positive, a mass COMPARISON: Chest Abd Pelvis Wo Con dated 01/23/2020; Pelvis Angio dated 02/28/2021 TECHNIQUE: Axial 5 millimeter thick images of the chest, abdomen and pelvis were obtained without IV contrast. Oral contrast was administered. All CT scans are performed using dose optimization technique as appropriate and may include automated exposure control or mA/KV adjustment according to patient size. FINDINGS: Right lung field is clear. No typical COVID-19 infiltrative process seen on the right. The re is trace atelectasis in the posterior gutter on the right. Overall left hemithorax volume loss is present. Partial atelectasis is present in the mid and lingula portions of the left upper lung field and the left lower lobe. Patchy pneumonia changes could easily be masked in this region. This is not a typical COVID-19 pneumonia pattern. Correlation is needed with any clinical or laboratory findings for pneumonia. Trace left-sided pleural fluid. There is no pneumothorax. There is left mediastinal shift. No endobr onchial lesion. No chest wall mass or abnormal axillary lymphadenopathy seen. Mediastinal and hilar regions show no mass or lymphadenopathy. No significant cardiac finding. The liver, spleen and pancreas show no significant findings for non contrast imaging. Gallbladder an d biliary tree are normal. No hydronephrosis or suspicious renal mass. Isodense masses and pyelonephritis cannot be excluded on non contrast imaging. No adrenal abnormalities. No bladder mass seen. Minimal hyperdensity posterior left bladder favored to be small bladder stones rather than bladder wall calcification. These are ne w from the February 2021 study. No dilated bowel loops or focal ball bowel wall thickening. Moderate stool volume scattered throughou t the colon. No active GI process identifiable. No free air, free fluid or inflammatory stranding. N o hernia, mass or bulky lymphadenopathy. Advanced lower lumbar degenerative changes are present. There are advanced degenerative changes prese nt at each hip joint. IMPRESSION: Partial atelectasis in the left upper and left lower lobes present with additional patch y airspace opacities present. Mild or early pneumonia changes could be masked within these areas of a telectatic lung. Chest findings are not classic COVID-19 pneumonia. Correlation is needed with any clinical or laborat ory findings that suggest a left lung field bacterial pneumonia. No acute abdomen or pelvic findings identified. Nonacute findings detailed in the body of the report. CT abdomen and pelvis imaging shows no significant or suspicious finding.
--- NOTE | 2021-06-08 09:39 | RAD REPORT ---
EXAM DESCRIPTION: RAD - Chest Single View - 06/08/2021 9:17 am CLINICAL HISTORY: COUGH, decreased O2 saturation, AMS COMPARISON: Portable December 2019 TECHNIQUE: AP portable chest image was obtained 06/08/2021 9:17 am in supine position. FINDINGS: Lung volumes are very low in the patient is rotated to the left. No peripheral mass or con solidation seen in the right lung field. Interstitial markings are prominent but not clearly differen t. Much of the left lung field is obscured. Left lung volume is significantly reduced deep in compare d to the small right lung volume. Airspace opacification is evident. Left lung field pneumonia is hannah pected. Heart is partially obscured by the left lung field findings. True cardiomegaly is doubtful. No pneum othorax or large pleural effusion. No acute bony abnormality seen. No acute aortic findings suspected . IMPRESSION: Limited portable study showing airspace opacification in the mid and lower left lung fie ld. Lung volumes are very low. Atelectasis is likely present superimposed with pneumonia on the left.
[2021-06-08 09:42] LABS: ALT/SGPT 23 U/L (12-78); AST/SGOT 41 U/L (15-37); Albumin 2.9 g/dL (3.4-5.0); Alkaline Phosphatase 82 U/L (45-117); BUN Blood Urea Nitrogen 24 mg/dL (7-18); Bicarbonate 31 mmol/L (21-32); Bilirubin Direct 0.2 mg/dL (0-0.2); Bilirubin Total 0.5 mg/dL (0.2-1.0); Ferritin 264.5 ng/mL (26-388); Glucose Level 96 mg/dL (74-106); NT PRO-BNP 164 pg/mL (<125); Potassium 3.6 mmol/L (3.5-5.1); Protein, Total 7.9 g/dL (6.4-8.2); Sodium Level 142 mmol/L (136-145); Valproic Acid (Depakene) Level 4.9 ug/mL (50-100)
[2021-06-08] MEDS ORDERED: NA CHLORIDE 0.9% 100 ML IV ONE (09:52)
[2021-06-08] MEDS ORDERED: PIPERACIL/TAZO 3.375 GM VIAL IV ONE (09:53)
[2021-06-08 10:29] LABS: Urine Blood Negative (Negative); Urine Glucose Negative (Negative); Urine Protein 1+ (Negative); Urine Specific Gravity 1.025 (1.005-1.030); Urine pH 5.5 (5.0-7.0)
[2021-06-08] MEDS ORDERED: LEVALBUTEROL 1.25 MG/3 ML NEB ONE (10:46)
[2021-06-08] MEDS ORDERED: IPRATROPIUM BROM 0.5MG/2.5ML ONE (10:46)
[2021-06-08] MEDS ORDERED: MORPHINE 4 MG/ML SYR IV PRN (15:09)
[2021-06-08] MEDS ORDERED: ACETAMINOPHEN 500 MG TAB PO PRN (15:09)
[2021-06-08] MEDS ORDERED: IPRATROPIUM BROM 0.5MG/2.5ML NEB PRN (15:09)
[2021-06-08] MEDS ORDERED: ONDANSETRON 4 MG/2 ML VIAL IV PRN (15:09)
[2021-06-08] MEDS ORDERED: ALBUTEROL 2.5 MG/3 ML NEB SOL NEB PRN (15:09)
[2021-06-08 18:19] VITALS: BMI 27.6
[2021-06-08] MEDS: APIXABAN 5 MG TABLET PO SCH (20:58)
[2021-06-08] MEDS: METHYLPREDNISOLONE 125 MG INJ IV SCH (20:58)
[2021-06-09 05:51] LABS: Absolute Lymphocytes (CBC) 0.5 K/uL (0.7-4.9); Hematocrit 35.3 % (39.6-49.0); Lymphocytes % 8.9 % (15.3-44.8); MPV 7.1 fL (7.6-11.3); RBC Red Blood Cell Count 4.32 M/uL (4.33-5.43)
[2021-06-09 06:04] LABS: Protime INR 1.31
[2021-06-09 06:12] LABS: ALT/SGPT 27 U/L (12-78); AST/SGOT 35 U/L (15-37); Albumin 2.5 g/dL (3.4-5.0); Alkaline Phosphatase 71 U/L (45-117); BUN Blood Urea Nitrogen 23 mg/dL (7-18); Bicarbonate 28 mmol/L (21-32); Bilirubin Total 0.4 mg/dL (0.2-1.0); Ferritin 337.2 ng/mL (26-388); Glucose Level 149 mg/dL (74-106); Potassium 3.6 mmol/L (3.5-5.1); Protein, Total 7.2 g/dL (6.4-8.2); Sodium Level 144 mmol/L (136-145)
[2021-06-09 08:39] LABS: Blood Morphology Comment NOT SEEN (NOT SEEN); Platelet Estimate ADEQ
[2021-06-09] MEDS: VANCOMYCIN 1.5 GM in NA CHLORIDE 0.9% 500 ML IVPB SCH ×2 (09:00→20:14)
--- NOTE | 2021-06-09 09:26 | RAD REPORT ---
EXAM DESCRIPTION: RAD - Chest Single View - 06/09/2021 6:00 am CLINICAL HISTORY: pneumonia Chest pain. COMPARISON: Chest Single View dated 06/08/2021; Chest Single View dated 01/22/2020; Chest Single View d ated 10/17/2019; Chest Single View dated 05/03/2019 FINDINGS: Portable technique limits examination quality. Mild to moderate bilateral pulmonary opacities are present, most compatible with pneumonia, appearing mildly progressive since comparative study. The heart is moderately enlarged in size. No displaced f ractures.
[2021-06-09] MEDS: METHYLPREDNISOLONE 125 MG INJ IV SCH ×2 (09:59→20:17)
[2021-06-09] MEDS: APIXABAN 5 MG TABLET PO SCH ×2 (10:00→20:18)
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
--- NOTE | 2021-06-09 10:39 | P.PN ---
Subjective Date of Service: 06/08/21 Patient is doing better. Mentation is improved. Review of Systems is unable to be obtained Physical Examination - Vital Signs Temperature: 97.5 F Blood Pressure: 102/58 Pulse: 59 Respirations: 16 Pulse Ox (%): 94 - Physical Exam General: Demented HEENT: Atraumatic, PERRLA, EOMI Neck: Supple, JVD not distended Respiratory: Diminished, Rhonchi/gurgles Cardiovascular: Regular rate/rhythm, Normal S1 S2 Gastrointestinal: Normal bowel sounds, No tenderness Musculoskeletal: No tenderness Integumentary: Pressure ulcer Neurological: Normal speech, Normal tone, Normal affect Lymphatics: No axilla or inguinal lymphadenopathy - Studies Laboratory Data (last 24 hrs) 06/09/21 05:25: Sodium 144, Potassium 3.6, BUN 23 H, Creatinine 0.42 L, Glucose 149 H, Total Bilirubin 0.4, AST 35, ALT 27, Alkaline Phosphatase 71 06/09/21 05:25: PT 15.1 H, INR 1.31, APTT 33.8 06/09/21 05:20: WBC 5.30 D, Hgb 11.1 L, Hct 35.3 L, Plt Count 182 06/08/21 08:37: Magnesium 2.0 Microbiology Data (last 24 hrs): 06/08/21 08:45 Blood - Blood Blood Culture Gram Stain - Final Medications List Reviewed: Yes Assessment & Plan - Problems (Diagnosis) (1) Hypoxemia Status: Acute (2) Pneumonia due to COVID-19 virus Status: Acute (3) Atelectasis Status: Acute (4) Altered mental status Status: Acute Qualifiers: (5) Alzheimer's dementia Status: Acute (6) ETOH abuse Status: Acute (7) Seizure disorder Status: Acute (8) Pressure ulcer Status: Acute Qualifiers: Pressure injury location: thigh (9) Skin tear Status: Acute - Plan Continue with plan of care as mentioned below: 1. IV steroids; change to oral steroids 2. O2 per protocol 3. Pulmonary consultation if symptoms worsen 4. Monitor labs 5. Monitor neuro status closely 6. Repeat chest x-ray 7. Arrange for home oxygen 8. GI and DVT prophylaxis Discharge Plan: [facility] Plan to discharge in: 24 Hours - Advance Directives Does patient have a Living Will: No Does patient have a Durable POA for Healthcare: No - Code Status/Comfort Care Code Status: Full Code Critical Care: No Time Spent Managing PTS Care (In Minutes): 35
[2021-06-10] MEDS: VANCOMYCIN 1.5 GM in NA CHLORIDE 0.9% 500 ML IVPB SCH (08:23)
[2021-06-10] MEDS: APIXABAN 5 MG TABLET PO SCH ×2 (08:24→20:00)
[2021-06-10] MEDS: METHYLPREDNISOLONE 125 MG INJ IV SCH ×2 (08:25→20:00)
[2021-06-10] MEDS ORDERED: MEDIHONEY 44 ML TOPICAL TUBE TOP SCH (09:00)
--- NOTE | 2021-06-10 20:24 | P.DS ---
Discharge Date: 06/10/21 Disposition: TRANSFER TO PENITENTIARY Discharge Condition: GOOD Reason for Admission: Altered mental status; hypoxemia secondary to Covid-19 pneumonia - Problems (1) Hypoxemia Status: Acute (2) Pneumonia due to COVID-19 virus Status: Acute (3) Atelectasis Status: Acute (4) Altered mental status Status: Acute Qualifiers: (5) Alzheimer's dementia Status: Acute (6) ETOH abuse Status: Acute (7) Seizure disorder Status: Acute (8) Pressure ulcer Status: Acute Qualifiers: Pressure injury location: thigh (9) Skin tear Status: Acute Brief History of Present Illness: Patient is a 71-year-old gentleman who comes to the to the hospital from [facility]. Patient has dementia. Patient was short of breath. Patient was found to have hypoxemia. Covid-19 test came back positive. Chest x-ray shows pne umonia. Patient also with atelectasis. Patient will be admitted to the hospital for further evaluation. Will address CODE STATUS with family members as well. Hospital Course: Patient clinical symptoms are stable. Oxygenation is improved. Mentation is back to baseline. At this time patient can go back to [facility]. Vital Signs/Physical Exam: Temp Pulse Resp BP Pulse Ox 97.6 F 80 17 150/66 H 90 L 06/10/21 19:47 06/10/21 19:47 06/10/21 19:47 06/10/21 19:47 06/10/21 19:47 General: Alert, In no apparent distress Laboratory Data at Discharge: WBC 5.30 K/uL (4.3-10.9) D 06/09/21 05:20 Hgb 11.1 g/dL (13.6-17.9) L 06/09/21 05:20 Hct 35.3 % (39.6-49.0) L 06/09/21 05:20 Plt Count 182 K/uL (152-406) 06/09/21 05:20 PT 15.1 SECONDS (9.5-12.5) H 06/09/21 05:25 INR 1.31 06/09/21 05:25 APTT 33.8 SECONDS (24.3-36.9) 06/09/21 05:25 Sodium 144 mmol/L (136-145) 06/09/21 05:25 Potassium 3.6 mmol/L (3.5-5.1) 06/09/21 05:25 BUN 23 mg/dL (7-18) H 06/09/21 05:25 Creatinine 0.42 mg/dL (0.55-1.3) L 06/09/21 05:25 Glucose 149 mg/dL (74-106) H 06/09/21 05:25 Magnesium 2.0 06/08/21 08:37 Total Bilirubin 0.4 mg/dL (0.2-1.0) 06/09/21 05:25 AST 35 U/L (15-37) 06/09/21 05:25 ALT 27 U/L (12-78) 06/09/21 05:25 Alkaline Phosphatase 71 U/L (45-117) 06/09/21 05:25 Home Medications: Ascorbic Acid [Vitamin C] 1 tab PO DAILY 05/04/19 Cetirizine HCl [Zyrtec] 1 tab PO DAILY PRN 05/04/19 Docusate Sodium 1 tab PO BID PRN 05/04/19 Tamsulosin [Flomax*] 1 tab PO DAILY 05/04/19 Trazodone [Desyrel*] 1 tab PO BEDTIME 05/04/19 Acetaminophen [8Hr Arthritis Pain] 650 mg PO Q6HP PRN #60 tablet.er 01/24/20 Multivitamin [Multivitamins] 1 each PO DAILY 02/24/20 Codeine/APAP [Tylenol #3*] 1 tab PO TID 06/08/21 Divalproex [Depakote Sprinkle*] 125 mg PO DAILY 06/08/21 Gabapentin [Neurontin*] 400 mg PO TID 06/08/21 Sertraline [Zoloft*] 25 mg PO DAILY 06/08/21 levETIRAcetam [Levetiracetam] 5 ml PO BID 06/08/21 Albuterol Neb [Proventil 0.083% Neb Soln] 2.5 mg NEB [id number] PRN #30 amp 06/10/21 Apixaban [Eliquis] 5 mg PO BID #30 tablet 06/10/21 Cefdinir [Omnicef] 300 mg PO BID #14 capsule 06/10/21 Ipratropium Neb [Atrovent*] 0.5 mg NEB [id number] PRN #30 amp 06/10/21 Leonard [Leonard*] 1 pkt PO BID #60 powd.pack 06/10/21 Medihoney [Medihoney Woundcare Gel*] 1 appl TOP DAILY #1 tube 06/10/21 predniSONE [Deltasone] 20 mg PO BID #11 tab 06/10/21 New Medications: Ipratropium Neb [Atrovent*] 0.5 mg NEB [id number] PRN #30 amp PRN Reason: Shortness Of Breath Apixaban [Eliquis] 5 mg PO BID #30 tablet Leonard [Leonard*] 1 pkt PO BID #60 powd.pack Medihoney [Medihoney Woundcare Gel*] 1 appl TOP DAILY #1 tube Cefdinir [Omnicef] 300 mg PO BID #14 capsule predniSONE [Deltasone] 20 mg PO BID #11 tab Albuterol Neb [Proventil 0.083% Neb Soln] 2.5 mg NEB [id number] PRN #30 amp PRN Reason: Shortness Of Breath Physician Discharge Instructions: -DC IV and DC home -Follow-up with [facility] physician in 1 to 2 days -Please call Dr. Irvin at [phone] if any questions regarding hospital stay -Please call nursing station at [phone] if any nursing or medication questions -Return to the emergency room if symptoms worsen Diet: Regular Activity: Fall precautions Followup: Ana Maria Briggs MD [Primary Care Provider] - Time spent managing pt's care (in minutes): 35
[2021-06-10] MEDS ORDERED: JUVEN PACKET PO SCH (21:00)
[2021-06-10] MEDS ORDERED: ENSURE ENLIVE 237 ML CAN PO SCH (21:00)
[2021-06-10 23:48] VITALS: O2SAT 90
[2021-06-13 05:49] VITALS: BP 102/58; TEMP 97.5
--- NOTE | 2021-06-13 05:50 | P.PN ---
Date of Service: 06/09/21 Subjective Clinical symptoms continued to improve. Review of Systems is unable to be obtained Physical Examination - Vital Signs Reviewed - Physical Exam General: Demented Respiratory: Diminished, Rhonchi/gurgles Cardiovascular: Regular rate/rhythm, Normal S1 S2 Gastrointestinal: Normal bowel sounds, No tenderness Neurological: Normal speech, Normal tone, Normal affect Assessment & Plan - Problems (Diagnosis) (1) Hypoxemia Status: Acute (2) Pneumonia due to COVID-19 virus Status: Acute (3) Atelectasis Status: Acute (4) Altered mental status Status: Acute Qualifiers: (5) Alzheimer's dementia Status: Acute (6) ETOH abuse Status: Acute (7) Seizure disorder Status: Acute (8) Pressure ulcer Status: Acute Qualifiers: Pressure injury location: thigh (9) Skin tear Status: Acute - Plan Continue with plan of care as mentioned below: 1. IV steroids; change to oral steroids 2. O2 per protocol 3. Pulmonary consultation if symptoms worsen 4. Monitor labs 5. Monitor neuro status closely 6. Repeat chest x-ray 7. Arrange for home oxygen 8. GI and DVT prophylaxis
== END 2021-06-11 00:40 | DRG 177 ==
LOC: ER 08:22 → ERHOLD 15:10 → 4TH 16:15 → OBSVTOIN 06-09 09:34
PROVIDERS: ADMIT Hospitalist; ATTEND Hospitalist
DX: U07.1 COVID-19 (principal); J12.82 Pneumonia due to coronavirus disease 2019; G93.41 Metabolic encephalopathy; J98.11 Atelectasis; R09.02 Hypoxemia; G30.9 Alzheimer's disease, unspecified; F02.80 Dementia in other diseases classified elsewhere, unspecified severity, without behavioral disturbance, psychotic disturbance, mood disturbance, and anxiety; G40.909 Epilepsy, unspecified, not intractable, without status epilepticus; L89.896 Pressure-induced deep tissue damage of other site
CPT/HCPCS: 36415; 71045; 71250; 74176; 80048; 80053; 80076; 80164; 81003; 82728; 83605; 83735; 83880; 84484; 85025; 85610; 85730; 86140; 87040; 87077; 87086; 87088; 87186; 87205; 94760; 96365; 96375; 99251; 99285; G0378; J0456; J2543; J2930; J3370; J7030; J7040; J7050